=== PATIENT | male | born 1980 | race Caucasian/White ===

== ENCOUNTER 2017-12-13 17:00 | Emergency (ER) | payer OTHER ==
[~2017-12-13] VITALS: Ht 200.7 cm; Wt 164.0 kg
[~2017-12-13 17:00] MED LIST: GABA-585 PO; HYDR-971 PO; IBUP800T19 PO; PANT40TA3 PO; SUCR1ORA5 PO; TEST30SO TD; VENL75CA PO; ZOLP12.52 PO
--- NOTE | 2017-12-13 18:01 | PHYS DOC ---
Past History Past Medical History: GERD, Other Past Surgical History: Other Smoking: Non-smoker Alcohol Use: Rarely Drug Use: None Adult General Chief Complaint Chief Complaint: SUICDAL IDEATION HPI HPI 37-year-old male with history of suicide attempt about 20 years ago. He presents today with increasing suicidal thoughts. His plans range from purchasing weapon and shooting himself to cutting himself with a razor blade. He has not been drinking today. He has a history of suicidal thoughts but reports that in the past they would just go away on the road and he would move all and but he finds the thoughts lingering more these past few days. He is here with his significant other. Review of systems is negative for chest pain shortness of breath fevers chills. All other review of systems is negative unless otherwise noted in history of present illness. ED course: 37-year-old male presenting with suicidal ideation. On arrival is afebrile with a normal heart rate. On examination he has an unremarkable examination other than suicidal thoughts. I believe the patient to be medically clear. We will have our telemetry psychiatrist evaluate the patient for consultation for suicidal ideation. The patient was signed out at [address] Gallagher to follow-up on the patient's blood tests and psychiatry consultation along with reevaluation. My initial plan is that the patient would likely warrant admission suicidal ideation. Review of Systems Review of Systems SEE ABOVE. Allergies Allergies Allergies Coded Allergies Type Severity Reaction Last Updated Verified No Known Drug Allergies 01/02/15 No Physical Exam Physical Exam SEE ABOVE Constitutional: Well developed, well nourished, no acute distress, non-toxic appearance. [] HENT: Normocephalic, atraumatic, bilateral external ears normal, oropharynx moist, no oral exudates, nose normal. [] Eyes: PERRLA, EOMI, conjunctiva normal, no discharge. [] Neck: Normal range of motion, no tenderness, supple, no stridor. [] Cardiovascular:Heart rate regular rhythm, no murmur [] Lungs & Thorax: Bilateral breath sounds clear to auscultation [] Abdomen: Bowel sounds normal, soft, no tenderness, no masses, no pulsatile masses. [] Skin: Warm, dry, no erythema, no rash. [] Back: No tenderness, no CVA tenderness. [] Extremities: No tenderness, no cyanosis, no clubbing, ROM intact, no edema. [] Neurologic: Alert and oriented X 3, normal motor function, normal sensory function, no focal deficits noted. [] Psychologic: Psych Examination: General appearance and behavior: well groomed, maintains good eye contact Speech: normal rate and flow, not pressured Affect: congruent with mood Mood: depressed Perception: no illusions or hallucinations Safety: pos for SI. neg for HI. Cognition - Level of consciousness: awake - Orientation: oriented to person, place and time - Attention and concentration: good - Memory (registration, recent and remote): able to recall short and shelter events - Judgment: demonstrates understanding of personal issues with appropriate ways of solving them - Insight: able to self reflect EKG EKG [] Radiology/Procedures Radiology/Procedures [] Course & Med Decision Making Course & Med Decision Making Pertinent Labs and Imaging studies reviewed. (See chart for details) [] Dragon Disclaimer Dragon Disclaimer This electronic medical record was generated, in whole or in part, using a voice recognition dictation system. ADRIANNE JONES MD Dec 13, 2017 18:01
--- NOTE | 2017-12-13 18:08 | EKG ---
[address] [address] Test Date: 2017-12-13 Test Time: 18:04:28 Pat Name: CORIN ISBELL Department: Room: Gender: M Underwriting Support Specialist: MARIELA : 1980 Requested By: ADRIANNE JONES Order Number: [id number] Reading MD: Measurements Intervals Sawyer Rate: 76 P: -22 VT: 138 QRS: 4 QRSD: 78 T: 27 QT: 348 QTc: 395 Interpretive Statements SINUS RHYTHM INCOMPLETE RIGHT BUNDLE BRANCH BLOCK QRS(T) CONTOUR ABNORMALITY CONSIDER ANTEROSEPTAL MYOCARDIAL DAMAGE POSSIBLY ABNORMAL ECG RI6.01 Compared to ECG 01/02/2015 12:23:19 Incomplete right bundle-branch block now present
[2017-12-13 18:22] LABS: BASO # 0.1 x10^3/uL (0.0-0.2); BASO % 1 % (0-3); EOS # 0.2 x10^3/uL (0.0-0.7); EOS % 3 % (0-3); HEMATOCRIT 45.2 % (39.0-53.0); LYMPH # 2.7 x10^3/uL (1.0-4.8); LYMPH % 34 % (24-48); MEAN CORPUSCULAR HEMOGLOBIN 30 pg (25-35); MEAN CORPUSCULAR HGB CONC 33 g/dL (31-37); MEAN CORPUSCULAR VOLUME 89 fL (79-100); MONO # 0.6 x10^3/uL (0.0-1.1); MONO % 8 % (0-9); NEUT # 4.5 x10^3uL (1.8-7.7); NEUT % 55 % (31-73); PLATELET COUNT 331 x10^3/uL (140-400); RED BLOOD COUNT 5.05 x10^6/uL (4.30-5.70); RED CELL DISTRIBUTION WIDTH 15.6 % (11.5-14.5); WHITE BLOOD COUNT 8.1 x10^3/uL (4.0-11.0)
[2017-12-13 18:36] LABS: ALBUMIN 3.9 g/dL (3.4-5.0); ALBUMIN/GLOBULIN RATIO 0.8 (1.0-1.7); CALCIUM 9.6 mg/dL (8.5-10.1); CREATININE 1.4 mg/dL (0.7-1.3); GFR 56.4; POTASSIUM 4.3 mmol/L (3.5-5.1); TOTAL BILIRUBIN 0.7 mg/dL (0.2-1.0); TOTAL PROTEIN 8.5 g/dL (6.4-8.2)
[2017-12-13] MEDS ORDERED: BUTALB/APAP/CAFEIN 50/325/40MG TABLET. PO PRN (20:15)
[2017-12-13] MEDS ORDERED: ONDANSETRON ODT 4 MG TAB.RAPDIS PO ONE (20:15)
[2017-12-13] MEDS ORDERED: ORPHENADRINE CITRATE 60 MG/2 ML VIAL. IM ONE (21:15)
[2017-12-13 22:54] LABS: CLARITY,URINE CLEAR; COLOR,URINE YELLOW
[2017-12-13 22:55] LABS: BACTERIA,URINE 0 /HPF (0-FEW); BILIRUBIN,URINE NEG (NEG); GLUCOSE,URINE NEG (NEG); NITRITE,URINE NEG (NEG); SQUAMOUS EPITHELIAL CELL,UR MOD /LPF; UROBILINOGEN,URINE 0.2 mg/dL (0.2 mg/dL)
[2017-12-14] MEDS ORDERED: LORazepam 1 MG TABLET PO ONE (02:30)
[2017-12-14 07:37] VITALS: BP 120/55
== END 2017-12-14 07:50 ==
LOC: ER 17:00
DX: R45.851 Suicidal ideations (principal); K21.9 Gastro-esophageal reflux disease without esophagitis
CPT/HCPCS: 36415; 80053; 81001; 84484; 85025; 93005; 96372; 99285; G0480; J2360; Q0162

== ENCOUNTER 2018-08-18 15:03 | Emergency (ER) | payer BC ==
[~2018-08-18] VITALS: Ht 200.7 cm; Wt 175.4 kg
[~2018-08-18 15:03] MED LIST changes: +HYDR-3165 PO; -HYDR-971 PO
[2018-08-18] MEDS ORDERED: IV NORMAL SALINE 1,000ML 1,000 ML IV ONE ×3 (15:30→18:00)
--- NOTE | 2018-08-18 15:33 | PHYS DOC ---
Past History Past Medical History: Diabetes, GERD, Kidney Stones, Migraines, Pancreatitis, Other Past Surgical History: Other Smoking: Non-smoker Alcohol Use: Rarely Drug Use: None Adult General Chief Complaint Chief Complaint: BLOOD IN URINE HPI HPI 38-year-old male presents with blood in his urine. Patient states that he had a sensation in his penis for the last 2 days. Today, he noticed there was blood mixed in with his urine. He also has lower abdominal pain that he did not have yesterday. The patient is diabetic on metformin. He has never had hematuria before. He is not sexually active for the last 1 year. Patient also complains of right lateral foot wound. He has had this for a while and wanted to have it checked out. He denies fever or chills. Review of Systems Review of Systems Constitutional: Denies fever or chills [] Eyes: Denies change in visual acuity, redness, or eye pain [] HENT: Denies nasal congestion or sore throat [] Respiratory: Denies cough or shortness of breath [] Cardiovascular: No additional information not addressed in HPI [] GI: Nausea. Denies abdominal pain, vomiting, bloody stools or diarrhea [] : Dysuria and hematuria[] Musculoskeletal: Denies back pain or joint pain [] Integument: Denies rash or skin lesions [] Neurologic: Denies headache, focal weakness or sensory changes [] Endocrine: Denies polyuria or polydipsia [] All other systems were reviewed and found to be within normal limits, except as documented in this note. Allergies Allergies Allergies Coded Allergies Type Severity Reaction Last Updated Verified No Known Drug Allergies 12/13/17 No Physical Exam Physical Exam Constitutional: Well developed, morbidly obese. Well nourished, no acute distress, non-toxic appearance. [] HENT: Normocephalic, atraumatic, bilateral external ears normal, oropharynx moist, no oral exudates, nose normal. [] Eyes: PERRLA, EOMI, conjunctiva normal, no discharge. [] Neck: Normal range of motion, no tenderness, supple, no stridor. [] Cardiovascular:Heart rate regular rhythm, no murmur [] Lungs & Thorax: Bilateral breath sounds clear to auscultation [] Abdomen: Bowel sounds normal, soft, no tenderness, no masses, no pulsatile masses. [] Skin: Warm, dry, no erythema, no rash. [] Back: No tenderness, no CVA tenderness. [] Extremities: No tenderness, no cyanosis, no clubbing, ROM intact, no edema. [] Neurologic: Alert and oriented X 3, normal motor function, normal sensory function, no focal deficits noted. [] Psychologic: Affect normal, judgement normal, mood normal. : Normal external exam of the penis and scrotum. No tenderness of the testicles. No discharge.[] EKG EKG [] Radiology/Procedures Radiology/Procedures [] Course & Med Decision Making Course & Med Decision Making Pertinent Labs and Imaging studies reviewed. (See chart for details) Patient's labs are unremarkable. His urinalysis is still pending. We have given the patient 2 L of fluid and he has not been able to urinate. I'm concern for prostatitis. We will put in a Ornelas to drain the bladder and I will treat him with levofloxacin for 2 weeks. The patient's urinalysis is negative for infection, but I still plan to treat him for prostatitis. He is stable for discharge at this time. He gave us first dose of levofloxacin in the ED. [] Dragon Disclaimer Dragon Disclaimer This electronic medical record was generated, in whole or in part, using a voice recognition dictation system. Departure Departure: Impression: Primary Impression: Prostatitis, acute Additional Impression: Hematuria Disposition: 01 HOME, SELF-CARE Condition: STABLE Referrals: TOY CABAN (PCP) Patient Instructions: Prostatitis, [id number] Scripts Levofloxacin (LEVOFLOXACIN) 500 Mg Tablet 1 TAB PO DAILY for prostatitis for 14 Days, #14 TAB Prov: SAHRA ZALDIVAR DO 08/18/18 Problem Qualifiers SAHRA ZALDIVAR DO Aug 18, 2018 15:33
[2018-08-18] MEDS ORDERED: ONDANSETRON PF 4 MG/2 ML VIAL. IV ONE (15:45)
[2018-08-18 16:19] LABS: BASO # 0.1 x10^3/uL (0.0-0.2); BASO % 1 % (0-3); EOS # 0.4 x10^3/uL (0.0-0.7); EOS % 6 % (0-3); HEMATOCRIT 40.6 % (39.0-53.0); HEMOGLOBIN 13.6 g/dL (13.0-17.5); LYMPH # 2.4 x10^3/uL (1.0-4.8); LYMPH % 35 % (24-48); MEAN CORPUSCULAR HEMOGLOBIN 30 pg (25-35); MEAN CORPUSCULAR HGB CONC 34 g/dL (31-37); MEAN CORPUSCULAR VOLUME 88 fL (79-100); MONO # 0.4 x10^3/uL (0.0-1.1); MONO % 6 % (0-9); NEUT # 3.6 x10^3uL (1.8-7.7); NEUT % 52 % (31-73); PLATELET COUNT 248 x10^3/uL (140-400); RED BLOOD COUNT 4.61 x10^6/uL (4.30-5.70); RED CELL DISTRIBUTION WIDTH 14.1 % (11.5-14.5); WHITE BLOOD COUNT 6.9 x10^3/uL (4.0-11.0)
[2018-08-18] MEDS ORDERED: KETOROLAC 30 MG/ML VIAL. IV ONE (16:30)
[2018-08-18 16:33] LABS: ALBUMIN 3.3 g/dL (3.4-5.0); ALBUMIN/GLOBULIN RATIO 0.8 (1.0-1.7); CALCIUM 8.8 mg/dL (8.5-10.1); CREATININE 1.2 mg/dL (0.7-1.3); GFR 67.1; POTASSIUM 4.3 mmol/L (3.5-5.1); TOTAL BILIRUBIN 0.3 mg/dL (0.2-1.0); TOTAL PROTEIN 7.2 g/dL (6.4-8.2)
[2018-08-18 17:42] VITALS: BP 115/62
[2018-08-18] MEDS ORDERED: LEVO500T8 PO (17:53)
[2018-08-18] MEDS ORDERED: levoFLOXacin 500 MG TABLET PO ONE (18:00)
[2018-08-18] MEDS ORDERED: MORPHINE SULFATE 4 MG/ML DISP.SYRIN. IV ONE (18:00)
[2018-08-18 18:06] LABS: BACTERIA,URINE 0 /HPF (0-FEW); BILIRUBIN,URINE NEG (NEG); CLARITY,URINE CLEAR; COLOR,URINE YELLOW; GLUCOSE,URINE NEG (NEG); NITRITE,URINE NEG (NEG); SQUAMOUS EPITHELIAL CELL,UR OCC /LPF; UROBILINOGEN,URINE 0.2 mg/dL (0.2 mg/dL); WBC,URINE OCC /HPF (0-4)
[2018-08-18] MEDS ORDERED: PHENAZOPYRIDINE 200 MG TABLET. PO ONE ×2 (18:45)
[2018-10-18] MEDS ORDERED: PANT40TA3 PO (17:12)
[2018-10-18] MEDS ORDERED: ATOR20TA PO (17:12)
== END 2018-08-18 19:45 | disposition home or self-care (01) ==
LOC: ER 15:03
DX: N41.0 Acute prostatitis (principal); R31.9 Hematuria, unspecified; E11.9 Type 2 diabetes mellitus without complications; K21.9 Gastro-esophageal reflux disease without esophagitis; G43.909 Migraine, unspecified, not intractable, without status migrainosus; Z87.442 Personal history of urinary calculi; Z79.84 Long term (current) use of oral hypoglycemic drugs
CPT/HCPCS: 36415; 51702; 80053; 81001; 85025; 96374; 96375; 99284; J1885; J2270; J2405; J7030

== ENCOUNTER 2018-08-22 03:50 | Emergency (ER) | payer BC ==
[~2018-08-22] VITALS: Ht 200.7 cm; Wt 175.4 kg
[~2018-08-22 03:50] MED LIST changes: +LEVO500T8 PO
--- NOTE | 2018-08-22 04:29 | PHYS DOC ---
Past History Past Medical History: Diabetes, GERD, Kidney Stones, Migraines, Pancreatitis, Other (ROSEY YOUSSEF DO) Past Surgical History: Other (ROSEY YOUSSEF DO) Smoking: Non-smoker Alcohol Use: Rarely Drug Use: None (ROSEY YOUSSEF DO) Adult General Chief Complaint Chief Complaint: BLOOD IN URINE HPI HPI Patient is a 38-year-old male who presents with blood in his urine. Patient was evaluated in the emergency department several days ago and diagnosed with prostatitis. He had an indwelling urinary catheter placed due to inability to void at that visit. Since that time he has had intermittent feelings of fullness and then "something would give way" and he would be able to urinate through the catheter. Before early this morning, there was no gross blood visible in the urine. Patient was seen by his primary care physician in follow- up yesterday and instructed to leave the catheter in place until the antibiotics were completed. Patient has not followed up with a urologist. Patient has noted blood and clots in his urine since late last night/early this morning. He reports that he is taking his antibiotics. He notes some mild right flank pain, not as bad as his previous kidney stones. Denies any fevers. Nothing seems to make this any better or worse.[] (ROSEY YOUSSEF DO) Review of Systems Review of Systems Constitutional: Denies fever or chills [] Eyes: Denies change in visual acuity, redness, or eye pain [] HENT: Denies nasal congestion or sore throat [] Respiratory: Denies cough or shortness of breath [] Cardiovascular: No chest pain or palpitations[] GI: Denies abdominal pain, nausea, vomiting, bloody stools or diarrhea [] : See history of present illness[] Musculoskeletal: Denies back pain or joint pain [] Integument: Denies rash or skin lesions [] Neurologic: Denies headache, focal weakness or sensory changes [] Endocrine: Denies polyuria or polydipsia [] All other systems were reviewed and found to be within normal limits, except as documented in this note. (ROSEY YOUSSEF DO) Current Medications Current Medications Current Medications Medications (Trade) Dose Ordered Sig/Dalton Start Time Stop Time Status Last Admin Dose Admin Sodium Chloride 1,000 ml @ 1,000 mls/hr 1X ONCE 08/22/18 04:30 08/22/18 05:29 UNV ([facility]) Allergies Allergies Allergies Coded Allergies Type Severity Reaction Last Updated Verified No Known Drug Allergies 12/13/17 No ([facility]) Physical Exam Physical Exam Constitutional: Well developed, well nourished, no acute distress, non-toxic appearance. [] HENT: Normocephalic, atraumatic, bilateral external ears normal, oropharynx moist, no oral exudates, nose normal. [] Eyes: PERRLA, EOMI, conjunctiva normal, no discharge. [] Neck: Normal range of motion, no tenderness, supple, no stridor. [] Cardiovascular:Heart rate regular rhythm, no murmur [] Lungs & Thorax: Bilateral breath sounds clear to auscultation [] Abdomen: Bowel sounds normal, soft, no tenderness, no masses, no pulsatile masses. : Normal male, bilateral descended testes, urinary catheter in place, blood and clots within the lumen of the urinary catheter and within the collection bag itself.[] Skin: Warm, dry, no erythema, no rash. No petechiae [] Back: No tenderness, no CVA tenderness. [] Extremities: No tenderness, no cyanosis, no clubbing, ROM intact, no edema. [] Neurologic: Alert and oriented X 3, normal motor function, normal sensory function, no focal deficits noted. [] Psychologic: Affect normal, judgement normal, mood normal. [] ([facility]) Current Patient Data Vital Signs Vital Signs Date Time Temp Pulse Resp B/P (MAP) Pulse Ox O2 Delivery O2 Flow Rate FiO2 08/22/18 04:00 98.5 78 18 94 Room Air ([facility]) EKG EKG [] ([facility]) Radiology/Procedures Radiology/Procedures Abdominal and Pelvis CT, Without Contrast: History: Right flank pain and gross hematuria. Comparison: None. Procedure: Axial images are obtained of the abdomen and pelvis, without IV or oral contrast. CT Abdomen without Contrast: Findings: Evaluation of solid organs is limited without contrast. Evaluation of stomach and bowel is limited without oral contrast. Liver: Normal. Spleen: Normal. Pancreas: Normal. Adrenal Glands: Normal. Kidneys: Normal. There is no free air or free fluid. There is no lymphadenopathy. Impression: Please see CT Pelvis without Contrast. End Impression. CT Pelvis without Contrast: Findings: The urinary bladder is collapsed from a Ornelas. The appendix is normal. There is no free fluid. There is no lymphadenopathy. There is no pericolonic inflammation identified. Impression: No evidence of urolithiasis or obstructive uropathy.[] (ROSEY YOUSSEF DO) Course & Med Decision Making Course & Med Decision Making Pertinent Labs and Imaging studies reviewed. (See chart for details) Medical decision making: There does not appear to be a significant urinary tract infection, no significant electrolyte abnormalities, and no kidney stone, no intra-abdominal surgical pathology. ED course: Patient arrived, was placed in bed, and tolerated exam well. He was transported to and from radiology with any complications. As the catheter was being irrigated he reported increasing pain. Ultimately the catheter was removed and replaced. As the balloon was being inflated he reported again increased pain so the catheter was removed. Additional IV fluids were administered to ensure that he can urinate. At 0600 patient care is being endorsed to the oncoming physician with the current plan being to ensure that the patient can urinate without the need for a urinary catheter.[] (ROSEY YOUSSEF DO) Course & Med Decision Making The patient was unable to void. We had to replace his Ornelas catheter. I have strongly advised the patient to call the urology office and make an appointment today. He is stable for discharge at this time. (SAHRA ZALDIVAR DO) Dragon Disclaimer Dragon Disclaimer This electronic medical record was generated, in whole or in part, using a voice recognition dictation system. (ROSEY YOUSSEF DO) Departure Departure: Impression: Primary Impression: Hematuria Additional Impression: Urinary catheter complication Referrals: TOY CABAN (PCP) COSME JUAREZ MD Call today to set up follow-up appointment Patient Instructions: Prostatitis Additional Instructions: Drink plenty of fluids. To call today to set up appointment with the urologist. Return to the ER if worsening pain, more blood in the urine, or any other concerns. Scripts Phenazopyridine Hcl (PYRIDIUM) 200 Mg Tablet 200 MG PO TID for dysuria for 2 Days, #6 TAB Prov: ROSEY YOUSSEF DO 08/22/18 Tamsulosin Hcl (FLOMAX) 0.4 Mg Cap.er.24h 1 CAP PO DAILY for dysuria and enlarged prostate, #30 CAP 0 Refills Prov: ROSEY YOUSSEF DO 08/22/18 Problem Qualifiers Primary Impression: Hematuria Hematuria type: unspecified type Qualified Codes: R31.9 - Hematuria, unspecified Additional Impression: Urinary catheter complication Encounter type: initial encounter Qualified Codes: T83.9XXA - Unspecified complication of genitourinary prosthetic device, implant and graft, initial encounter ROSEY YOUSSEF DO Aug 22, 2018 04:29 SAHRA ZALDIVAR DO Aug 22, 2018 15:18
[2018-08-22] MEDS ORDERED: ONDANSETRON PF 4 MG/2 ML VIAL. IV ONE (05:00)
[2018-08-22] MEDS ORDERED: IV NORMAL SALINE 1,000ML 1,000 ML IV ONE ×3 (05:00→07:30)
[2018-08-22 05:03] LABS: BASO # 0.1 x10^3/uL (0.0-0.2); BASO % 1 % (0-3); EOS # 0.3 x10^3/uL (0.0-0.7); EOS % 4 % (0-3); HEMOGLOBIN 13.8 g/dL (13.0-17.5); LYMPH % 37 % (24-48); MEAN CORPUSCULAR HEMOGLOBIN 30 pg (25-35); MEAN CORPUSCULAR HGB CONC 34 g/dL (31-37); MEAN CORPUSCULAR VOLUME 89 fL (79-100); MONO # 0.7 x10^3/uL (0.0-1.1); MONO % 8 % (0-9); NEUT % 50 % (31-73); PLATELET COUNT 270 x10^3/uL (140-400); RED BLOOD COUNT 4.63 x10^6/uL (4.30-5.70)
--- NOTE | 2018-08-22 05:04 | RAD ---
Abdominal and Pelvis CT, Without Contrast: History: Right flank pain and gross hematuria. Comparison: None. Procedure: Axial images are obtained of the abdomen and pelvis, without IV or oral contrast. CT Abdomen without Contrast: Findings: Evaluation of solid organs is limited without contrast. Evaluation of stomach and bowel is limited without oral contrast. Liver: Normal. Spleen: Normal. Pancreas: Normal. Adrenal Glands: Normal. Kidneys: Normal. There is no free air or free fluid. There is no lymphadenopathy. Impression: Please see CT Pelvis without Contrast. End Impression. CT Pelvis without Contrast: Findings: The urinary bladder is collapsed from a Ornelas. The appendix is normal. There is no free fluid. There is no lymphadenopathy. There is no pericolonic inflammation identified. Impression: No evidence of urolithiasis or obstructive uropathy. End impression PQRS Compliance Statement: One or more of the following individualized dose reduction techniques were utilized for this examination: 1. Automated exposure control 2. Adjustment of the mA and/or kV according to patient size 3. Use of iterative reconstruction technique Electronically signed by: Yon Angela III, MD (08/22/2018 5:01 AM) [id number]
[2018-08-22 05:12] LABS: ALBUMIN 3.3 g/dL (3.4-5.0); ALBUMIN/GLOBULIN RATIO 0.8 (1.0-1.7); CALCIUM 8.9 mg/dL (8.5-10.1); CREATININE 1.4 mg/dL (0.7-1.3); GFR 56.1; TOTAL BILIRUBIN 0.3 mg/dL (0.2-1.0); TOTAL PROTEIN 7.2 g/dL (6.4-8.2)
[2018-08-22 05:33] LABS: BILIRUBIN,URINE NEG (NEG); CLARITY,URINE CLOUDY; COLOR,URINE AMBER
[2018-08-22 05:34] LABS: BACTERIA,URINE 0 /HPF (0-FEW); RBC,URINE >40 /HPF (0-2); SQUAMOUS EPITHELIAL CELL,UR OCC /LPF; WBC,URINE OCC /HPF (0-4)
[2018-08-22] MEDS ORDERED: PHEN-318 PO (05:57)
[2018-08-22] MEDS ORDERED: TAMS0.4C97 PO (05:57)
[2018-08-22] MEDS ORDERED: PHENAZOPYRIDINE 100 MG TABLET. PO ONE (06:30)
[2018-08-22] MEDS ORDERED: TAMSULOSIN 0.4 MG CAP.ER.24H. PO ONE (06:30)
[2018-08-22] MEDS ORDERED: LIDOCAINE 2% JELLY 10ML IN APPLICATOR. ONE (08:13)
[2018-08-22 08:26] VITALS: BP 101/77
[2018-10-18] MEDS ORDERED: ATOR20TA PO (17:12)
[2018-10-18] MEDS ORDERED: PANT40TA3 PO (17:12)
== END 2018-08-22 08:28 | disposition home or self-care (01) ==
LOC: ER 03:50
DX: R31.0 Gross hematuria (principal); T83.9XXA Unspecified complication of genitourinary prosthetic device, implant and graft, initial encounter; E11.9 Type 2 diabetes mellitus without complications; K21.9 Gastro-esophageal reflux disease without esophagitis; G43.909 Migraine, unspecified, not intractable, without status migrainosus; Z87.442 Personal history of urinary calculi
CPT/HCPCS: 36415; 51701; 74176; 80053; 81001; 85025; 85610; 96374; 99284; J2405; 96361; J7030

== ENCOUNTER → 2018-08-28 | Outpatient (CLI) | payer BC ==
[2018-08-22 08:26] VITALS: BP 101/77
[~2018-08-28] MED LIST changes: +AMOX1TAB61 PO; +ATOR20TA PO; +CARI350T14 PO; +DIPH25CA58 PO; +GABA800T5 PO; +LAMO100T; +METF10007 PO; +NAPR500T8 PO; +ONDA4TAB7 PO; +PHEN-318 PO; +PROM25TA10 PO; +PROP10TA PO; +TAMS0.4C97 PO; +VENL150C6; +ZOLP10TA4 PO
--- NOTE | 2018-08-28 15:51 | RAD ---
Right foot radiograph 08/28/2018 2:25 PM INDICATION: Right foot ulcer on the bottom lateral side COMPARISON: None available. TECHNIQUE: 2 views the right foot are provided. FINDINGS: There is no acute fracture or dislocation. There is a bipartite medial hallux sesamoid. Bone mineralization is within normal limits. Joint spaces are maintained. Regional mild lateral soft tissue swelling. There is no soft tissue gas or osseous erosion. IMPRESSION: No acute fracture or dislocation. Mild lateral soft tissue swelling without suspicious osseous abnormality. Electronically signed by: Diana Martell MD (08/28/2018 3:48 PM) [id number]
== END | disposition home or self-care (01) ==
LOC: PMG 14:14
PROVIDERS: ATTEND Physician Assistant
DX: L97.519 Non-pressure chronic ulcer of other part of right foot with unspecified severity (principal)
CPT/HCPCS: 73620

== ENCOUNTER 2018-09-28 12:38 | Emergency (ER) | payer BC ==
[~2018-09-28] VITALS: Ht 200.7 cm; Wt 181.4 kg
[~2018-09-28 12:38] MED LIST changes: -AMOX1TAB61 PO; -ATOR20TA PO; -CARI350T14 PO; -DIPH25CA58 PO; -GABA800T5 PO; -LAMO100T; -METF10007 PO; -NAPR500T8 PO; -ONDA4TAB7 PO; -PROM25TA10 PO; -PROP10TA PO; -VENL150C6; -ZOLP10TA4 PO
[2018-09-28] MEDS ORDERED: NAPR500T8 PO (13:01)
--- NOTE | 2018-09-28 13:01 | PHYS DOC ---
Past History Past Medical History: Diabetes, GERD, Kidney Stones, Migraines, Pancreatitis, Other Past Surgical History: Other Smoking: Non-smoker Alcohol Use: Rarely Drug Use: None Adult General Chief Complaint Chief Complaint: KNEE INJURY HPI HPI 38-year-old morbidly obese male with a history of diabetes who is currently wearing a cast on his right lower extremity secondary to diabetic wounds presents with right knee injury. He states he was walking around the cast in his boot over the cast when his right knee buckled. He doesn't have a lot of pain in that knee currently. He has not noticed any swelling. He states this happened a couple of hours ago. He denies any other injury.[] Review of Systems Review of Systems Constitutional: Denies fever or chills [] Eyes: Denies change in visual acuity, redness, or eye pain [] HENT: Denies nasal congestion or sore throat [] Respiratory: Denies cough or shortness of breath [] Cardiovascular: No additional information not addressed in HPI [] GI: Denies abdominal pain, nausea, vomiting, bloody stools or diarrhea [] : Denies dysuria or hematuria [] Musculoskeletal: Per history of present illness[] Integument: Chronic wound right lower extremity[] Neurologic: Denies headache, focal weakness or sensory changes [] Endocrine: Denies polyuria or polydipsia [] All other systems were reviewed and found to be within normal limits, except as documented in this note. Allergies Allergies Allergies Coded Allergies Type Severity Reaction Last Updated Verified No Known Drug Allergies 09/28/18 No Physical Exam Physical Exam Constitutional: Well developed, well nourished, no acute distress, non-toxic appearance. [] HENT: Normocephalic, atraumatic, bilateral external ears normal, oropharynx moist, no oral exudates, nose normal. [] Eyes: PERRLA, EOMI, conjunctiva normal, no discharge. [] Neck: Normal range of motion, no tenderness, supple, no stridor. [] Cardiovascular:Heart rate regular rhythm, no murmur [] Lungs & Thorax: Bilateral breath sounds clear to auscultation [] Abdomen: Bowel sounds normal, soft, no tenderness, no masses, no pulsatile masses. [] Skin: Warm, dry, no erythema, no rash. [] Back: No tenderness, no CVA tenderness. [] Extremities: Right knee is full range of motion no swelling no patellar apprehension ligaments are stable, there is a cast on his right lower leg[] Neurologic: Alert and oriented X 3, normal motor function, normal sensory function, no focal deficits noted. [] Psychologic: Affect normal, judgement normal, mood normal. [] Current Patient Data Vital Signs Vital Signs Date Time Temp Pulse Resp B/P (MAP) Pulse Ox O2 Delivery O2 Flow Rate FiO2 09/28/18 12:51 98.2 94 18 97 Room Air EKG EKG [] Radiology/Procedures Radiology/Procedures [] Course & Med Decision Making Course & Med Decision Making Pertinent Labs and Imaging studies reviewed. (See chart for details) [] Dragon Disclaimer Dragon Disclaimer This electronic medical record was generated, in whole or in part, using a voice recognition dictation system. Departure Departure: Impression: Primary Impression: Right knee sprain Disposition: HOME, SELF-CARE Condition: STABLE Referrals: TOY CABAN (PCP) Patient Instructions: Knee - Wear and Tear Disorders Additional Instructions: Return to the emergency department with any new or concerning symptoms Scripts Naproxen (NAPROXEN) 500 Mg Tablet.dr 1 TAB PO Q12HR PRN for PAIN, #60 TAB 1 Refill Prov: QUIANA RAE DO 09/28/18 Problem Qualifiers Primary Impression: Right knee sprain Encounter type: initial encounter Involved ligament of knee: unspecified ligament Qualified Codes: S83.91XA - Sprain of unspecified site of right knee, initial encounter QUIANA RAE DO September 28, 2018 13:01
[2018-10-18] MEDS ORDERED: PANT40TA3 PO (17:12)
[2018-10-18] MEDS ORDERED: ATOR20TA PO (17:12)
== END 2018-09-28 13:23 | disposition home or self-care (01) ==
LOC: ER 12:38
DX: S83.91XA Sprain of unspecified site of right knee, initial encounter (principal); E11.9 Type 2 diabetes mellitus without complications; K21.9 Gastro-esophageal reflux disease without esophagitis; G43.909 Migraine, unspecified, not intractable, without status migrainosus; Z87.442 Personal history of urinary calculi; X50.9XXA Other and unspecified overexertion or strenuous movements or postures, initial encounter; Y93.01 Activity, walking, marching and hiking; Y92.89 Other specified places as the place of occurrence of the external cause; Y99.8 Other external cause status
CPT/HCPCS: 99284

== ENCOUNTER → 2018-10-05 | Outpatient (CLI) | payer BC ==
[2018-09-28 12:51] VITALS: BP 138/70
[~2018-10-05] MED LIST changes: +AMOX1TAB61 PO; +ATOR20TA PO; +CARI350T14 PO; +DIPH25CA58 PO; +GABA800T5 PO; +LAMO100T; +METF10007 PO; +NAPR500T8 PO; +ONDA4TAB7 PO; +PROM25TA10 PO; +PROP10TA PO; +VENL150C6; +ZOLP10TA4 PO
--- NOTE | 2018-10-05 11:02 | RAD ---
Five-view lumbar spine dated 10/05/2018. No comparison available. Clinical data indication: Low back pain. FINDINGS: AP, lateral, bilateral black and cone-down views of lumbosacral junction. 5 nonrib-bearing vertebral levels. Vertebral body and disc heights are maintained. Mild endplate hypertrophic changes throughout. Mild arthrosis lower lumbar apophyseal joints. No pars defects on the oblique views. IMPRESSION: 1. No acute radiographic abnormality. 2. Mild multilevel spondylosis. Electronically signed by: Enrrique Mckeon MD (10/05/2018 10:58 AM) [facility]
--- NOTE | 2018-10-05 11:02 | RAD ---
Three-view right knee dated 10/05/2018. No comparison available. Clinical data indication: Pain after injury. FINDINGS: 3 views the right knee show normal bony alignment. No displaced fracture. No acute osseous or articular abnormality. No apparent joint effusion or loose body. IMPRESSION: 1. No acute radiographic abnormality. 2. Mild tricompartmental DJD. Electronically signed by: Enrrique Mckeon MD (10/05/2018 10:59 AM) [facility]
== END | disposition home or self-care (01) ==
LOC: DXRAD 10:21
PROVIDERS: ATTEND Physician Assistant Medical
DX: M47.817 Spondylosis without myelopathy or radiculopathy, lumbosacral region (principal); M17.11 Unilateral primary osteoarthritis, right knee
CPT/HCPCS: 72110; 73562

== ENCOUNTER 2018-10-17 16:52 | Inpatient (IN) | payer BC ==
[~2018-10-17] VITALS: Ht 200.7 cm; Wt 180.7 kg
[~2018-10-17 16:52] MED LIST changes: -AMOX1TAB61 PO; -ATOR20TA PO; -CARI350T14 PO; -DIPH25CA58 PO; -GABA800T5 PO; -LAMO100T; -METF10007 PO; -ONDA4TAB7 PO; -PROM25TA10 PO; -PROP10TA PO; -VENL150C6; -ZOLP10TA4 PO
--- NOTE | 2018-10-17 17:00 | PHYS DOC ---
Past History Past Medical History: Diabetes, Kidney Stones, Pancreatitis, Prostatitis, Other Past Surgical History: Other Smoking: Non-smoker Alcohol Use: None Drug Use: None Adult General Chief Complaint Chief Complaint: CHEST PAIN [facility] HPI 38-year-old male presents with sudden onset chest pain. The patient was sitting in his car about running and when he began to get some mild shortness of breath, followed by a central stabbing chest pain. Increase in intensity over a few minutes. He also became diaphoretic. At this time he rates the pain a 7 out of 10. He continues to have diaphoresis. He does not feel quite as short of breath. The patient is a large individual at 6 foot 7 and 175 kg. He is also diabetic. He does not have a personal cardiac history. Coronary artery disease does run in his family. The patient had a stress test about 5 years ago that was reported to be negative. He denies fever or chills. The patient has not had symptoms like this before. Review of Systems Review of Systems Constitutional: Denies fever or chills [] Eyes: Denies change in visual acuity, redness, or eye pain [] HENT: Denies nasal congestion or sore throat [] Respiratory: shortness of breath [] Cardiovascular: No additional information not addressed in HPI [] GI: Denies abdominal pain, nausea, vomiting, bloody stools or diarrhea [] : Denies dysuria or hematuria [] Musculoskeletal: Denies back pain or joint pain [] Integument: Denies rash or skin lesions [] Neurologic: Denies headache, focal weakness or sensory changes [] Endocrine: Denies polyuria or polydipsia [] All other systems were reviewed and found to be within normal limits, except as documented in this note. Allergies Allergies Allergies Coded Allergies Type Severity Reaction Last Updated Verified No Known Drug Allergies 09/28/18 No Physical Exam Physical Exam Constitutional: Well developed, morbid obesity, well nourished, mild acute distress, diaphoretic. [] HENT: Normocephalic, atraumatic, bilateral external ears normal, oropharynx moist, no oral exudates, nose normal. [] Eyes: PERRLA, EOMI, conjunctiva normal, no discharge. [] Neck: Normal range of motion, no tenderness, supple, no stridor. [] Cardiovascular:Heart rate regular rhythm, no murmur [] Lungs & Thorax: Bilateral breath sounds clear to auscultation [] Abdomen: Bowel sounds normal, soft, no tenderness, no masses, no pulsatile masses. [] Skin: Warm, dry, no erythema, no rash. [] Back: No tenderness, no CVA tenderness. [] Extremities: No tenderness, no cyanosis, no clubbing, ROM intact, no edema. [] Neurologic: Alert and oriented X 3, normal motor function, normal sensory function, no focal deficits noted. [] Psychologic: Affect normal, judgement normal, mood concerned. [] EKG EKG Sinus rhythm, rate 81, normal axis, no ST elevations or depressions[] Radiology/Procedures Radiology/Procedures [] Course & Med Decision Making Course & Med Decision Making Pertinent Labs and Imaging studies reviewed. (See chart for details) Patient's labs are unremarkable. His EKG is unremarkable. His troponin is negative. The troponin is only one hour after the symptoms started. The patient's HEART score is 4. The patient's chest x-ray is also suspicious for pneumonia on the right side. I will treat him with azithromycin. I spoke with Dr. Cordero and he has accepted patient for admission chest pain rule out as well as further treatment of his pneumonia. The patient is in agreement with this plan. 33 minutes of critical care time was spent on this patient exclusive of other billable procedures. [] Dragon Disclaimer Dragon Disclaimer This electronic medical record was generated, in whole or in part, using a voice recognition dictation system. Departure Departure: Impression: Primary Impression: Chest pain Additional Impression: Pneumonia Disposition: ADMITTED INPATIENT Admitting Physician: Renata Cordero Condition: STABLE Referrals: TOY CABAN (PCP) Problem Qualifiers Primary Impression: Chest pain Chest pain type: precordial pain Qualified Codes: R07.2 - Precordial pain Additional Impression: Pneumonia Pneumonia type: due to unspecified organism Laterality: right Lung location: upper lobe of lung Qualified Codes: J18.1 - Lobar pneumonia, unspecified organism SAHRA ZALDIVAR DO October 17, 2018 17:00
--- NOTE | 2018-10-17 17:01 | EKG ---
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
[2018-10-17 17:22] LABS: BASO # 0.1 x10^3/uL (0.0-0.2); BASO % 1 % (0-3); EOS # 0.4 x10^3/uL (0.0-0.7); EOS % 5 % (0-3); HEMATOCRIT 45.2 % (39.0-53.0); HEMOGLOBIN 14.9 g/dL (13.0-17.5); LYMPH % 29 % (24-48); MEAN CORPUSCULAR HEMOGLOBIN 30 pg (25-35); MEAN CORPUSCULAR HGB CONC 33 g/dL (31-37); MEAN CORPUSCULAR VOLUME 91 fL (79-100); MONO # 0.6 x10^3/uL (0.0-1.1); MONO % 9 % (0-9); NEUT # 3.9 x10^3uL (1.8-7.7); NEUT % 56 % (31-73); PLATELET COUNT 350 x10^3/uL (140-400); RED BLOOD COUNT 4.98 x10^6/uL (4.30-5.70); RED CELL DISTRIBUTION WIDTH 16.1 % (11.5-14.5); WHITE BLOOD COUNT 6.9 x10^3/uL (4.0-11.0)
[2018-10-17] MEDS ORDERED: ASPIRIN 81 MG TAB.CHEW PO ONE (17:30)
[2018-10-17] MEDS ORDERED: NITROGLYCERIN SUBLINGUAL 0.4 MG BOTTLE OF 25. SL ONE (17:30)
[2018-10-17] MEDS ORDERED: IV NORMAL SALINE 1,000ML 1,000 ML IV ONE (17:30)
[2018-10-17] MEDS ORDERED: ASPIRIN 81 MG TAB.CHEW ONE (17:36)
[2018-10-17 17:38] LABS: ALBUMIN 3.9 g/dL (3.4-5.0); ALBUMIN/GLOBULIN RATIO 1.1 (1.0-1.7); CREATININE 1.3 mg/dL (0.7-1.3); GFR 61.1; POTASSIUM 4.9 mmol/L (3.5-5.1); TOTAL BILIRUBIN 0.3 mg/dL (0.2-1.0); TOTAL PROTEIN 7.6 g/dL (6.4-8.2)
[2018-10-17] MEDS ORDERED: AZITHROMYCIN 250 MG TABLET. PO ONE (18:00)
[2018-10-17] MEDS ORDERED: AZITHROMYCIN 250 MG TABLET. ONE (18:05)
[2018-10-17] MEDS ORDERED: MORPHINE SULFATE 4 MG/ML DISP.SYRIN. IV PRN (18:15)
[2018-10-17] MEDS ORDERED: NITROGLYCERIN SUBLINGUAL 0.4 MG BOTTLE OF 25. SL PRN (18:15)
[2018-10-17 19:03] VITALS: BP 122/81
[2018-10-17] MEDS: ACETAMINOPHEN 325 MG TABLET PO PRN (22:23)
[2018-10-17 23:04] VITALS: BP 127/83
[2018-10-18] MEDS ORDERED: METF10007 PO (00:03)
[2018-10-18] MEDS ORDERED: GABA800T5 PO (00:03)
[2018-10-18] MEDS ORDERED: DIPH25CA58 PO (00:03)
[2018-10-18] MEDS ORDERED: ZOLP10TA4 PO (00:03)
[2018-10-18] MEDS ORDERED: LAMO100T (00:03)
[2018-10-18] MEDS ORDERED: PROM25TA10 PO (00:03)
[2018-10-18] MEDS ORDERED: VENL150C6 (00:03)
[2018-10-18] MEDS ORDERED: ONDA4TAB7 PO (00:03)
--- NOTE | 2018-10-18 00:30 | NUR ---
PT presented to the ER with chest pain, admitted for pneumonia. PT with 2 negative troponin lab values to date. PT transported via EMS, able to walk to bed safely. PT ordered bariatric bed, bed arrived, PT transferred safely to new bed. PT belongings noted. PMH, PSH, SH, FH, medications reviewed with PT and who was present at admit. PT oriented to unit.
--- NOTE | 2018-10-18 01:00 | RAD ---
PA and lateral chest radiographs 10/17/2018 CLINICAL HISTORY: Chest pain. Shortness of breath. PA and two lateral digital radiographs of the chest were obtained. Comparison study is dated 01/02/2015. The cardiac and mediastinal silhouettes are within normal limits in size and configuration. No acute pulmonary infiltrate is seen. No pleural effusion or pneumothorax is noted. The osseous structures are grossly intact. IMPRESSION: No acute abnormality is seen. Electronically signed by: Malachi Gross MD (10/18/2018 12:57 AM) [facility]
[2018-10-18 05:53] VITALS: BP 134/82
--- NOTE | 2018-10-18 07:31 | PDOC2 ---
CARDIAC CONSULT DATE OF CONSULT Date Of Consult DATE: 10/18/18 TIME: 07:28 REASON FOR CONSULT Reason for Consult Chest pain REFERRING PHYSICIAN Referring Physician Dr. Cordero SOURCE Source: Chart review, Patient HPI History of Present Illness This is a 38 yo male who presented secondary to chest pain. Patient reports he was out running errands yesterday afternoon and began having pain in his central chest. Reports as stabbing pain on each side of his sternum. Non-radiating. [place] slightly short of breath. Began to feel a little dizzy so he drove himself to the ED for further evaluation and treatment. No specific worsening or relieving factors. Pain continues to have mild stabbing pain on each side of his sternum. Was diaphoretic in ED, but reports this to be chronic since he was a teenager. Reports intermittent feeling of squeezing in his chest that radiates up through his neck and causes his "eye balls to vibrate". This has been occurring intermittently for the last 3 weeks. No associated shortness of breath, dizziness, palpitations, diaphoresis, or nausea/vomiting with this. Not brought on by activity. Also reports cold/congestion with intermittent cough for the last week. Has a history of GERD and was previously on PPI, but has not taken for some time. PAST MEDICAL HISTORY Cardiovascular: No pertinent hx Pulmonary: Other (ELIZABETH with CPAP) CENTRAL NERVOUS SYSTEM: Periperal neuropathy GI: GERD Heme/Onc: No pertinent hx Hepatobiliary: Other (fatty liver) Psych: Anxiety, Depression Musculoskeletal: Osteoarthritis Rheumatologic: No pertinent hx Infectious disease: No pertinent hx ENT: No pertinent hx Renal/: No pertinent hx Endocrine: Diabetes, Other (morbid obesity ) Dermatology: No pertinent hx PAST SURGICAL HISTORY Past Surgical History: Other (bilateral shoulder surgery ) FAMILY HISTORY Family History: Heart Disease (father ), Stroke SOCIAL HISTORY Smoke: No ALCOHOL: none Drugs: None Lives: with Family CURRENT MEDICATIONS Current Medications Current Medications Aspirin (Children'S Aspirin) 324 mg 1X ONCE PO Last administered on 10/17/18at 17:42; Start 10/17/18 at 17:30; Stop 10/17/18 at 17:35; Status DC Nitroglycerin (Nitrostat) 0.4 mg 1X ONCE SL Last administered on 10/17/18at 17:42; Start 10/17/18 at 17:30; Stop 10/17/18 at 17:35; Status DC Sodium Chloride 1,000 ml @ 1,000 mls/hr 1X ONCE IV Last administered on 10/17/18at 17:42; Start 10/17/18 at 17:30; Stop 10/17/18 at 18:29; Status DC Aspirin (Children'S Aspirin) 81 mg STK-MED ONCE .ROUTE ; Start 10/17/18 at 17:36; Stop 10/17/18 at 17:37; Status DC Azithromycin (Zithromax) 500 mg 1X ONCE PO Last administered on 10/17/18at 18:06; Start 10/17/18 at 18:00; Stop 10/17/18 at 18:05; Status DC Morphine Sulfate (Morphine 4mg Syringe) 2 mg PRN Q2HR PRN IV PAIN Last administered on 10/18/18at 02:28; Start 10/17/18 at 18:15 Nitroglycerin (Nitrostat) 0.4 mg PRN Q5MIN PRN SL CHEST PAIN; Start 10/17/18 at 18:15; Stop 10/18/18 at 18:14 Azithromycin (Zithromax) 250 mg STK-MED ONCE .ROUTE ; Start 10/17/18 at 18:05; Stop 10/17/18 at 18:06; Status DC Acetaminophen (Tylenol) 650 mg PRN Q6HRS PRN PO PAIN / TEMP Last administered on 10/17/18at 22:23; Start 10/17/18 at 22:15 Diphenhydramine HCl (Benadryl) 25 mg Q8HRS PO ; Start 10/18/18 at 14:00; Status UNV Non-Formulary Medication (Gabapentin ) 800 mg TID PO ; Start 10/18/18 at 09:00; Status UNV Non-Formulary Medication (Lamotrigine ) 150 mg HS .ROUTE ; Start 10/18/18 at 21:00; Status UNV Non-Formulary Medication (Metformin Hcl ) 1 tab TID PO ; Start 10/18/18 at 09:00; Status UNV Non-Formulary Medication (Ondansetron Hcl (Zofran)) 1 tab Q6HRS PO ; Start 10/18/18 at 12:00; Status UNV Non-Formulary Medication (Promethazine Hcl ) 25 mg HS PO ; Start 10/18/18 at 21:00; Status UNV Non-Formulary Medication (Venlafaxine Hcl (Venlafaxine Hcl Er)) 150 mg HS .ROUTE ; Start 10/18/18 at 21:00; Status UNV Non-Formulary Medication (Zolpidem Tartrate ) 10 mg PRN QHS PRN PO INSOMNIA; Start 10/18/18 at 07:30; Status UNV Active Scripts Active Reported Promethazine Hcl 25 Mg Tablet 25 Mg PO HS Zofran (Ondansetron Hcl) 4 Mg Tablet 1 Tab PO Q6HRS Benadryl (Diphenhydramine Hcl) 25 Mg Capsule 25 Mg PO Q8HRS Lamotrigine 100 Mg Tablet 150 Mg HS Metformin Hcl 1,000 Mg Tablet 1 Tab PO TID Venlafaxine Hcl Er (Venlafaxine Hcl) 150 Mg Cap.er.24h 150 Mg HS Gabapentin 800 Mg Tablet 800 Mg PO TID Zolpidem Tartrate 10 Mg Tablet 10 Mg PO PRN QHS PRN Axiron (Testosterone) 30 Mg/1.5 Ml Wandy.md.funeral director and embalmer 30 Mg TD ALLERGIES Allergies: Coded Allergies: No Known Drug Allergies (Unverified , 09/28/18) ROS Review of Systems 14 point ROS conducted with pertinent positives noted above in HPI PHYSICAL EXAM General: Alert, Oriented X3, Cooperative, No acute distress HEENT: Atraumatic Lungs: Clear to auscultation, Other (no chest tenderness) Heart: Regular rate, Normal S1, Normal S2 Abdomen: Soft, Other (obese ) Extremities: No edema, Normal pulses Skin: No rashes, No significant lesion (right foot wound ) Neuro: Normal speech, Sensation intact Psych/Mental Status: Mental status NL, Mood NL MUSCULOSKELETAL: No deformity VITALS Vital Signs Vital Signs Date Time Temp Pulse Resp B/P (MAP) Pulse Ox O2 Delivery O2 Flow Rate FiO2 10/18/18 05:53 97.9 84 20 134/82 (99) Room Air 96.0 10/17/18 23:04 97 LABS LABS Laboratory Tests Test 10/17/18 17:10 10/17/18 19:56 10/17/18 22:55 10/18/18 02:05 White Blood Count 6.9 x10^3/uL (4.0-11.0) Red Blood Count 4.98 x10^6/uL (4.30-5.70) Hemoglobin 14.9 g/dL (13.0-17.5) Hematocrit 45.2 % (39.0-53.0) Mean Corpuscular Volume 91 fL (79-100) Mean Corpuscular Hemoglobin 30 pg (25-35) Mean Corpuscular Hemoglobin Concent 33 g/dL (31-37) Red Cell Distribution Width 16.1 % (11.5-14.5) Platelet Count 350 x10^3/uL (140-400) Neutrophils (%) (Auto) 56 % (31-73) Lymphocytes (%) (Auto) 29 % (24-48) Monocytes (%) (Auto) 9 % (0-9) Eosinophils (%) (Auto) 5 % (0-3) Basophils (%) (Auto) 1 % (0-3) Neutrophils # (Auto) 3.9 x10^3uL (1.8-7.7) Lymphocytes # (Auto) 2.0 x10^3/uL (1.0-4.8) Monocytes # (Auto) 0.6 x10^3/uL (0.0-1.1) Eosinophils # (Auto) 0.4 x10^3/uL (0.0-0.7) Basophils # (Auto) 0.1 x10^3/uL (0.0-0.2) Sodium Level 141 mmol/L (136-145) Potassium Level 4.9 mmol/L (3.5-5.1) Chloride Level 103 mmol/L (98-107) Carbon Dioxide Level 30 mmol/L (21-32) Anion Gap 8 (6-14) Blood Urea Nitrogen 18 mg/dL (8-26) Creatinine 1.3 mg/dL (0.7-1.3) Estimated GFR (Cockcroft-Gault) 61.1 BUN/Creatinine Ratio 14 (6-20) Glucose Level 138 mg/dL (70-99) Calcium Level 10.0 mg/dL (8.5-10.1) Total Bilirubin 0.3 mg/dL (0.2-1.0) Aspartate Amino Transf (AST/SGOT) 38 U/L (15-37) Alanine Aminotransferase (ALT/SGPT) 40 U/L (16-63) Alkaline Phosphatase 108 U/L (46-116) Troponin I Quantitative < 0.017 ng/mL (0-0.055) < 0.017 ng/mL (0-0.055) < 0.017 ng/mL (0-0.055) Total Protein 7.6 g/dL (6.4-8.2) Albumin 3.9 g/dL (3.4-5.0) Albumin/Globulin Ratio 1.1 (1.0-1.7) Glucose (Fingerstick) 115 mg/dL (70-99) ASSESSMENT/PLAN Assessment/Plan 1. Chest pain, atypical. AMI ruled out. EKG without acute changes. Possibly GI in nature 2. GERD; not taking PPI 3. Diabetes, II 4. Peripheral neuropathy 5. ELIZABETH with CPAP 6. Morbid obesity 7. Depression/anxiety Recommendations Lipid panel Echo to assess LV systolic function GI cocktail Consider outpatient stress test given risk factors BISMARK JORGE APRN October 18, 2018 07:31
[2018-10-18] MEDS ORDERED: ZOLPIDEM 5 MG TABLET. PO PRN (07:45)
[2018-10-18] MEDS ORDERED: LIDO:MAALOX 1:1 20 ML SINGLE DOSE. PO ONE (08:15)
[2018-10-18] MEDS: metFORMIN 500 MG TABLET PO SCH ×2 (08:28→17:30)
[2018-10-18] MEDS: GABAPENTIN 400 MG CAPSULE. PO SCH ×2 (08:28→14:20)
[2018-10-18] MEDS: VENLAFAXINE 50 MG TABLET. PO SCH ×2 (08:31→14:23)
[2018-10-18] MEDS ORDERED: ONDANSETRON ODT 4 MG TAB.RAPDIS PO PRN (08:40)
[2018-10-18] MEDS ORDERED: diphenhydrAMINE HCL 25 MG CAPSULE PO PRN (08:40)
[2018-10-18] MEDS ORDERED: CARI350T14 PO (08:42)
[2018-10-18] MEDS ORDERED: PROP10TA PO (08:42)
[2018-10-18] MEDS: ACETAMINOPHEN 325 MG TABLET PO PRN (09:34)
[2018-10-18 11:09] VITALS: BP 128/79
[2018-10-18] MEDS ORDERED: SUMAtriptan SUCC 6 MG/0.5 ML VIAL SQ ONE (11:45)
[2018-10-18] MEDS ORDERED: ONDANSETRON ODT 4 MG TAB.RAPDIS PO SCH (12:00)
[2018-10-18] MEDS ORDERED: diphenhydrAMINE HCL 25 MG CAPSULE PO SCH (14:00)
--- NOTE | 2018-10-18 15:15 | NUR ---
wound care patient seen per wound care consult. see wound assessment. patient has a DFU to the right plantar foot, the wound was cleaned, and redressed with Xeroform gauze and a foam dressings. patient educated to continue to wear his off-loading shoe. notified JESSICA White about the POC and wound care will continue to f/u.
--- NOTE | 2018-10-18 16:05 | CARD ---
MR#: [id number] Date of Study: 10/18/2018 Ordering Physician: BISMARK JORGE, Referring Physician: MUNIR TORRES Tech: Indiana Mishra [place] APPROVED REPORT EXAM: Two-dimensional and M-mode echocardiogram with Doppler and color Doppler. Other Information Quality : Technically LimitedHR: 95bpm Rhythm : NSRTechnically limited study due to body habitus. INDICATION Chest Pain 2D DIMENSIONS RVDd3.4 (2.9-3.5cm)Left Atrium(2D)3.2 (1.6-4.0cm) IVSd1.2 (0.7-1.1cm)Aortic Root(2D)2.9 (2.0-3.7cm) LVDd4.9 (3.9-5.9cm)LVOT Diameter2.3 (1.8-2.4cm) PWd1.0 (0.7-1.1cm)LVDs3.8 (2.5-4.0cm) FS (%) 23.2 %SV52.9 ml LVEF(%)46.4 (>50%) M-Mode DIMENSIONS Left Atrium(MM)3.33 (2.5-4.0cm)Aortic Root2.82 (2.2-3.7cm) Aortic Valve AoV Peak Shayan.132.7cm/sAoV VTI24.1cm AO Peak GR.7.0mmHgLVOT Peak Shayan.116.9cm/s LVOT VTI 25.36cmAO Mean GR.3mmHg FLETCHER (VMAX)3.70xu0UIA (VTI)4.48cm2 Mitral Valve MV E Jvervdkf96.2cm/sMV DECEL [id number] MV A Yqrkwvrf00.8cm/sE/A Ratio1.4 Pulmonary Valve PV Peak Llwfkbpt880.5cm/sPV Peak Grad.6mmHg LEFT VENTRICLE The left ventricle is normal size. There is borderline to mild concentric left ventricular hypertroph y. Left ventricle systolic function is normal. EF 55% There is normal LV segmental wall motion. The l eft ventricular diastolic function and filling is normal for age. RIGHT VENTRICLE The right ventricle is borderline dilated. There is normal right ventricular wall thickness. The righ t ventricular systolic function is normal. ATRIA The left atrium size is normal. The right atrium size is normal. The interatrial septum is intact wit h no evidence for an atrial septal defect or patent foramen ovale as noted on 2-D or Doppler imaging. AORTIC VALVE The aortic valve is normal in structure and function. The aortic valve is trileaflet. Doppler and Col or Flow revealed no significant aortic regurgitation. There is no significant aortic valvular stenosi s. There is no aortic valvular vegetation. MITRAL VALVE The mitral valve is normal in structure and function. There is no evidence of mitral valve prolapse. There is no mitral valve stenosis. Doppler and Color Flow revealed no mitral valve regurgitation note d. TRICUSPID VALVE The tricuspid valve is normal in structure and function. Doppler and Color Flow revealed no tricuspid valve regurgitation noted. There is no tricuspid valve prolapse or vegetation. There is no tricuspid valve stenosis. PULMONIC VALVE The pulmonic valve is not well visualized. GREAT VESSELS The aortic root is normal in size. The ascending aorta is normal in size. The IVC is normal in size a nd collapses >50% with inspiration. PERICARDIAL EFFUSION There is no evidence of significant pericardial effusion. Critical Notification Critical Value: No <Conclusion> Left ventricle systolic function is normal. EF 55% There is normal LV segmental wall motion. Signed by : Bereket Jimenez, Electronically Approved : 10/18/2018 16:04:47
[2018-10-18 16:29] VITALS: BP 132/76
[2018-10-18] MEDS ORDERED: ATOR20TA PO (17:12)
[2018-10-18] MEDS ORDERED: PANT40TA3 PO (17:12)
--- NOTE | 2018-10-18 17:33 | HP ---
ADMIT DATE: 10/17/2018 HISTORY OF PRESENT ILLNESS: The patient is a 38-year-old male patient who came to the Emergency Room complaining of sudden onset of chest pain. The patient was sitting in his car when he began to get some mild shortness of breath followed by central stabbing chest pain increased in intensity over a few minutes. He also became diaphoretic at this time, he rates his pain about 7/10. He continues to have diaphoresis. He does not feel quite as short of breath. He is large individual, 6 feet 7 inches, 175 kilograms. He is also diabetic. He does not have personal cardiac history. Coronary artery disease does not run in his family. The patient had a stress test about 5 years ago that was reported to be negative. He denies any fever or chills. He was evaluated in the Emergency Room and has had an EKG, which showed he was in sinus rhythm with a heart rate of 81 with normal axis, no ST segment elevation or depression. His first set of cardiac enzyme was less than 0.017 and therefore, the patient was admitted to the hospital. We will consult the cardiology team and check his fasting lipid profile. PAST MEDICAL HISTORY: Significant for type 2 diabetes, morbid obesity, gastroesophageal reflux disease, depression, generalized osteoarthritis, peripheral neuropathy and obstructive sleep apnea, on CPAP. PAST SURGICAL HISTORY: Significant for bilateral shoulder surgery. FAMILY HISTORY: Heart disease in his father as well as stroke. SOCIAL HISTORY: He lives with his family. He does not smoke, drink alcohol or use any recreational drugs. ALLERGIES: He has no known drug allergies. MEDICATIONS: He is currently on following medications: Diphenhydramine 25 mg every 8 hours, promethazine 25 mg p.o. at bedtime and Soma 350 mg every 8 hours, propranolol 10 mg at bedtime, gabapentin 800 mg 3 times a day, lamotrigine 150 mg at bedtime, venlafaxine 150 mg at bedtime, Ambien 10 mg at bedtime, ondansetron 4 mg every 6 hours, testosterone 30 mg per 1.5 mL injected, Axiron 30 mg transdermal patch daily, metformin 1000 mg twice a day with meals. REVIEW OF SYSTEMS: As per history of present illness. PHYSICAL EXAMINATION: GENERAL: On arrival to the Emergency Room, he looked well and was clearly in no apparent respiratory distress. No pallor, jaundice, cyanosis or thyromegaly. No jugular venous distension. No limb edema. VITAL SIGNS: His heart rate was 88, blood pressure 149/87, temperature was 97.8, respiratory rate was 17 and oxygen saturation was 96% on room air. HEAD, EYES, EARS, NOSE AND THROAT: Showed normocephalic, atraumatic. NECK: Supple. HEART: Showed normal first and second sounds. No gallop, rub or murmur. CHEST: Clear to auscultation. No crepitation or rhonchi. ABDOMEN: Distended, soft, nontender. NEUROLOGIC: He was awake, alert, responding appropriately. All cranial nerves intact. EXTREMITIES: He moves extremities without difficulty, ambulates without assistance or assistive devices. LABORATORY DATA: Showed a white cell count of 6900, hemoglobin 14.9, hematocrit 45, MCV 91, and platelet count 250,000. His chemistry showed a serum sodium 141, potassium 4.9, chloride 103, bicarbonate 30, anion gap of 8, BUN 18, creatinine 1.3, estimated GFR was 61 mL per minute, glucose 138, calcium was 10. Total bilirubin, AST, ALT, alkaline phosphatase were normal. Total protein 7.6, albumin 3.9. His first set of cardiac enzymes showed troponin to be less than 0.017, has had a chest x-ray, which basically showed that the cardiac and mediastinal silhouettes are within normal limits in size and configuration. No acute pulmonary infiltrate is seen. No pleural effusion or pneumothorax is noted. The osseous structures are grossly intact. PLAN: Given that he has diabetes, patient was admitted to do 2 more sets of cardiac enzyme and we will check his fasting lipid profile, we will consult the cardiology team to evaluate and treat. MUNIR TORRES MD DR: SEGUN/elsa JOB#: [id number] / [id number]
--- NOTE | 2018-10-18 18:34 | NUR ---
NSG NOTE; DISCHARGE VERBAL AND WRITTEN DISCHARGE INSTRUCTIONS GIVEN TO PT WITH VERBAL UNDERSTANDING PT HAS APPT TOMORROW AT DR LEW'S OFFICE FOR FOLLOW UP RX X2 GIVEN TO PT DISCHARGE TO HOME AT 1834 VIA AMB ACCOMP BY
[2018-10-18] MEDS ORDERED: PROMETHAZINE 25 MG TABLET. PO SCH (21:00)
[2018-10-18] MEDS ORDERED: lamoTRIgine 100 MG TABLET. PO SCH (21:00)
--- NOTE | 2018-10-19 01:43 | DS ---
DATE OF DISCHARGE: 10/18/2018 HOSPITAL COURSE: The patient was admitted with chest pain and has had 3 sets of cardiac enzyme, all of them are less than 0.017. His EKG showed no evidence of ST segment elevation or depression. He was evaluated by the Cardiology team and has had an echocardiogram, which basically showed that his left ventricular systolic function is normal and ejection fraction was 55%. He has normal left ventricular segmental wall motion. The automatic presser recommended discharging him to be seen tomorrow at the office for a nuclear stress test. He did complain awareness of his pulsation, did feel that the blood is rushing into both side of his neck episodically and this has been apparently going on for months, but it increased recently over the last 2 weeks by his description and he is aware of his premature ventricular contraction. PHYSICAL EXAMINATION: GENERAL: When I examined him, he looked well and was clearly in no apparent respiratory distress. No pallor, jaundice, cyanosis, or thyromegaly. No jugular venous distension. No lower limb edema. VITAL SIGNS: His heart rate was 91, blood pressure was 132/76, temperature was 97.9, respiratory rate 20 and oxygen saturation was 93%. HEAD, EYES, EARS, NOSE AND THROAT: Showed normocephalic, atraumatic. NECK: Supple. HEART: Showed normal first and second heart sounds. No gallop, rub or murmur. CHEST: Showed central trachea, equal bilateral chest expansion, air entry, vesicular sounds. No crepitation or rhonchi. ABDOMEN: Distended, soft, nontender. NEUROLOGIC: He was awake, alert, responding appropriately. All cranial nerves are intact. He moves extremities without difficulty, ambulates without assistance or assistive devices. LABORATORY DATA: His fasting lipid profile showed serum triglycerides was 239, total cholesterol 151, LDL was 72, VLDL was 47 and HDL was 32 and the ratio was 4. DISCHARGE MEDICATIONS: The patient was discharged home to continue on following medications: Atorvastatin, calcium 20 mg at bedtime, Protonix 40 mg once a day, Soma 350 mg every 8 hours, diphenhydramine 25 mg every 8 hours, gabapentin 800 mg 3 times a day, lamotrigine 150 mg for migraine headache, metformin 1000 mg twice a day, ondansetron for Zofran 4 mg every 6 hours, promethazine 25 mg at bedtime, propranolol 10 mg at bedtime, testosterone 30 mg per 1.5 mL transdermal patch once a day, venlafaxine 150 mg once a day and Ambien 10 mg at bedtime. FINAL DISCHARGE DIAGNOSES: 1. Atypical chest pain, myocardial infarction was ruled out. 2. Gastroesophageal reflux disease for which he was started on Protonix. 3. Type 2 diabetes mellitus, on metformin. 4. Peripheral neuropathy. 5. Obstructive sleep apnea, on CPAP. 6. Morbid obesity. 7. Depression and anxiety. 8. Migraine headache for which he had received treatment with Imitrex. He is already on lamotrigine and propranolol. MUNIR TORRES MD DR: SEGUN/elsa JOB#: [id number] / [id number]
[2018-10-19] MEDS ORDERED: AMOX1TAB61 PO (14:15)
== END 2018-10-18 16:34 | disposition home or self-care (01) | DRG 313 ==
LOC: ER 16:52 → 1 SOUTH 18:00
PROVIDERS: ADMIT Internal Medicine; ATTEND Internal Medicine
DX: R07.89 Other chest pain (principal); Z68.41 Body mass index [BMI] 40.0-44.9, adult; E11.9 Type 2 diabetes mellitus without complications; E66.01 Morbid (severe) obesity due to excess calories; F32.9 Major depressive disorder, single episode, unspecified; F41.9 Anxiety disorder, unspecified; G43.909 Migraine, unspecified, not intractable, without status migrainosus; G47.33 Obstructive sleep apnea (adult) (pediatric); G62.9 Polyneuropathy, unspecified; K21.9 Gastro-esophageal reflux disease without esophagitis; K76.0 Fatty (change of) liver, not elsewhere classified; M15.9 Polyosteoarthritis, unspecified; Z82.3 Family history of stroke; Z82.49 Family history of ischemic heart disease and other diseases of the circulatory system; Z87.442 Personal history of urinary calculi; Z79.899 Other long term (current) drug therapy
CPT/HCPCS: 36415; 71046; 80053; 80061; 82947; 84484; 85025; 93005; 93306; J0456; J2270; J3030; Q0163; 99291-25; J7030

== ENCOUNTER 2018-10-19 11:57 | Emergency (ER) | payer BC ==
[~2018-10-19] VITALS: Ht 200.7 cm; Wt 175.4 kg
[~2018-10-19 11:57] MED LIST changes: +ATOR20TA PO; +CARI350T14 PO; +DIPH25CA58 PO; +GABA800T5 PO; +LAMO100T; +METF10007 PO; +ONDA4TAB7 PO; +PROM25TA10 PO; +PROP10TA PO; +VENL150C6; +ZOLP10TA4 PO
[2018-10-19] MEDS ORDERED: PANTOPRAZOLE IV 40 MG VIAL. IVP ONE (12:30)
[2018-10-19] MEDS ORDERED: IOHEXOL 300 MG/ML 75 ML VIAL. IV ONE (12:30)
[2018-10-19 12:34] LABS: BASO # 0.1 x10^3/uL (0.0-0.2); BASO % 1 % (0-3); EOS # 0.3 x10^3/uL (0.0-0.7); EOS % 4 % (0-3); HEMATOCRIT 46.9 % (39.0-53.0); HEMOGLOBIN 15.4 g/dL (13.0-17.5); LYMPH # 2.2 x10^3/uL (1.0-4.8); LYMPH % 26 % (24-48); MEAN CORPUSCULAR HEMOGLOBIN 30 pg (25-35); MEAN CORPUSCULAR HGB CONC 33 g/dL (31-37); MEAN CORPUSCULAR VOLUME 90 fL (79-100); MONO # 0.7 x10^3/uL (0.0-1.1); MONO % 8 % (0-9); NEUT # 5.1 x10^3uL (1.8-7.7); NEUT % 62 % (31-73); PLATELET COUNT 362 x10^3/uL (140-400); RED BLOOD COUNT 5.19 x10^6/uL (4.30-5.70); RED CELL DISTRIBUTION WIDTH 16.5 % (11.5-14.5); WHITE BLOOD COUNT 8.3 x10^3/uL (4.0-11.0)
[2018-10-19 12:52] LABS: CREATININE 1.3 mg/dL (0.7-1.3); GFR 61.1; TOTAL BILIRUBIN 0.4 mg/dL (0.2-1.0); TOTAL PROTEIN 8.2 g/dL (6.4-8.2)
--- NOTE | 2018-10-19 12:54 | PHYS DOC ---
Past History Past Medical History: Diabetes, GERD, High Cholesterol Past Surgical History: No Surgical History Smoking: Non-smoker Alcohol Use: None Drug Use: None Adult General Chief Complaint Chief Complaint: ABDOMINAL PAIN HPI HPI 38-year-old male returns to the emergency room with abdominal pain. He was re cently admitted for chest pain rule out it was negative. He was discharged on a GERD medication which she has not filled the prescription yet. Today, he presents with upper abdominal pain worse with eating. The patient also found a small stone looking object in his bowel movement. He googled it and found that it could be a gallstone. He is worried about his gallbladder being the cause of his pain. He has had some nausea, but denies vomiting. He has not had a fever. Review of Systems Review of Systems Constitutional: Denies fever or chills [] Eyes: Denies change in visual acuity, redness, or eye pain [] HENT: Denies nasal congestion or sore throat [] Respiratory: Denies cough or shortness of breath [] Cardiovascular: No additional information not addressed in HPI [] GI: Epigastric abdominal pain, nausea. Denies vomiting, bloody stools or diarrhea [] : Denies dysuria or hematuria [] Musculoskeletal: Denies back pain or joint pain [] Integument: Denies rash or skin lesions [] Neurologic: Denies headache, focal weakness or sensory changes [] Endocrine: Denies polyuria or polydipsia [] All other systems were reviewed and found to be within normal limits, except as documented in this note. Current Medications Current Medications Current Medications Medications (Trade) Dose Ordered Sig/[facility] Start Time Stop Time Status Last Admin Dose Admin Iohexol (Omnipaque 300 Mg/ml) 75 ml 1X ONCE 10/19/18 12:30 10/19/18 12:31 DC 10/19/18 12:32 75 ML Pantoprazole Sodium (Protonix Vial) 40 mg 1X ONCE 10/19/18 12:30 10/19/18 12:31 DC 10/19/18 12:38 40 MG Allergies Allergies Allergies Coded Allergies Type Severity Reaction Last Updated Verified No Known Drug Allergies 09/28/18 No Physical Exam Physical Exam Constitutional: Well developed, morbidly obese, well nourished, no acute distress, non-toxic appearance. [] HENT: Normocephalic, atraumatic, bilateral external ears normal, oropharynx moist, no oral exudates, nose normal. [] Eyes: PERRLA, EOMI, conjunctiva normal, no discharge. [] Neck: Normal range of motion, no tenderness, supple, no stridor. [] Cardiovascular:Heart rate regular rhythm, no murmur [] Lungs & Thorax: Bilateral breath sounds clear to auscultation [] Abdomen: Bowel sounds normal, soft, mild upper abdominal tenderness, no masses, no pulsatile masses. [] Skin: Warm, dry, no erythema, no rash. [] Back: No tenderness, no CVA tenderness. [] Extremities: No tenderness, no cyanosis, no clubbing, ROM intact, no edema. [] Neurologic: Alert and oriented X 3, normal motor function, normal sensory function, no focal deficits noted. [] Psychologic: Affect normal, judgement normal, mood normal. [] Current Patient Data Vital Signs Vital Signs Date Time Temp Pulse Resp B/P (MAP) Pulse Ox O2 Delivery O2 Flow Rate FiO2 10/19/18 12:06 97.9 80 17 98 Room Air Lab Results Laboratory Tests Test 10/19/18 12:22 White Blood Count 8.3 x10^3/uL (4.0-11.0) Red Blood Count 5.19 x10^6/uL (4.30-5.70) Hemoglobin 15.4 g/dL (13.0-17.5) Hematocrit 46.9 % (39.0-53.0) Mean Corpuscular Volume 90 fL (79-100) Mean Corpuscular Hemoglobin 30 pg (25-35) Mean Corpuscular Hemoglobin Concent 33 g/dL (31-37) Red Cell Distribution Width 16.5 % (11.5-14.5) H Platelet Count 362 x10^3/uL (140-400) Neutrophils (%) (Auto) 62 % (31-73) Lymphocytes (%) (Auto) 26 % (24-48) Monocytes (%) (Auto) 8 % (0-9) Eosinophils (%) (Auto) 4 % (0-3) H Basophils (%) (Auto) 1 % (0-3) Neutrophils # (Auto) 5.1 x10^3uL (1.8-7.7) Lymphocytes # (Auto) 2.2 x10^3/uL (1.0-4.8) Monocytes # (Auto) 0.7 x10^3/uL (0.0-1.1) Eosinophils # (Auto) 0.3 x10^3/uL (0.0-0.7) Basophils # (Auto) 0.1 x10^3/uL (0.0-0.2) EKG EKG [] Radiology/Procedures Radiology/Procedures [] Impressions: CT ABD PELV W/ IV CONTRST ONLY Indication: Abdominal pain Technique: Postcontrast CT imaging was performed of the abdomen pelvis, multiplanar reconstruction images submitted. No oral contrast was given. One or more of the following individualized dose reduction techniques were utilized for this examination: 1. Automated exposure control 2. Adjustment of the mA and/or kV according to patient size 3. Use of iterative reconstruction technique. Comparison: August 22, 2018; October 25, 2013 Findings: There is no abnormality of the limited visualized lung bases. There is again diffuse hepatic steatosis. There is no adrenal nodularity. Gallbladder is present without obvious intraluminal abnormality by CT. There are again some nonspecific nodes near the celiac axis and portacaval region, largest node about 1.2 cm short axis dimension although similar. Both kidneys enhance, no hydronephrosis. There is very mild hazy density of retroperitoneal fat near the pancreatic head and proximal body, no defined peripancreatic or pancreatic fluid collection. Accurate evaluation of bowel is limited without oral contrast. Bowel is not significantly dilated. There is no free fluid or free air. There could be a degree of mild wall thickening of the transverse duodenum and proximal jejunum. Normal caliber appendix is visualized without adjacent inflammatory-type change. There is mild degenerative disc disease and spondylosis L5-S1. There is facet degenerative change greater inferiorly of the lumbar spine. There is moderate to severe narrowing of the left L5-S1 neural foramen primarily from facet, likely mild narrowing on the right at L4-5 and L5-S1. IMPRESSION: 1. Hazy density of the peripancreatic fat near the head and proximal body continued be seen with early acute pancreatitis in the appropriate clinical setting. There is possible mild wall thickening of the transverse duodenum and proximal jejunum which could be seen with mild enteritis. There are nonspecific nodes of the superior abdomen although stable comparing with 2013 exam. 2. There is no evidence of acute appendicitis. 3. There is diffuse hepatic steatosis. Electronically signed by: Guy Ramirez MD (10/19/2018 12:51 PM) [id number] DICTATED AND SIGNED BY: GUY RAMIREZ MD DATE: 10/19/18 [id number] CC: SAHRA ZALDIVAR DO; TOY CABAN ~ Course & Med Decision Making Course & Med Decision Making Pertinent Labs and Imaging studies reviewed. (See chart for details) The patient's labs are unremarkable. His lipase is negative. His CT scan is suggestive of possible pancreatitis. No abscess is seen. There is also some swelling of the duodenum suggesting enteritis. I will treat the patient with Augmentin for 7 days. I will also advised that he eat a conservative diet. He is stable for discharge at this time. [] Dragon Disclaimer Dragon Disclaimer This electronic medical record was generated, in whole or in part, using a voice recognition dictation system. Departure Departure: Impression: Primary Impression: Epigastric abdominal pain Additional Impression: Enteritis Disposition: 01 HOME, SELF-CARE Condition: STABLE Referrals: TOY CABAN (PCP) Patient Instructions: Abdominal Pain, [id number] Problem Qualifiers SAHRA ZALDIVAR DO October 19, 2018 12:54
[2018-10-19] MEDS ORDERED: PROCHLORPERAZINE 10 MG/2 ML VIAL. IV ONE (13:15)
[2018-10-19 13:55] VITALS: BP 135/65
[2018-10-19] MEDS ORDERED: AMOX1TAB61 PO (14:15)
== END 2018-10-19 14:21 | disposition home or self-care (01) ==
LOC: ER 11:57
DX: K52.9 Noninfective gastroenteritis and colitis, unspecified (principal); E11.9 Type 2 diabetes mellitus without complications; K21.9 Gastro-esophageal reflux disease without esophagitis; E78.00 Pure hypercholesterolemia, unspecified; K76.0 Fatty (change of) liver, not elsewhere classified; K85.90 Acute pancreatitis without necrosis or infection, unspecified
CPT/HCPCS: 36415; 74177; 80053; 83690; 85025; 96374; 96375; 99285; C9113; J0780; Q9967

== ENCOUNTER 2019-01-05 10:04 | Inpatient (IN) | payer BC ==
[~2019-01-05] VITALS: Ht 200.7 cm; Wt 179.8 kg
[~2019-01-05 10:04] MED LIST changes: +AMOX1TAB61 PO
--- NOTE | 2019-01-05 10:37 | PHYS DOC ---
Past History Past Medical History: Diabetes, GERD, High Cholesterol Past Surgical History: No Surgical History Smoking: Non-smoker Alcohol Use: None Drug Use: None Adult General Chief Complaint Chief Complaint: WOUND CHECK HPI HPI Patient is a 38-year-old male presents with right foot wound and pain. Patient has diabetes and neuropathy and normally does not feel his feet. He had been undergoing care for right foot ulcer but stopped that therapy due to insurance issues. Yesterday was not having any pain. Today the wound has become significantly bigger and he is feeling pain in the area of this ulcer. Denies any fevers. He has not taken his blood sugar in a long time. He is on metformin for his diabetes, no insulin therapy. Pain is sharp in nature. No bleeding. No radiation of the discomfort. Nothing seems to make the discomfort better or worse.[] Review of Systems Review of Systems Constitutional: Denies fever or chills [] Eyes: Denies change in visual acuity, redness, or eye pain [] HENT: Denies nasal congestion or sore throat [] Respiratory: Denies cough or shortness of breath [] Cardiovascular: No chest pain or palpitations[] GI: Denies abdominal pain, nausea, vomiting, bloody stools or diarrhea [] : Denies dysuria or hematuria [] Musculoskeletal: Denies back pain or joint pain [] Integument: Denies rash, see history of present illness[] Neurologic: Denies headache, focal weakness or sensory changes [] Endocrine: Denies polyuria or polydipsia [] All other systems were reviewed and found to be within normal limits, except as documented in this note. Allergies Allergies Allergies Coded Allergies Type Severity Reaction Last Updated Verified No Known Drug Allergies 09/28/18 No Physical Exam Physical Exam Constitutional: Well developed, well nourished, no acute distress, non-toxic appearance. [] HENT: Normocephalic, atraumatic, bilateral external ears normal, oropharynx moist, no oral exudates, nose normal. [] Eyes: PERRLA, EOMI, conjunctiva normal, no discharge. [] Neck: Normal range of motion, no tenderness, supple, no stridor. [] Cardiovascular:Heart rate regular rhythm, no murmur [] Lungs & Thorax: Bilateral breath sounds clear to auscultation [] Abdomen: Bowel sounds normal, soft, no tenderness, no masses, no pulsatile masses. [] Skin: Warm, dry, lateral right foot, region of the distal fifth metatarsal, there is an ulcer on the plantar surface approximately 1 cm in diameter, moving towards the top of his foot there is an additional ulcer 7 mm x 1.5 cm with local erythema. There is no bleeding. Mild tenderness to palpation. There is no inguinal lymphadenopathy.. [] Back: No tenderness, no CVA tenderness. [] Extremities: See skin exam above for the right foot. The other 3 extremities show: No tenderness, no cyanosis, no clubbing, ROM intact, no edema. [] Neurologic: Alert and oriented X 3, normal motor function, normal sensory function, no focal deficits noted. [] Psychologic: Affect normal, judgement normal, mood normal. [] EKG EKG [] Radiology/Procedures Radiology/Procedures PROCEDURE: FOOT RIGHT 3V EXAM: AP, oblique and lateral views of the right foot DATE: 01/05/2019 10:29 AM INDICATION: Lateral foot wound, right foot pain COMPARISON: 08/28/2018 FINDINGS/ IMPRESSION: 1. Laceration/soft tissue irregularity is seen overlying the lateral aspect of the fifth metatarsal head and MTP joint consistent with clinically provided history of laceration. 2. A 2 mm radiopaque density projects over the lateral aspect of the proximal phalanx small toe, possibly retained foreign body or on the skin surface, new compared to prior radiograph 08/28/2018. 3. No evidence of acute fracture or dislocation. 4. Bipartite medial and lateral hallux MTP sesamoids.[] Course & Med Decision Making Course & Med Decision Making Pertinent Labs and Imaging studies reviewed. (See chart for details) ED course: Patient arrived, was placed in bed, in tolerated exam well. He was tr ansported to and from radiology with any complications. Initially oral fluids were administered in order to encourage the patient to urinate. With the elevated lactate as well as the elevated glucose, IV fluids were started. IV antibiotics were administered due to concern with this diabetic foot ulcer. Consultation was made with the hospitalist service for admission and they gracio usly accepted. Findings were discussed with patient and family who voiced understanding. All questions were answered. Medical decision making: Patient with what appears to be a diabetic foot ulcer and probable infection given the elevated CRP. Patient also with hyperglycemia however no evidence of diabetic ketoacidosis given that his bicarbonate is normal. Patient's lactate is slightly elevated. He is being given IV fluids as well as antibiotics to address these issues. He is being admitted for further evaluation and treatment. There is no evidence of sepsis given that he is afebrile and has a normal white count, normal heart rate.[] Dragon Disclaimer Dragon Disclaimer This electronic medical record was generated, in whole or in part, using a voice recognition dictation system. Departure Departure: Impression: Primary Impression: Diabetic foot ulcer Additional Impressions: Hyperglycemia Elevated lactic acid level Disposition: ADMITTED INPATIENT Admitting Physician: Renata Cordero Condition: IMPROVED Referrals: TOY CABAN (PCP) Problem Qualifiers Primary Impression: Diabetic foot ulcer Diabetic foot ulcer location: midfoot Diabetes mellitus type: type 2 Laterality: right Non-pressure ulcer stage: unspecified non-pressure ulcer stage Qualified Codes: E11.621 - Type 2 diabetes mellitus with foot ulcer; L97.419 - Non-pressure chronic ulcer of right heel and midfoot with unspeci fied severity ROSEY YOUSSEF DO Jan 05, 2019 10:37
[2019-01-05 10:55] LABS: BASO # 0.1 x10^3/uL (0.0-0.2); BASO % 1 % (0-3); EOS # 0.3 x10^3/uL (0.0-0.7); EOS % 4 % (0-3); HEMATOCRIT 48.5 % (39.0-53.0); HEMOGLOBIN 15.9 g/dL (13.0-17.5); LYMPH # 2.7 x10^3/uL (1.0-4.8); LYMPH % 33 % (24-48); MEAN CORPUSCULAR HEMOGLOBIN 29 pg (25-35); MEAN CORPUSCULAR HGB CONC 33 g/dL (31-37); MEAN CORPUSCULAR VOLUME 88 fL (79-100); MONO # 0.6 x10^3/uL (0.0-1.1); MONO % 7 % (0-9); NEUT # 4.5 x10^3uL (1.8-7.7); NEUT % 55 % (31-73); PLATELET COUNT 333 x10^3/uL (140-400); RED BLOOD COUNT 5.53 x10^6/uL (4.30-5.70); RED CELL DISTRIBUTION WIDTH 15.8 % (11.5-14.5); WHITE BLOOD COUNT 8.2 x10^3/uL (4.0-11.0)
[2019-01-05] MEDS ORDERED: ONDANSETRON ODT 4 MG TAB.RAPDIS PO ONE (11:00)
--- NOTE | 2019-01-05 11:02 | RAD ---
EXAM: AP, oblique and lateral views of the right foot DATE: 01/05/2019 10:29 AM INDICATION: Lateral foot wound, right foot pain COMPARISON: 08/28/2018 FINDINGS/ IMPRESSION: 1. Laceration/soft tissue irregularity is seen overlying the lateral aspect of the fifth metatarsal head and MTP joint consistent with clinically provided history of laceration. 2. A 2 mm radiopaque density projects over the lateral aspect of the proximal phalanx small toe, possibly retained foreign body or on the skin surface, new compared to prior radiograph 08/28/2018. 3. No evidence of acute fracture or dislocation. 4. Bipartite medial and lateral hallux MTP sesamoids. Electronically signed by: Reymundo Price MD (01/05/2019 10:59 AM) [facility]
[2019-01-05 11:06] LABS: ALBUMIN 3.5 g/dL (3.4-5.0); C REACTIVE PROTEIN 11.4 mg/L (0-3.3); CREATININE 1.4 mg/dL (0.7-1.3); GFR 56.1; TOTAL BILIRUBIN 0.4 mg/dL (0.2-1.0)
[2019-01-05 11:07] LABS: POTASSIUM 4.8 mmol/L (3.5-5.1)
[2019-01-05] MEDS ORDERED: IV NORMAL SALINE 1,000ML 1,000 ML IV ONE (11:30)
[2019-01-05] MEDS ORDERED: ONDANSETRON PF 4 MG/2 ML VIAL. IV ONE (11:45)
[2019-01-05] MEDS ORDERED: PIPERACILLIN/TAZOBACTAM 3.375 GM VIAL IV ONE ×2 (11:58→12:01)
[2019-01-05] MEDS ORDERED: IV NORMAL SALINE 50ML 50 ML ONE ×2 (11:58→12:00)
[2019-01-05] MEDS ORDERED: ONDANSETRON PF 4 MG/2 ML VIAL. IV PRN (12:00)
[2019-01-05] MEDS ORDERED: PIPERACILLIN/TAZOBACTAM 3.375 GM in IV NORMAL SALINE 50ML 50 ML IV ONE (12:00)
[2019-01-05] MEDS ORDERED: VANCOMYCIN PER PHARMACY MC ONE (12:00)
[2019-01-05] MEDS ORDERED: ACETAMINOPHEN 325 MG TABLET PO PRN (12:00)
[2019-01-05] MEDS ORDERED: PIP/TAZO PER PHARMACY MC ONE (12:00)
[2019-01-05 12:01] LABS: SEDIMENTATION RATE 2 (0-15)
[2019-01-05] MEDS ORDERED: VANCOMYCIN 2 GM in IV NORMAL SALINE 500ML 500 ML IV ONE (12:30)
[2019-01-05] MEDS: IV NORMAL SALINE 1,000ML 1,000 ML IV SCH ×2 (12:46→22:38)
[2019-01-05] MEDS ORDERED: DEXTROSE 50% 25 GM / 50ML DISP.SYRIN. IV PRN (13:30)
[2019-01-05 13:40] VITALS: BP 140/94
[2019-01-05] MEDS ORDERED: INSULIN LISPRO 300 UNITS/3 ML VIAL. SQ ONE (14:00)
[2019-01-05] MEDS ORDERED: ATOR20TA58 PO (14:10)
[2019-01-05] MEDS ORDERED: LAMO200T2 PO (14:15)
[2019-01-05] MEDS ORDERED: VENL37.57 PO (14:17)
[2019-01-05] MEDS ORDERED: ZOLP12.54 PO (14:21)
[2019-01-05] MEDS ORDERED: CHOL10003 PO (14:23)
[2019-01-05] MEDS ORDERED: CYAN-25 PO (14:24)
[2019-01-05] MEDS ORDERED: TIZA4TAB2 PO (14:26)
[2019-01-05] MEDS ORDERED: CLON0.1T PO (14:27)
[2019-01-05 14:34] LABS: BACTERIA,URINE 0 /HPF (0-FEW); BILIRUBIN,URINE NEG (NEG); CLARITY,URINE CLEAR; COLOR,URINE YELLOW; GLUCOSE,URINE >=1000 mg/dL (NEG); NITRITE,URINE NEG (NEG); RBC,URINE OCC /HPF (0-2); SQUAMOUS EPITHELIAL CELL,UR OCC /LPF; UROBILINOGEN,URINE 0.2 mg/dL (0.2 mg/dL); WBC,URINE OCC /HPF (0-4)
[2019-01-05] MEDS ORDERED: FLUT30CR TP (14:35)
[2019-01-05 14:47] VITALS: BP 110/72
[2019-01-05] MEDS ORDERED: FLUTICASONE 0.05% TP PRN (15:15)
[2019-01-05] MEDS ORDERED: CARISOPRODOL 350 MG TABLET PO PRN (15:15)
[2019-01-05] MEDS ORDERED: tiZANidine 4 MG TABLET. PO PRN (15:15)
[2019-01-05] MEDS ORDERED: diphenhydrAMINE HCL 25 MG CAPSULE PO PRN (15:15)
[2019-01-05] MEDS ORDERED: PIP/TAZO PER PHARMACY MC PRN (15:30)
[2019-01-05] MEDS ORDERED: ZOLPIDEM 5 MG TABLET. PO PRN (16:00)
[2019-01-05] MEDS: metFORMIN 500 MG TABLET PO SCH (17:04)
[2019-01-05] MEDS: HYDROcodone/APAP 5/325MG 1 TAB TABLET PO PRN ×2 (17:05→22:35)
[2019-01-05] MEDS: INSULIN LISPRO 300 UNITS/3 ML VIAL. SQ SCH (17:09)
[2019-01-05] MEDS: VANCOMYCIN PER PHARMACY MC PRN (17:31)
[2019-01-05] MEDS: PIPERACILLIN/TAZOBACTAM 3.375 GM in IV NORMAL SALINE 50ML 50 ML IV SCH ×2 (17:59→23:31)
[2019-01-05 18:37] VITALS: BP 134/75
[2019-01-05] MEDS: VANCOMYCIN 1.5 GM in IV NORMAL SALINE 500ML 500 ML IV SCH (20:56)
[2019-01-05] MEDS ORDERED: PROMETHAZINE 25 MG TABLET. PO SCH (21:00)
[2019-01-05 22:34] VITALS: BP 131/73
[2019-01-05] MEDS: LACTOBACILLUS RHAMNOSUS GG 1 CAPSULE. PO SCH (22:36)
[2019-01-05] MEDS: cloNIDine HCL 0.1 MG TABLET PO SCH (22:36)
[2019-01-05] MEDS: lamoTRIgine 100 MG TABLET. PO SCH (22:36)
[2019-01-05] MEDS: VENLAFAXINE 50 MG TABLET. PO SCH (22:37)
[2019-01-05] MEDS: ZOLPIDEM 5 MG TABLET. PO SCH (22:37)
[2019-01-05] MEDS: ATORVASTATIN CALCIUM 20 MG TABLET PO SCH (22:37)
[2019-01-05] MEDS: GABAPENTIN 400 MG CAPSULE. PO SCH (22:37)
[2019-01-05] MEDS: ENOXAPARIN 40 MG/0.4 ML SYRINGE. SQ SCH (22:38)
[2019-01-06] MEDS: VANCOMYCIN 1.5 GM in IV NORMAL SALINE 500ML 500 ML IV SCH ×3 (04:09→20:46)
[2019-01-06] MEDS: HYDROcodone/APAP 5/325MG 1 TAB TABLET PO PRN ×3 (04:11→17:49)
[2019-01-06] MEDS: PIPERACILLIN/TAZOBACTAM 3.375 GM in IV NORMAL SALINE 50ML 50 ML IV SCH ×3 (06:25→17:46)
[2019-01-06] MEDS: IV NORMAL SALINE 1,000ML 1,000 ML IV SCH (06:25)
[2019-01-06 06:31] VITALS: BP 125/81
[2019-01-06 06:43] LABS: BASO # 0.1 x10^3/uL (0.0-0.2); BASO % 1 % (0-3); EOS # 0.3 x10^3/uL (0.0-0.7); EOS % 4 % (0-3); HEMATOCRIT 47.4 % (39.0-53.0); HEMOGLOBIN 15.3 g/dL (13.0-17.5); LYMPH # 2.4 x10^3/uL (1.0-4.8); LYMPH % 32 % (24-48); MEAN CORPUSCULAR HEMOGLOBIN 28 pg (25-35); MEAN CORPUSCULAR HGB CONC 32 g/dL (31-37); MEAN CORPUSCULAR VOLUME 88 fL (79-100); MONO # 0.5 x10^3/uL (0.0-1.1); MONO % 7 % (0-9); NEUT # 4.2 x10^3uL (1.8-7.7); NEUT % 56 % (31-73); PLATELET COUNT 297 x10^3/uL (140-400); RED BLOOD COUNT 5.38 x10^6/uL (4.30-5.70); RED CELL DISTRIBUTION WIDTH 15.6 % (11.5-14.5); WHITE BLOOD COUNT 7.5 x10^3/uL (4.0-11.0)
[2019-01-06 06:56] LABS: CALCIUM 8.4 mg/dL (8.5-10.1); CREATININE 1.4 mg/dL (0.7-1.3); GFR 56.1; POTASSIUM 3.9 mmol/L (3.5-5.1)
[2019-01-06] MEDS: metFORMIN 500 MG TABLET PO SCH ×2 (07:51→16:54)
[2019-01-06] MEDS: INSULIN LISPRO 300 UNITS/3 ML VIAL. SQ SCH ×3 (07:57→16:56)
[2019-01-06] MEDS: CHOLECALCIFEROL (VITAMIN D3) 1,000 UNIT TABLET PO SCH (08:40)
[2019-01-06] MEDS: CYANOCOBALAMIN (VITAMIN B-12) 1,000 MCG TABLET. PO SCH (08:40)
[2019-01-06] MEDS: VENLAFAXINE XR 37.5 MG CAP.ER.24H. PO SCH (08:40)
[2019-01-06] MEDS: PANTOPRAZOLE 40 MG TABLET. PO SCH (08:40)
[2019-01-06] MEDS: LACTOBACILLUS RHAMNOSUS GG 1 CAPSULE. PO SCH ×2 (08:40→20:48)
[2019-01-06] MEDS: GABAPENTIN 400 MG CAPSULE. PO SCH ×4 (08:40→20:48)
[2019-01-06] MEDS: VENLAFAXINE 50 MG TABLET. PO SCH ×3 (08:41→21:11)
[2019-01-06] MEDS: ENOXAPARIN 40 MG/0.4 ML SYRINGE. SQ SCH ×2 (08:42→20:47)
[2019-01-06] MEDS ORDERED: PROMETHAZINE 25 MG TABLET. PO PRN (08:45)
[2019-01-06] MEDS: TESTOSTERONE 30 MG TD SCH (09:00)
[2019-01-06 10:29] VITALS: BP 123/74
--- NOTE | 2019-01-06 11:37 | HP ---
ADMIT DATE: 01/05/2019 HISTORY OF PRESENT ILLNESS: The patient is a 38-year-old male patient, who apparently came to the Emergency Room complaining of painful right foot wound. He has diabetes and neuropathy and normally he does not feel this is feet. He had been undergoing care for right foot ulcer at [facility], but stopped the therapy there due to insurance issues. Apparently, his pain was according to him has almost healed and when he changed the dressing, the wound seemed to become significantly bigger. There was large amount of drainage from the wound that is painful; however, he denied any fever. His blood sugar was also high. He has not taken his blood sugar for a long time. He is on metformin for his diabetes, he is not on any insulin. When he arrived to the Emergency Room, his right foot was swollen with marked erythema. The wound wraps around the outer aspect of his right foot, diffuse erythema, swelling of the dorsum of the right foot. He was started on IV antibiotic in the form of vancomycin and Zosyn. PAST MEDICAL HISTORY: Significant for type 2 diabetes, morbid obesity, obstructive sleep apnea, gastroesophageal reflux disease. He has peripheral neuropathy, Klinefelter syndrome. He also has psoriasis. PAST SURGICAL HISTORY: Significant for bilateral shoulder surgery, left shoulder tendon repair and right elbow tendon repair. FAMILY HISTORY: Positive for heart disease in his father as well as stroke. SOCIAL HISTORY: He is , does not smoke, drink alcohol or use any recreational drugs. He is currently unemployed and applying for disability. ALLERGIES: He has no known drug allergies. MEDICATIONS: He is currently on following medications: He is on diphenhydramine 25 mg every 8 hours as needed, promethazine 25 mg daily, Soma 350 mg every 8 hours, tizanidine from 8 mg every 8 hours as needed, atorvastatin calcium 20 mg at bedtime, clonidine 0.4 mg at bedtime, gabapentin 800 mg 4 times a day, lamotrigine 200 mg at bedtime, venlafaxine 150 mg at bedtime, Ambien 12.5 mg at bedtime, Protonix 40 mg once a day, testosterone 30 mg transdermal daily, metformin 1000 mg twice a day. He is on Flonase 2 sprays to each nostril twice a day, cyanocobalamin 1000 mcg tablet once a day, cholecalciferol, vitamin D3 1000 International Unit once a day. REVIEW OF SYSTEMS: As in history of present illness. PHYSICAL EXAMINATION: GENERAL: On arrival to the Emergency Room, he looked well and was clearly in no apparent respiratory distress. No pallor, jaundice, cyanosis or thyromegaly. No jugular venous distension. No lower limb edema. VITAL SIGNS: His heart rate was 81, blood pressure was 106/68, temperature was 98.3, respiratory rate was 18 and oxygen saturation was 96% on room air. HEENT: Showed normocephalic, atraumatic. NECK: Supple. HEART: Showed normal first and second heart sounds with no gallop, rub or murmur. CHEST: Clear to auscultation. No crepitation or rhonchi. ABDOMEN: Distended, soft, nontender. No guarding or rigidity. No organomegaly. All hernial orifice intact. Bowel sounds normal. NEUROLOGIC: He was awake, alert, responding appropriately. All cranial nerves intact. EXTREMITIES: He moves extremities without difficulty. He does have peripheral neuropathy in a stocking distribution in both sides. He has wound on the outer aspect of the right foot with erythema and swelling wrapping around the outer aspect of the left foot. LABORATORY DATA: On admission showed a white cell count of 8200, hemoglobin was 15.9, hematocrit 48, MCV 88 and platelet count of 333,000. His chemistry showed a serum sodium 138, potassium 4.8, chloride 102, bicarbonate 26, anion gap of 10, BUN 9, creatinine 1.4, estimated GFR was 56 mL per minute. His glucose was 309, lactic acid was 2.4, calcium was 9. Total bilirubin, AST, ALT were normal. Alkaline phosphatase slightly elevated. C-reactive protein was 11.4. Total protein was 7, albumin was 3.6. His urinalysis showed the urine was yellow, clear with a pH of 5.5, specific gravity of 1.015, the urine was negative for protein. There was large amount of glucose, negative for ketones, blood, nitrite, leukocyte esterase. There are no rbc's, no wbc's, and no bacteria. ASSESSMENT AND PLAN: In summary, this is a 38-year-old male patient who was admitted with diabetic foot ulcer with surrounding cellulitis. He has also poorly controlled type 2 diabetes and lactic acidosis. He is known to have diabetic peripheral neuropathy. Other issues include morbid obesity, obstructive sleep apnea, hyperlipidemia, gastroesophageal reflux disease, and Klinefelter syndrome. Plan is to continue with IV antibiotic in the form of vancomycin and Zosyn. Continue with all his other medications. We will start him on insulin sliding scale and consult the wound care team. X-ray of his right foot showed that patient has laceration, soft tissue irregularity seen overlying the lateral aspect of the fifth metatarsal head and metatarsophalangeal joint consistent with clinically provided history of laceration. He has a 2 mm radiopaque density, projects over the lateral aspect of the proximal phalanx small toe retained foreign body on the skin surface, new compared to prior radiographs. No evidence of acute fracture or dislocation tight medial and lateral hallux sesamoid. MUNIR TORRES MD DR: SEGUN/elsa JOB#: [id number] / [id number]
[2019-01-06] MEDS: NEOMY/BACITR/POLYMYXIN OINT PACKET. TP SCH ×2 (11:43→20:48)
[2019-01-06 12:43] LABS: VANC TR 17.8 mcg/mL (10.0-20.0)
--- NOTE | 2019-01-06 15:56 | PN ---
DATE: 01/06/2019 SUBJECTIVE: The patient is resting slightly propped up in bed, in no apparent distress. He continued to complain of pain in his right foot which is red and swollen. His x-ray showed no evidence of fracture or dislocation. OBJECTIVE: GENERAL: On examining him, he looked well and was clearly in no apparent respiratory distress. No pallor, jaundice, cyanosis, or thyromegaly. No jugular venous distension. No limb edema. VITAL SIGNS: His heart rate was 72, blood pressure 134/75, temperature was 97.5, respiratory rate was 20, and oxygen saturation was 96% on room air. HEAD, EYES, EARS, NOSE AND THROAT: Showed normocephalic, atraumatic. NECK: Supple. HEART: Showed normal first and second heart sounds. No gallop, rub or murmur. CHEST: Clear to auscultation. No crepitation or rhonchi. ABDOMEN: Distended, soft, nontender. No guarding or rigidity. No organomegaly. All hernial orifice intact. Bowel sounds normal. NEUROLOGIC: He is awake, alert, responding appropriately. All cranial nerves are intact. EXTREMITIES: He moves extremities without difficulty. He has diabetic foot ulcer with surrounding cellulitis and no obvious osteomyelitis on this x-ray. PLAN: To arrange for him to have a bone scan tomorrow. We will check his hemoglobin A1c and lipid panel tomorrow also, and if there is any evidence of osteomyelitis he probably needs to be transferred to [facility]. We will consult the wound care team to evaluate and debride his wounds tomorrow. MUNIR TORRES MD DR: SEGUN/elsa JOB#: [id number] / [id number]
[2019-01-06 16:05] VITALS: BP 118/68
[2019-01-06 19:20] VITALS: BP 138/59
[2019-01-06] MEDS: lamoTRIgine 100 MG TABLET. PO SCH (20:48)
[2019-01-06] MEDS: ZOLPIDEM 5 MG TABLET. PO SCH (20:48)
[2019-01-06] MEDS: cloNIDine HCL 0.1 MG TABLET PO SCH (21:09)
[2019-01-06 23:30] VITALS: BP 137/84
[2019-01-07] MEDS: PIPERACILLIN/TAZOBACTAM 3.375 GM in IV NORMAL SALINE 50ML 50 ML IV SCH ×4 (00:01→17:34)
[2019-01-07] MEDS: ATORVASTATIN CALCIUM 20 MG TABLET PO SCH ×2 (00:01→20:31)
[2019-01-07] MEDS: HYDROcodone/APAP 5/325MG 1 TAB TABLET PO PRN ×4 (00:06→22:05)
[2019-01-07] MEDS: VANCOMYCIN 1.5 GM in IV NORMAL SALINE 500ML 500 ML IV SCH ×3 (05:34→20:30)
[2019-01-07 06:40] VITALS: BP 119/75
[2019-01-07 07:28] LABS: CALCIUM 8.6 mg/dL (8.5-10.1); CREATININE 1.5 mg/dL (0.7-1.3); GFR 51.8; POTASSIUM 4.1 mmol/L (3.5-5.1)
[2019-01-07] MEDS: INSULIN LISPRO 300 UNITS/3 ML VIAL. SQ SCH ×3 (08:00→17:36)
[2019-01-07] MEDS: VENLAFAXINE XR 37.5 MG CAP.ER.24H. PO SCH (08:01)
[2019-01-07] MEDS: metFORMIN 500 MG TABLET PO SCH ×2 (08:01→17:37)
[2019-01-07] MEDS: PANTOPRAZOLE 40 MG TABLET. PO SCH (08:01)
[2019-01-07] MEDS: GABAPENTIN 400 MG CAPSULE. PO SCH ×4 (08:02→20:31)
[2019-01-07] MEDS: LACTOBACILLUS RHAMNOSUS GG 1 CAPSULE. PO SCH ×2 (08:02→20:31)
[2019-01-07] MEDS: VENLAFAXINE 50 MG TABLET. PO SCH ×3 (08:02→20:30)
[2019-01-07] MEDS: CYANOCOBALAMIN (VITAMIN B-12) 1,000 MCG TABLET. PO SCH (08:02)
[2019-01-07] MEDS: CHOLECALCIFEROL (VITAMIN D3) 1,000 UNIT TABLET PO SCH (08:02)
[2019-01-07] MEDS: TESTOSTERONE 30 MG TD SCH (08:04)
[2019-01-07] MEDS: ENOXAPARIN 40 MG/0.4 ML SYRINGE. SQ SCH ×2 (08:04→20:34)
[2019-01-07] MEDS: NEOMY/BACITR/POLYMYXIN OINT PACKET. TP SCH ×2 (08:04→20:32)
[2019-01-07 10:50] VITALS: BP 135/77
[2019-01-07 14:20] VITALS: BP 133/85
[2019-01-07 19:10] VITALS: BP 152/73
[2019-01-07] MEDS: ZOLPIDEM 5 MG TABLET. PO SCH (20:31)
[2019-01-07] MEDS: cloNIDine HCL 0.1 MG TABLET PO SCH (20:31)
[2019-01-07] MEDS: lamoTRIgine 100 MG TABLET. PO SCH (20:31)
[2019-01-07 23:25] VITALS: BP 160/98
[2019-01-08] MEDS: PIPERACILLIN/TAZOBACTAM 3.375 GM in IV NORMAL SALINE 50ML 50 ML IV SCH ×4 (00:13→19:25)
--- NOTE | 2019-01-08 03:25 | PN ---
DATE: 01/07/2019 SUBJECTIVE: The patient is resting, slightly propped up in bed and is in no apparent respiratory distress. He has more pain in his left arm, where the IV line ____ and the right leg. He did have his bone scan done, the result of which is still pending at the time of this dictation. PHYSICAL EXAMINATION: GENERAL: When I examined him, he looked well and was clearly in no apparent respiratory distress. No pallor, jaundice, cyanosis or thyromegaly. No jugular venous distention. No limb edema. VITAL SIGNS: His heart rate was 75, blood pressure was 133/85, temperature was 98.2, respiratory rate 20, and oxygen saturation was 93%. The rest of clinical exam is stable. The wound on his right foot was cleaned and covered with dressing by the Wound Care team. His intake was 2350, output was 500. LABORATORY DATA: His lab work showed his blood sugar is slightly better controlled. His white cell count was 7500, hemoglobin 15, hematocrit 47, MCV 88 and platelet count 297,000. His chemistry showed a BUN of 7, creatinine 1.5. ASSESSMENT: 1. Diabetic foot ulcer, surrounding cellulitis, with no obvious osteomyelitis on his x-ray, although the bone scan was done, the results were still pending. 2. Other medical problems include type 2 diabetes mellitus, diabetic peripheral neuropathy, morbid obesity, obstructive sleep apnea, gastroesophageal reflux disease, and Klinefelter syndrome. He also has psoriasis. MUNIR TORRES MD DR: SEGUN/elsa JOB#: [id number] / [id number]
[2019-01-08] MEDS: VANCOMYCIN 1.5 GM in IV NORMAL SALINE 500ML 500 ML IV SCH ×3 (04:18→13:21)
[2019-01-08 05:39] VITALS: BP 138/73
[2019-01-08 06:50] LABS: CALCIUM 8.8 mg/dL (8.5-10.1); CREATININE 1.4 mg/dL (0.7-1.3); GFR 56.1; POTASSIUM 4.1 mmol/L (3.5-5.1)
[2019-01-08] MEDS: INSULIN LISPRO 300 UNITS/3 ML VIAL. SQ SCH ×3 (07:54→17:23)
--- NOTE | 2019-01-08 08:18 | RAD ---
BONE SCAN 3 PHASE Clinical Indication: Diabetic right foot ulcer. Plantar and lateral surface. Black drainage. Comparison: Right foot radiographs January 05, 2019 and August 28, 2018. TECHNIQUE: Patient is injected with 25.4 mCi of technetium 99m MDP. Plantar angiographic phase images of the feet acquired. Plantar blood pool image. After routine delay, multiplanar static images of the feet and ankles. Findings: Angiographic phase images demonstrate relative hyperemia of the right foot compared to the left with increased blood flow localizing to the lateral distal metatarsal region. This increased uptake remains on the immediate static (blood pool) image. On delay images there is focal increased tracer uptake localizing to the head of the right fifth metatarsal. There is relatively symmetric periarticular tracer uptake of the right and left foot. There is also increased periarticular tracer uptake of the bilateral ankles. IMPRESSION: 1. There is increased tracer uptake on the angiographic and immediate static images localizing to the lateral distal metatarsal region of the right foot. On delay image there is focal increased tracer uptake localizing to the head of the right fifth metatarsal. There is a soft tissue defect near this location on recent radiographs. Early osteomyelitis cannot be excluded. 2. On delay images the right and left foot demonstrate increased periarticular tracer uptake raising possibility of complex regional pain syndrome. Electronically signed by: Martin Rodriguez MD (01/08/2019 8:15 AM) [id number]
[2019-01-08] MEDS: TESTOSTERONE 30 MG TD SCH (09:00)
[2019-01-08] MEDS: VENLAFAXINE 50 MG TABLET. PO SCH ×3 (09:08→21:00)
[2019-01-08] MEDS: HYDROcodone/APAP 5/325MG 1 TAB TABLET PO PRN ×2 (09:09→17:21)
[2019-01-08] MEDS: ENOXAPARIN 40 MG/0.4 ML SYRINGE. SQ SCH ×2 (09:09→20:43)
[2019-01-08] MEDS: NEOMY/BACITR/POLYMYXIN OINT PACKET. TP SCH ×2 (09:10→20:46)
[2019-01-08] MEDS: CYANOCOBALAMIN (VITAMIN B-12) 1,000 MCG TABLET. PO SCH (09:10)
[2019-01-08] MEDS: VENLAFAXINE XR 37.5 MG CAP.ER.24H. PO SCH (09:10)
[2019-01-08] MEDS: GABAPENTIN 400 MG CAPSULE. PO SCH ×4 (09:11→20:43)
[2019-01-08] MEDS: PANTOPRAZOLE 40 MG TABLET. PO SCH (09:11)
[2019-01-08] MEDS: CHOLECALCIFEROL (VITAMIN D3) 1,000 UNIT TABLET PO SCH (09:11)
[2019-01-08] MEDS: LACTOBACILLUS RHAMNOSUS GG 1 CAPSULE. PO SCH ×2 (09:11→20:43)
[2019-01-08] MEDS: metFORMIN 500 MG TABLET PO SCH ×2 (09:11→17:21)
[2019-01-08 11:00] VITALS: BP 123/74
[2019-01-08 13:04] LABS: VANC TR 25.5 mcg/mL (10.0-20.0)
[2019-01-08 15:09] VITALS: BP 119/69
[2019-01-08] MEDS: VANCOMYCIN PER PHARMACY MC PRN (15:14)
--- NOTE | 2019-01-08 15:56 | DS ---
DATE OF DISCHARGE: HOSPITAL COURSE: The patient is a 38-year-old male patient who presented to the Emergency Room with a wound on his outer aspect of his right foot. He has been doing wound care for his right foot ulcer at [facility], but stopped therapy due to insurance issues. Apparently his wound according to him has almost healed. He changed the dressing. Wound seems to become significantly bigger. There was large amount of drainage from the wound that is painful; however, he denied any fever. His blood sugar was extremely high. He has not taken his blood sugar for a long time. He is on metformin for his diabetes, but he is not on any insulin. He was found to have markedly swollen, erythematous right foot with a wound wrapping around the outer aspect of his right foot, diffuse erythema and swelling including the dorsum of his right foot. We did start him on IV antibiotic in the form of vancomycin and Zosyn, has had an x-ray of his right foot which basically showed that he has laceration and soft tissue irregularity seen overlying the lateral aspect of the fifth metatarsal head and metatarsophalangeal joint consistent with clinically proven history of laceration. He has no evidence of acute fracture or dislocation. We did actually a bone scan, which basically showed increased tracer uptake in the angiographic and immediate static images localizing to the lateral distal metatarsal region of the right foot. On delayed imaging, there is focal increased tracer uptake localizing to the head of the right fifth metatarsal. There is a soft tissue defect near dislocation on recent radiographs. Ileus or osteomyelitis cannot be excluded. Delayed images, the right and left foot demonstrates increased periarticular tracer uptake raising the possibility of complex regional pain syndrome. Given that he has possible osteomyelitis, he probably needs an MRI and Infectious Disease consult and he would require debridement and therefore a decision was made to transfer him to [facility]. I did contact the hospitalist who kindly accepted the patient and he will be transferred there to continue with IV antibiotic. PHYSICAL EXAMINATION: GENERAL: When I saw him this afternoon, he was resting slightly propped up in bed on his BiPAP machine sleeping comfortably. On questioning him, he denied any complaint. When I examined him, he looked well and was clearly in no apparent respiratory distress. No pallor, jaundice or cyanosis. No lymphadenopathy, no thyromegaly. No jugular venous distention. No limb edema. VITAL SIGNS: His heart rate was 64, blood pressure 119/69, temperature was 97.5, respiratory rate 20, and oxygen saturation was 92%. HEAD, EYES, EARS, NOSE AND THROAT: Showed normocephalic, atraumatic. NECK: Supple. HEART: Showed normal first and second heart sounds. No gallop, rub or murmur. CHEST: Clear to auscultation. No crepitation or rhonchi. ABDOMEN: Distended, soft, nontender. No guarding or rigidity. No organomegaly. All hernial orifice intact. Bowel sounds normal. NEUROLOGIC: He was sleepy, but arousable. All cranial nerves are intact. He moves extremities without difficulty. EXTREMITIES: The wound in his right foot is covered with dressing. His intake over the last 24 hours was 1700, no output was recorded. LABORATORY DATA: His most recent lab work showed a white cell count 7500, hemoglobin 15, hematocrit 47, MCV 88 and platelet count 297,000. His chemistry this morning showed a serum sodium 141, potassium 4.1, chloride 106, bicarbonate 26, anion gap of 9, BUN 7, creatinine 1.4, estimated GFR was 56 mL per minute, his glucose 129, calcium was 8.8. DISCHARGE MEDICATIONS: He was discharged to [facility] to continue on vancomycin 1.5 g IV q.12 hourly. He is on triple antibiotic applied topically twice a day, hydrocodone/APAP 5/325 three tablets every 4 hours. He is on testosterone 30 mg transdermal daily, venlafaxine 37.5 mg daily, Protonix 40 mg once a day, cyanocobalamin 5000 mcg daily, vitamin D 1000 international unit once a day, promethazine 25 mg p.o. daily p.r.n. for nausea and vomiting, lactobacillus rhamnosus 1 capsule twice a day, Lovenox 40 mg subcutaneous q.12 hourly, Ambien 5 mg at bedtime, venlafaxine 50 mg 3 times a day, lamotrigine 200 mg at bedtime, gabapentin 800 mg 4 times a day and clonidine 0.2 mg at bedtime. He is on atorvastatin 20 mg at bedtime, piperacillin, tazobactam 3.375 grams IV q.6 hourly, metformin 1000 mg twice a day, Humalog insulin has been using sliding scale 3 times a day with meals, Ambien 5 mg at bedtime as needed, Soma 350 mg every 8 hours. FINAL DISCHARGE DIAGNOSES: 1. Diabetic foot ulcer with right foot osteomyelitis. 2. Type 2 diabetes mellitus. 3. Morbid obesity, obstructive sleep apnea. 4. Gastroesophageal reflux disease. 5. Peripheral neuropathy. 6. Klinefelter syndrome. 7. Psoriasis. MUNIR TORRES MD DR: SEGUN/elsa JOB#: [id number] / [id number]
[2019-01-08 19:20] VITALS: BP 143/83
[2019-01-08 20:43] VITALS: BP 119/69
[2019-01-08] MEDS: lamoTRIgine 100 MG TABLET. PO SCH (20:43)
[2019-01-08] MEDS: cloNIDine HCL 0.1 MG TABLET PO SCH (20:43)
[2019-01-08] MEDS: ATORVASTATIN CALCIUM 20 MG TABLET PO SCH (20:43)
[2019-01-08] MEDS ORDERED: VANCOMYCIN 1.5 GM in IV NORMAL SALINE 500ML 500 ML IV SCH (21:00)
[2019-01-08] MEDS: ZOLPIDEM 5 MG TABLET. PO SCH (21:00)
== END 2019-01-08 21:30 | disposition short-term general hospital (02) | DRG 638 ==
LOC: ER 10:04 → ICU 11:54 → 1 SOUTH 01-06 20:56
PROVIDERS: ADMIT Internal Medicine; ATTEND Internal Medicine
DX: E11.69 Type 2 diabetes mellitus with other specified complication (principal); L03.90 Cellulitis, unspecified; E87.2 Acidosis; M86.8X7 Other osteomyelitis, ankle and foot; E11.621 Type 2 diabetes mellitus with foot ulcer; E66.01 Morbid (severe) obesity due to excess calories; K21.9 Gastro-esophageal reflux disease without esophagitis; E11.42 Type 2 diabetes mellitus with diabetic polyneuropathy; E11.65 Type 2 diabetes mellitus with hyperglycemia; E78.00 Pure hypercholesterolemia, unspecified; E78.5 Hyperlipidemia, unspecified; G47.33 Obstructive sleep apnea (adult) (pediatric); L40.9 Psoriasis, unspecified; L97.519 Non-pressure chronic ulcer of other part of right foot with unspecified severity; Q98.4 Klinefelter syndrome, unspecified; Z82.3 Family history of stroke; Z82.49 Family history of ischemic heart disease and other diseases of the circulatory system; Z79.4 Long term (current) use of insulin
CPT/HCPCS: 36415; 73630; 78315; 80048; 80053; 80061; 80202; 81001; 82947; 83036; 83605; 85025; 85651; 86140; 87040; 87070; 87641; 96365; 96375; A9503; J1650; J1815; J2405; J2543; J3370; J7040; Q0162; Q0163; 99285-25; J7030

== ENCOUNTER 2019-07-24 03:34 | Emergency (ER) | payer BC, OTHER ==
[~2019-07-24] VITALS: Ht 200.7 cm; Wt 169.4 kg
[~2019-07-24 03:34] MED LIST changes: +ATOR20TA58 PO; +CHOL10003 PO; +CLON0.1T PO; +CYAN-25 PO; +FLUT30CR2 TP; -LAMO100T; +LAMO100T8; +LAMO200T6 PO; +TIZA4TAB2 PO; +VENL37.57 PO; +ZOLP12.54 PO
[2019-07-24 04:05] LABS: BASO % 0 % (0-3); EOS # 0.2 x10^3/uL (0.0-0.7); EOS % 2 % (0-3); HEMATOCRIT 50.2 % (39.0-53.0); HEMOGLOBIN 16.2 g/dL (13.0-17.5); LYMPH # 3.2 x10^3/uL (1.0-4.8); LYMPH % 31 % (24-48); MEAN CORPUSCULAR HEMOGLOBIN 28 pg (25-35); MEAN CORPUSCULAR HGB CONC 32 g/dL (31-37); MEAN CORPUSCULAR VOLUME 86 fL (79-100); MONO # 0.5 x10^3/uL (0.0-1.1); MONO % 5 % (0-9); NEUT # 6.3 x10^3uL (1.8-7.7); NEUT % 61 % (31-73); PLATELET COUNT 290 x10^3/uL (140-400); RED BLOOD COUNT 5.83 x10^6/uL (4.30-5.70); RED CELL DISTRIBUTION WIDTH 15.6 % (11.5-14.5); WHITE BLOOD COUNT 10.3 x10^3/uL (4.0-11.0)
[2019-07-24 04:06] LABS: CALCIUM 8.6 mg/dL (8.5-10.1); CREATININE 1.4 mg/dL (0.7-1.3); GFR 56.1
[2019-07-24 04:11] LABS: ALBUMIN 3.3 g/dL (3.4-5.0); ALBUMIN/GLOBULIN RATIO 0.8 (1.0-1.7); TOTAL BILIRUBIN 0.1 mg/dL (0.2-1.0); TOTAL PROTEIN 7.3 g/dL (6.4-8.2)
[2019-07-24 04:27] LABS: INFLUENZA A PATIENT NEGATIVE (NEGATIVE); INFLUENZA B PATIENT NEGATIVE (NEGATIVE)
[2019-07-24] MEDS ORDERED: IV NORMAL SALINE 1,000ML 1,000 ML IV ONE (04:30)
--- NOTE | 2019-07-24 04:30 | PHYS DOC ---
Past History Past Medical History: Anxiety, Depression, Diabetes, GERD, High Cholesterol, Pancreatitis, Other Additional Past Medical Histor: testosterone deficiency, neuropathy Past Surgical History: Other Additional Past Surgical Histo: repair tendon left shoulder, tendon right elbow Smoking: Non-smoker Alcohol Use: Rarely Drug Use: None Adult General Chief Complaint Chief Complaint: SHORTNESS OF BREATH [facility] 38-year-old male presents with shortness of breath and dizziness that started about 90 minutes prior to arrival. The patient was sleeping and he woke up and had to cough. He coughed up some sputum and began to feel lightheaded. He waited a little while to see if his symptoms would improve. He also took some Tums feeling like he had some acid reflux. This has not helped. He coughed up some more sputum and continued to feel like he was not getting enough air when he took a breath. He decided to come in for evaluation. Patient has no history of lung disease. He is not a smoker but his spouse is. He denies chest pain or diaphoresis. No known sick contacts. He denies fever or chills. Review of Systems Review of Systems Constitutional: Denies fever or chills [] Eyes: Denies change in visual acuity, redness, or eye pain [] HENT: Denies nasal congestion or sore throat [] Respiratory: Cough with shortness of breath [] Cardiovascular: No additional information not addressed in HPI [] GI: Denies abdominal pain, nausea, vomiting, bloody stools or diarrhea [] : Denies dysuria or hematuria [] Musculoskeletal: Denies back pain or joint pain [] Integument: Denies rash or skin lesions [] Neurologic: Dizziness. Denies headache, focal weakness or sensory changes [] Endocrine: Denies polyuria or polydipsia [] All other systems were reviewed and found to be within normal limits, except as documented in this note. Allergies Allergies Allergies Coded Allergies Type Severity Reaction Last Updated Verified No Known Drug Allergies 09/28/18 No Physical Exam Physical Exam Constitutional: Well developed, morbidly obese, well nourished, no acute distress, non-toxic appearance. [] HENT: Normocephalic, atraumatic, bilateral external ears normal, oropharynx moist, no oral exudates, nose normal. [] Eyes: PERRLA, EOMI, conjunctiva normal, no discharge. [] Neck: Normal range of motion, no tenderness, supple, no stridor. [] Cardiovascular: Heart rate 102, regular rhythm, no murmur [] Lungs & Thorax: Bilateral breath sounds clear to auscultation [] Abdomen: Bowel sounds normal, soft, no tenderness, no masses, no pulsatile masses. [] Skin: Warm, dry, no erythema, no rash. [] Back: No tenderness, no CVA tenderness. [] Extremities: No tenderness, no cyanosis, no clubbing, ROM intact, no edema. [] Neurologic: Alert and oriented X 3, normal motor function, normal sensory function, no focal deficits noted. [] Psychologic: Affect normal, judgement normal, mood normal. [] Current Patient Data Vital Signs Vital Signs Date Time Temp Pulse Resp B/P (MAP) Pulse Ox O2 Delivery O2 Flow Rate FiO2 07/24/19 03:34 97.8 100 20 149/94 (112) 93 Room Air Lab Results Laboratory Tests Test 07/24/19 03:40 White Blood Count 10.3 x10^3/uL (4.0-11.0) Red Blood Count 5.83 x10^6/uL (4.30-5.70) H Hemoglobin 16.2 g/dL (13.0-17.5) Hematocrit 50.2 % (39.0-53.0) Mean Corpuscular Volume 86 fL (79-100) Mean Corpuscular Hemoglobin 28 pg (25-35) Mean Corpuscular Hemoglobin Concent 32 g/dL (31-37) Red Cell Distribution Width 15.6 % (11.5-14.5) H Platelet Count 290 x10^3/uL (140-400) Neutrophils (%) (Auto) 61 % (31-73) Lymphocytes (%) (Auto) 31 % (24-48) Monocytes (%) (Auto) 5 % (0-9) Eosinophils (%) (Auto) 2 % (0-3) Basophils (%) (Auto) 0 % (0-3) Neutrophils # (Auto) 6.3 x10^3uL (1.8-7.7) Lymphocytes # (Auto) 3.2 x10^3/uL (1.0-4.8) Monocytes # (Auto) 0.5 x10^3/uL (0.0-1.1) Eosinophils # (Auto) 0.2 x10^3/uL (0.0-0.7) Basophils # (Auto) 0.0 x10^3/uL (0.0-0.2) Sodium Level 141 mmol/L (136-145) Potassium Level 4.0 mmol/L (3.5-5.1) Chloride Level 104 mmol/L (98-107) Carbon Dioxide Level 26 mmol/L (21-32) Anion Gap 11 (6-14) Blood Urea Nitrogen 13 mg/dL (8-26) Creatinine 1.4 mg/dL (0.7-1.3) H Estimated GFR (Cockcroft-Gault) 56.1 BUN/Creatinine Ratio 9 (6-20) Glucose Level 282 mg/dL (70-99) H Calcium Level 8.6 mg/dL (8.5-10.1) Total Bilirubin 0.1 mg/dL (0.2-1.0) L Aspartate Amino Transferase (AST) 26 U/L (15-37) Alanine Aminotransferase (ALT) 78 U/L (16-63) H Alkaline Phosphatase 174 U/L (46-116) H Total Protein 7.3 g/dL (6.4-8.2) Albumin 3.3 g/dL (3.4-5.0) L Albumin/Globulin Ratio 0.8 (1.0-1.7) L EKG EKG Sinus tachycardia, rate 102, normal axis, no ST elevations or depressions.[] Radiology/Procedures Radiology/Procedures [] Impressions: CHEST AP ONLY History: Chest pain Comparison: October 17, 2018 Findings: No consolidation or pleural effusion. Normal heart size. No pneumothorax. Impression: 1. No acute cardiopulmonary process. Electronically signed by: Corin Day DO (07/24/2019 4:28 AM) [id number] DICTATED AND SIGNED BY: CORIN DAY DO DATE: 07/24/19 0428 CC: SAHRA ZALDIVAR DO; PCP,UNKNOWN ~ Course & Med Decision Making Course & Med Decision Making Pertinent Labs and Imaging studies reviewed. (See chart for details) The patient's chest x-ray is negative for acute process. His labs significant for creatinine 1.4. Review of his chart shows this is his baseline. He does not have an elevated white count. Has some slight elevation of his liver enzymes. His blood sugar is 282 with a normal anion gap. We will give him a liter of normal saline. His EKG is unremarkable except for slight tachycardia at rate 102. After fluids, his heart rate has improved. He is feeling a bit better at this time. His symptoms could be related to his elevated blood sugar but he also may have a viral illness. He will talk with his primary care physician about adding medication for his elevated blood sugar. He is stable for discharge at this time. [] Dragon Disclaimer Dragon Disclaimer This electronic medical record was generated, in whole or in part, using a voice recognition dictation system. Departure Departure: Impression: Primary Impression: Poorly controlled type 2 diabetes mellitus Additional Impressions: Shortness of breath Dizziness Disposition: HOME, SELF-CARE Condition: IMPROVED Referrals: PCP,UNKNOWN (PCP) Patient Instructions: Dizziness, [id number], Hyperglycemia, [id number] Problem Qualifiers SAHRA ZALDIVAR DO Jul 24, 2019 04:30
[2019-07-24] MEDS ORDERED: MECLIZINE 12.5 MG TABLET. PO ONE (05:00)
[2019-07-24] MEDS ORDERED: LIDO:MAALOX 1:1 20 ML SINGLE DOSE. PO ONE (05:00)
[2019-07-24 05:59] VITALS: BP 115/75
--- NOTE | 2019-07-24 06:19 | EKG ---
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
== END 2019-07-24 06:04 | disposition home or self-care (01) ==
LOC: ER 03:34
DX: E11.65 Type 2 diabetes mellitus with hyperglycemia (principal); R06.02 Shortness of breath; R42 Dizziness and giddiness; K21.9 Gastro-esophageal reflux disease without esophagitis; E78.00 Pure hypercholesterolemia, unspecified
CPT/HCPCS: 36415; 71045; 80053; 82947; 84484; 85025; 87804; 93005; 96360; 99285; J8597; J7030

== ENCOUNTER 2019-12-06 13:02 | Emergency (ER) | payer OTHER ==
[~2019-12-06] VITALS: Ht 200.7 cm; Wt 172.1 kg
[~2019-12-06 13:02] MED LIST changes: -ZOLP12.54 PO; +ZOLP12.56 PO
[2019-12-06 13:16] VITALS: BP 193/88
[2019-12-06] MEDS ORDERED: CLIN300C8 PO (13:49)
--- NOTE | 2019-12-06 13:50 | PHYS DOC ---
Past History Past Medical History: Anxiety, Depression, Diabetes, GERD, High Cholesterol, Pancreatitis, Other Additional Past Medical Histor: testosterone deficiency, neuropathy Past Surgical History: Other Additional Past Surgical Histo: repair tendon left shoulder, tendon right elb ow. nerve both shoulders. Smoking: Non-smoker Alcohol Use: Rarely Drug Use: None General Adult EDM: Chief Complaint: FOOT INJURY PAIN HPI: HPI: Patient is a 39-year-old morbidly obese diabetic who presents with a wound on his left great toe. He states is been ongoing for several days. He denies any pain to the area however he does have neuropathy. He denies any redness around the wound. He has not seen a wound clinic in the past. [] Review of Systems: Review of Systems: Constitutional: Denies fever or chills Eyes: Denies change in visual acuity HENT: Denies nasal congestion or sore throat Respiratory: Denies cough or shortness of breath Cardiovascular: Denies chest pain or edema GI: Denies abdominal pain, nausea, vomiting, bloody stools or diarrhea : Denies dysuria Musculoskeletal: Wound left great toe Integument: Denies rash Neurologic: Denies headache, focal weakness or sensory changes Endocrine: Denies polyuria or polydipsia Lymphatic: Denies swollen glands Psychiatric: Denies depression or anxiety Heart Score: Risk Factors: Risk Factors: DM, Current or recent (<one month) smoker, HTN, HLP, family history of CAD, obesity. Risk Scores: Score 0 - 3: 2.5% MACE over next 6 weeks - Discharge Home Score 4 - 6: 20.3% MACE over next 6 weeks - Admit for Clinical Observation Score 7 - 10: 72.7% MACE over next 6 weeks - Early Invasive Strategies Allergies: Allergies: Allergies Coded Allergies Type Severity Reaction Last Updated Verified No Known Drug Allergies 09/28/18 No Physical Exam: PE: Constitutional: Well developed, well nourished, no acute distress, non-toxic appearance. [] HENT: Normocephalic, atraumatic, bilateral external ears normal, oropharynx moist, no oral exudates, nose normal. [] Eyes: PERRLA, EOMI, conjunctiva normal, no discharge. [] Neck: Normal range of motion, no tenderness, supple, no stridor. [] Cardiovascular:Heart rate regular rhythm, no murmur [] Lungs & Thorax: Bilateral breath sounds clear to auscultation [] Abdomen: Bowel sounds normal, soft, no tenderness, no masses, no pulsatile masses. [] Skin: Dime size area necrotic tissue left great toe no surrounding erythema no obvious abscess [] Back: No tenderness, no CVA tenderness. [] Extremities: No tenderness, no cyanosis, no clubbing, ROM intact, no edema. [] Neurologic: Alert and oriented X 3, normal motor function, normal sensory function, no focal deficits noted. [] Psychologic: Affect normal, judgement normal, mood normal. [] Current Patient Data: Vital Signs: Vital Signs Date Time Temp Pulse Resp B/P (MAP) Pulse Ox O2 Delivery O2 Flow Rate FiO2 12/06/19 13:16 98.1 93 16 193/88 (123) 96 Room Air EKG: EKG: [] Radiology/Procedures: Radiology/Procedures: [] Course & Med Decision Making: Course & Med Decision Making Pertinent Labs and Imaging studies reviewed. (See chart for details) [] Dragon Disclaimer: Dragon Disclaimer: This electronic medical record was generated, in whole or in part, using a voice recognition dictation system. Departure Departure: Impression: Primary Impression: Diabetic infection of left foot Disposition: HOME/RESIDENCE PRIOR TO ADM Condition: STABLE Referrals: [facility] (PCP) Patient Instructions: Wound Infection Additional Instructions: It is imperative that you follow with a wound clinic within the next few days. We have provided you with a handout that has the phone number to call to make an appointment. Scripts Clindamycin Hcl (CLINDAMYCIN HCL) 300 Mg Capsule 1 CAP PO TID for infection, #30 CAP Prov: QUIANA RAE DO 12/06/19 Justification of Admission: Justification of Admission: Justification of Admission Dx: No QUIANA RAE DO Dec 06, 2019 13:50
[2019-12-06] MEDS ORDERED: CLINDAMYCIN HCL 150 MG CAPSULE PO ONE (14:00)
== END 2019-12-06 13:58 | disposition home or self-care (01) ==
LOC: ER 13:02
DX: S90.932A Unspecified superficial injury of left great toe, initial encounter (principal); L08.89 Other specified local infections of the skin and subcutaneous tissue; K21.9 Gastro-esophageal reflux disease without esophagitis; E78.00 Pure hypercholesterolemia, unspecified; E11.40 Type 2 diabetes mellitus with diabetic neuropathy, unspecified; X58.XXXA Exposure to other specified factors, initial encounter; Y93.9 Activity, unspecified; Y92.89 Other specified places as the place of occurrence of the external cause; Y99.8 Other external cause status
CPT/HCPCS: 99283

== ENCOUNTER 2019-12-20 18:33 | Emergency (ER) | payer OTHER ==
[~2019-12-20] VITALS: Ht 200.7 cm; Wt 175.0 kg
[2019-12-20 18:33] VITALS: BP 131/71
[~2019-12-20 18:33] MED LIST changes: +CLIN300C8 PO
--- NOTE | 2019-12-20 18:47 | PHYS DOC ---
Past History Past Medical History: Anxiety, Depression, Diabetes, GERD, High Cholesterol, Pancreatitis, Other Additional Past Medical Histor: testosterone deficiency, neuropathy Past Surgical History: Other Additional Past Surgical Histo: repair tendon left shoulder, tendon right elb ow. nerve both shoulders Smoking: Non-smoker Alcohol Use: Rarely Drug Use: None General Adult EDM: Chief Complaint: Multiple complaints HPI: HPI: 39-year-old male presents with multiple complaints including chills, shortness of breath, fatigue, headache, nausea, diarrhea, and body aches. Reports is been ongoing for the past 3 days. Patient reports concern for possible COVID-19. Denies known exposure. Review of Systems: Review of Systems: Constitutional: Reports subjective fever and chills Eyes: Denies redness or eye pain HENT: Denies nasal congestion or sore throat Respiratory: Reports cough and shortness of breath Cardiovascular: Denies chest pain or palpitations GI: Denies abdominal pain; reports nausea and diarrhea : Denies dysuria or hematuria Musculoskeletal: Denies back pain or joint pain Integument: Denies rash or skin lesions Neurologic: Reports headache; denies focal weakness or sensory changes Complete systems were reviewed and found to be within normal limits, except as documented in this note. Allergies: Allergies: Allergies Coded Allergies Type Severity Reaction Last Updated Verified No Known Drug Allergies 09/28/18 No Physical Exam: PE: Constitutional: Well developed, obese, no acute distress, non-toxic appearance HENT: Normocephalic, atraumatic Eyes: Conjunctiva normal, no discharge Neck: Normal range of motion, no tenderness, supple, no meningeal signs Lungs & Thorax: No respiratory distress, equal chest rise and fall Abdomen: Soft, no tenderness, no guarding/rebound tenderness/distention Skin: Warm, dry, no erythema, no rash Extremities: No tenderness, ROM intact, no edema Neurologic: Alert and oriented X 3, no focal deficits noted Psychologic: Affect normal, judgment normal EKG: EKG: [] Radiology/Procedures: Radiology/Procedures: [] Course & Med Decision Making: Course & Med Decision Making Patient appears in no distress. Reports 3 to 4-day history of multiple compl aints which are concerning for possible COVID-19. Patient reports he wants to be tested. Vital signs stable. Patient is currently afebrile and O2 sats 98% on room air. COVID precautions utilized. COVID testing pending. Patient stable for discharge with outpatient follow-up with PCP. Discussed findings and plan with patient, who acknowledges understanding and agreement. COVID-19 CRITERIA: The patient was evaluated during the global COVID-19 pandemic, and that diagnosis was suspected/considered upon their initial presentation. Their evaluation, treatment and testing was consistent with current guidelines for patients who present with complaints or symptoms that may be related to COVID-19. Dragon Disclaimer: Drageneida Disclaimer: This electronic medical record was generated, in whole or in part, using a voice recognition dictation system. Departure Departure: Impression: Primary Impression: Suspected 2019 novel coronavirus infection Disposition: HOME/RESIDENCE PRIOR TO ADM Condition: STABLE Referrals: TOY CABAN (PCP) Patient Instructions: Viral Syndrome Additional Instructions: You have been tested for or diagnosed with COVID-19. It is an infection caused by a new type of coronavirus. COVID-19 will cause cold-like or mild flu symptoms in most. It can cause more severe symptoms like problems breathing in some. There is no treatment for COVID-19. The body will clear the infection over time. Self-care will help to ease discomfort. Steps to Take: Self-Care Rest as needed. Healthy habits may help you feel better. Steps include: Choose healthy foods including fruits and vegetables. Drink water throughout the day. Get plenty of sleep each night. If you smoke, try to quit. It may ease breathing. Avoid alcohol. Keep Others Healthy The virus can spread to others. Droplets are released every time you sneeze or cough. The droplets can get into the mouth, nose, or eyes of people near you and lead to in fection. To lower the chances of spreading COVID-19 to others: Stay at home until your doctor has said it is safe to leave. If you tested positive this will mean staying isolated until both of the following are true: At least 7 days have passed since the start of illness. You are free of fever for at least 72 hours without the use of medicine. During this time: - Avoid public areas, events, or transportation. Do not return to work or school until your doctor has said it is safe to do so. - Call ahead if you need to go to a medical center. Let them know you may have COVID-19. It will help them guide you where to go. They may also ask you to wear a facemask when you come to the office. - If you call for emergency medical services, let them know you may have COVID- 19. While at home: - Try to avoid close contact with others. Stay about 6 feet away. - If possible, spend most of your time in a separate room from others. - Use a face mask if you will be in close contact with others such as sharing a room or vehicle. - Have someone wipe down common surfaces in the home. Use household pharmaceutical laboratory technician every day on areas like doorknobs, counters, or sinks. - Cough or sneeze into a tissue. Throw the tissue away right after use. If a tissue is not available, cough or sneeze into your elbow. - Wash your hands often. Wash them after sneezing or coughing. Use soap and water and wash for at least 20 seconds. Alcohol based hand machinery cleaner can be used if soap and water is not available. - Do not prepare food for others. Avoid sharing personal items like forks, spoons, or toothbrushes. - Avoid close contact with pets while you are sick. There is no evidence of the virus passing to pets. This is a safety step until more is known about this virus. Isolation can be frustrating. Social interaction can help. Keep in touch with friends and family through phone and tech options. You can still interact with others in your home, just keep a safe distance of about 6 feet. Follow-up: Your doctors office will check in with you to see if there are any changes in your health. You may be asked to keep track of symptoms to share with them. They will also let you know when you are clear to be in public again. Problems to Look Out For: Contact your doctor if your recovery is not going as you expect. Get emergency care if you have problems such as: - Trouble breathing - Nonstop chest pain or pressure - Changes in awareness, confusion, or problems waking - Lips or face have bluish color - Worsening of symptoms If you think you have an emergency, call for emergency medical services right away. As taken from [facility] Justification of Admission: Justification of Admission: Justification of Admission Dx: N/A COVID-19 Assessment COVID-19 Patient Risks: Age 65 or older: No Sign of co-morbidity: Yes Exp to person + for COVID: No Exp to PUI: No Travel from affected area: No Lower respiratory symptoms: Yes Fever: Yes Other: Yes PPE Use: Full PPE with N95 mask or PAPR: Yes DULCE NOYOLA DO Dec 20, 2019 18:47
--- NOTE | 2019-12-25 11:13 | NUR ---
IP: patient notified of COVID result, complained of soreness and drainage from nasal swab, recommeded he call PCP.
== END 2019-12-20 19:00 | disposition home or self-care (01) ==
LOC: ER 18:33
DX: R51 Headache (principal); R06.02 Shortness of breath; R53.83 Other fatigue; R19.7 Diarrhea, unspecified; Z20.828 Contact with and (suspected) exposure to other viral communicable diseases; F41.9 Anxiety disorder, unspecified; F32.9 Major depressive disorder, single episode, unspecified; K21.9 Gastro-esophageal reflux disease without esophagitis; E78.00 Pure hypercholesterolemia, unspecified; E11.40 Type 2 diabetes mellitus with diabetic neuropathy, unspecified
CPT/HCPCS: 36415; 99283; U0003

== ENCOUNTER 2019-12-26 05:10 | Emergency (ER) | payer OTHER ==
[~2019-12-26] VITALS: Ht 200.7 cm; Wt 175.0 kg
[2019-12-26 05:10] VITALS: BP 142/93
--- NOTE | 2019-12-26 05:18 | PHYS DOC ---
Past History Past Medical History: Diabetes, GERD, High Cholesterol Additional Past Medical Histor: testosterone deficiency, neuropathy Past Medical History Peripheral neuropathy, peripheral vascular disease Past Surgical History: Other Additional Past Surgical Histo: repair tendon left shoulder, tendon right elbow. nerve both shoulders Smoking: Non-smoker Alcohol Use: Rarely Drug Use: None General Adult HPI: HPI: ".. I just had the cast put on at 2 pm yesterday.. It's too tight... My leg is hurting....they put in on to treat my diabetic ulcer .. on toes..." Patient is a 39 year old male who presents with above hx and complaints cast causing pain in his Rt. leg. Pt. cast was applied yesterday at the wound care center at . Patient has long history of diabetes, peripheral vascular disease and peripheral neuropathy. Patient has been keeping leg elevated. Has been using walker boot. Patient denies any fever chills. Patient denies any recent travel outside [facility]. Patient denies any history of immunosuppression. Patient has past medical history of type 2 diabetes, morbid obesity, obstructive sleep apnea, GERD, Klinefelter syndrome, psoriasis, and arthritic pain. Patient does not smoke or use alcohol. Denies illicit drug use. The patient normally follows with [facility]. Review of Systems: Review of Systems: Constitutional: Denies fever or chills Eyes: Denies change in visual acuity HENT: Denies nasal congestion or sore throat Respiratory: Denies cough or shortness of breath Cardiovascular: Denies chest pain or edema GI: Denies abdominal pain, nausea, vomiting, bloody stools or diarrhea : Denies dysuria Musculoskeletal: Denies back pain or joint pain. Except for complaints of right leg pain from cast pressure Integument: Denies rash Neurologic: Denies headache, focal weakness or sensory changes Endocrine: Denies polyuria or polydipsia Lymphatic: Denies swollen glands Psychiatric: Denies depression or anxiety Heart Score: Risk Factors: Risk Factors: DM, Current or recent (<one month) smoker, HTN, HLP, family history of CAD, obesity. Risk Scores: Score 0 - 3: 2.5% MACE over next 6 weeks - Discharge Home Score 4 - 6: 20.3% MACE over next 6 weeks - Admit for Clinical Observation Score 7 - 10: 72.7% MACE over next 6 weeks - Early Invasive Strategies Family History: Family History: Noncontributory to presentation-father has had a stroke Current Medications: Current Meds: See nursing for home meds Allergies: Allergies: Allergies Coded Allergies Type Severity Reaction Last Updated Verified No Known Drug Allergies 12/20/19 No Physical Exam: PE: Constitutional: Moderate acute distress, non-toxic appearance. [] HENT: Normocephalic, atraumatic, bilateral external ears normal, oropharynx moist, no oral exudates, nose normal. [] Eyes: PERRLA, EOMI, conjunctiva normal, no discharge. [] Neck: Normal range of motion, no tenderness, supple, no stridor. [] Cardiovascular:Heart rate regular rhythm, no murmur [] Lungs & Thorax: Bilateral breath sounds equal at apex auscultation [] Abdomen: Bowel sounds normal, soft, no tenderness, no masses, no pulsatile masses. Obese Skin: Warm, dry, no erythema, psoriasis noted in the flexor areas. Right first toe ulcer Back: No tenderness, no CVA tenderness. [] Extremities: No tenderness, no cyanosis, no clubbing, ROM intact, no edema. [] Except findings of right leg tenderness-once cast removed did note he had a ulcer on first toe plantar area. Scars on shoulders and scar right elbow Neurologic: Alert and oriented X 3, moves all extremities on request, does have decreased plantar sensation, no focal deficits noted. [] Psychologic: Affect anxious, judgement normal, mood normal. [] EKG: EKG: [] Radiology/Procedures: Radiology/Procedures: [] Course & Med Decision Making: Course & Med Decision Making Pertinent Labs and Imaging studies reviewed. (See chart for details) Wound care cast removed with cast saw. Patient follow-up with wound care clinic. Patient to apply the antibiotic ointment as previous directed in wound care. Return if any concerns. Follow-up primary care. Impression: 1. Right wound care cast causing pain 2. History of diabetes 3. History of peripheral vascular disease 4. History of peripheral neuropathy [] Dragon Disclaimer: Dragon Disclaimer: This electronic medical record was generated, in whole or in part, using a voice recognition dictation system. Departure Departure: Disposition: 01 HOME/RESIDENCE PRIOR TO ADM Condition: STABLE Referrals: TOY CABAN (PCP) Justification of Admission: Justification of Admission: Justification of Admission Dx: N/A Dragon Disclaimer This chart was dictated in whole or in part using Voice Recognition software in a busy, high-work load, and often noisy Emergency Department environment. It may contain unintended and wholly unrecognized errors or omissions. NGOC PETERS MD Dec 26, 2019 05:18
== END 2019-12-26 06:10 | disposition home or self-care (01) ==
LOC: ER 05:10
DX: Z46.89 Encounter for fitting and adjustment of other specified devices (principal); M79.604 Pain in right leg; E11.9 Type 2 diabetes mellitus without complications; I73.9 Peripheral vascular disease, unspecified; E11.42 Type 2 diabetes mellitus with diabetic polyneuropathy; K21.9 Gastro-esophageal reflux disease without esophagitis; E78.00 Pure hypercholesterolemia, unspecified
CPT/HCPCS: 99282

== ENCOUNTER → 2020-06-01 | Outpatient (CLI) | payer OTHER ==
[~2020-06-01] MED LIST changes: -CLIN300C8 PO; +CLIN300C9 PO; +HYDR-2155 PO
--- NOTE | 2020-06-02 11:08 | RAD ---
EXAMINATION: CT ABDOMEN+PELVIS WO (CT ABDOMEN/PELVIS WITHOUT IV CONTRAST) CLINICAL HISTORY: HEMATURIA AND BILATERAL FLANK PAIN FOR 2 WEEKS HX OF STONES TECHNIQUE: Non-IV contrast imaging of the abdomen and pelvis was performed using standard technique, scanning from just above the dome of the diaphragm to the symphysis pubis. Unenhanced imaging is alan ited for the evaluation of some intra-abdominal and pelvic pathology. CT Dose Reduction Employed: One or more of the following individualized dose reduction techniques wer e utilized for this examination: 1. Automated exposure control 2. Adjustment of the mA and/or kV ac cording to patient size 3. Use of iterative reconstruction technique. COMPARISON: 10/19/2018 FINDINGS: Partially visualized heart and lung bases unremarkable. Mild hepatosplenomegaly, mildly progressed from prior study. Hepatic steatosis, asymmetrically promin ent in the right hepatic lobe. Nondistended gallbladder, pancreas, and adrenal glands unremarkable. Tiny nonobstructive calculus in the midpole the left kidney. No additional urinary calculi visualized . Right kidney unremarkable. No evidence of cystic or solid renal mass on limited evaluation of the u nenhanced kidneys. Mildly filled urinary bladder. No dilated bowel. Normal air-filled appendix. No abdominal aortic or iliac artery aneurysm. No significant lymphadenopathy. Partially visualized pr ominent bilateral inguinal lymph nodes, nonspecific but may be reactive. Multilevel thoracolumbar degenerative changes. IMPRESSION: No evidence of acute abdominopelvic abnormality. Tiny nonobstructive left renal calculus. No additional calculi or evidence of obstructive uropathy. Mild hepatosplenomegaly with hepatic steatosis. Electronically signed by: Palomo Preston DO (06/02/2020 11:06 AM) [id number]
== END ==
LOC: CT 12:36
PROVIDERS: ATTEND Physician Assistant
DX: N20.0 Calculus of kidney (principal); K76.0 Fatty (change of) liver, not elsewhere classified; R16.2 Hepatomegaly with splenomegaly, not elsewhere classified; M47.815 Spondylosis without myelopathy or radiculopathy, thoracolumbar region; R31.9 Hematuria, unspecified
CPT/HCPCS: 74176

== ENCOUNTER 2020-06-05 06:48 | Emergency (ER) | payer OTHER ==
[~2020-06-05] VITALS: Ht 200.7 cm; Wt 172.0 kg
[~2020-06-05 06:48] MED LIST changes: -HYDR-2155 PO
[2020-06-05 07:50] VITALS: BP 128/102
[2020-06-05] MEDS ORDERED: DIPH,PERTUSS(ACELL),TET VAC/PF 0.5 ML SYRINGE. VAX IM ONE (08:15)
--- NOTE | 2020-06-05 08:17 | PHYS DOC ---
Past History Past Medical History: Diabetes Additional Past Medical Histor: testosterone deficiency, neuropathy Past Surgical History: Other Additional Past Surgical Histo: ortho Smoking: Non-smoker Alcohol Use: None Drug Use: None General Adult EDM: Chief Complaint: HAND PROBLEM HPI: HPI: This is a pleasant 39-year-old male presenting to the emergency department today after punching a wall with his right hand. He adamantly denies punching a person. This is not a fight bite. He has pain in his hand is throbbing aching moderate. It is in the hand and wrist. 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 He denies any other injuries. He denies pain in the shoulder or elbow. Review of systems is negative for chest pain shortness of breath headache head injury. All other review of system negative. ED course: 39-year-old male presented emergency department today after punching a wall. X-rays obtained. X-rays unremarkable. We will discharge patient to follow-up with PCP. He can use a wrist splint as needed for pain along with ibuprofen. Allergies: Allergies: Allergies Coded Allergies Type Severity Reaction Last Updated Verified No Known Drug Allergies 12/20/19 No Physical Exam: PE: Constitutional: Well developed, well nourished, no acute distress, non-toxic appearance. HENT: Normocephalic, atraumatic, bilateral external ears normal, oropharynx moist, no oral exudates, nose normal. Eyes: PERRLA, EOMI, conjunctiva normal, no discharge. [] Neck: Normal range of motion, no tenderness, supple, no stridor. Cardiovascular:Heart rate regular rhythm, no murmur [] Lungs & Thorax: Bilateral breath sounds clear to auscultation [] Abdomen: Bowel sounds normal, soft, no tenderness, no masses, no pulsatile masses. Skin: Warm, dry, no erythema, no rash. Back: No tenderness, no CVA tenderness. [] Extremities: The patient's right upper extremity has a chronic tendon cyst overlying his dorsum of his hand. There is an abrasion to the dorsal metacarpal phalangeal joint region of the third phalanx. He is tender in the metacarpal region. He is also tender in the distal portion of his wrist. Nontender in the elbow. Nontender at the head of the radius. Nontender shoulder. No other injuries to the extremities. Normal motor and sensory function of the hand. 2-second cap refill with palpable radial pulse. Neurologic: Alert and oriented X 3, normal motor function, normal sensory function, no focal deficits noted. [] Psychologic: Affect normal, judgement normal, mood normal. [] Current Patient Data: Vital Signs: Vital Signs Date Time Temp Pulse Resp B/P (MAP) Pulse Ox O2 Delivery O2 Flow Rate FiO2 06/05/20 07:50 98.3 95 18 128/102 (111) 99 Room Air EKG: EKG: [] Radiology/Procedures: Radiology/Procedures: [] Heart Score: Risk Factors: Risk Factors: DM, Current or recent (<one month) smoker, HTN, HLP, family history of CAD, obesity. Risk Scores: Score 0 - 3: 2.5% MACE over next 6 weeks - Discharge Home Score 4 - 6: 20.3% MACE over next 6 weeks - Admit for Clinical Observation Score 7 - 10: 72.7% MACE over next 6 weeks - Early Invasive Strategies Course & Med Decision Making: Course & Med Decision Making Pertinent Labs and Imaging studies reviewed. (See chart for details) [] Dragon Disclaimer: Dragon Disclaimer: This electronic medical record was generated, in whole or in part, using a voice recognition dictation system. Departure Departure: Impression: Primary Impression: Hand injury Disposition: 01 DC HOME SELF CARE/HOMELESS Condition: STABLE Referrals: TOMEKA LEWIS (PCP) Patient Instructions: Hand Injuries Scripts Hydrocodone Bit/Acetaminophen (HYDROCODONE-APAP 5-325 ) 1 Each Tablet 1 TAB PO PRN Q6HRS PRN for PAIN for 5 Days, #8 TAB 0 Refills Caution: this medication can make you drowsy. Do not drive or operate heavy machinery when using this medication. Prov: ADRIANNE JONES MD 06/05/20 DARIANNE JONES MD Jun 05, 2020 08:17
--- NOTE | 2020-06-05 08:23 | RAD ---
PROCEDURE: XR HAND_RIGHT 3 VIEWS, XR RT WRIST 3VIEWS STUDY DATE: 06/05/2020 CLINICAL INDICATION / HISTORY: Reason: PUNCHED A WALL, HAND AND WRIST PAIN / Spl. Instructions: / Hi story: . TECHNIQUE: PA, lateral and oblique views of the right hand. COMPARISON: None FINDINGS: No fracture or dislocation is identified. The bone density is normal. The joint spaces are maintained, and there are no erosions to suggest an inflammatory arthropathy. The soft tissues are un remarkable. IMPRESSION: No acute osseous abnormality. PROCEDURE: XR HAND_RIGHT 3 VIEWS, XR RT WRIST 3VIEWS STUDY DATE: 06/05/2020 CLINICAL INDICATION / HISTORY: Reason: PUNCHED A WALL, HAND AND WRIST PAIN / Spl. Instructions: / Hi story: . TECHNIQUE: Right wrist 3 views. AP, lateral, oblique views. COMPARISON: None FINDINGS: The radiocarpal and intracarpal relationships are maintained. There is no fracture or dislo cation. The bone density is normal. No soft tissue abnormality is seen. IMPRESSION: No acute osseous abnormality. Electronically signed by: Kwaku Lowery MD (06/05/2020 8:20 AM) [id number]
[2020-06-05] MEDS ORDERED: HYDR-2155 PO (09:14)
== END 2020-06-05 09:18 | disposition home or self-care (01) ==
LOC: ER 06:48
DX: S60.511A Abrasion of right hand, initial encounter (principal); E11.40 Type 2 diabetes mellitus with diabetic neuropathy, unspecified; W22.01XA Walked into wall, initial encounter; Y93.89 Activity, other specified; Y92.89 Other specified places as the place of occurrence of the external cause; Y99.8 Other external cause status
CPT/HCPCS: 29125; 73110; 73130; 90471; 90715; 99284

== ENCOUNTER → 2020-10-12 | Outpatient (CLI) | payer OTHER ==
[~2020-10-12] MED LIST changes: +EMPA25TA PO; +HYDR-2155 PO; +INSU100I27 SQ; +INSU100I53 SQ; +KETO15CR2 TP; +LAMO300T2 PO; +METF750T39 PO; +NABU500T11 PO; +OMEP40CA45 PO; +ONDA8TAB15 PO; +QUET50TA5 PO; +TRAZ150T49 PO
--- NOTE | 2020-10-12 12:29 | RAD ---
2 views left foot without comparison for foot pain. FINDINGS: There are contractures involving the interphalangeal joints. No definite fracture or acute osseous abnormality is seen in any distribution. Calcaneal bone spur and calcaneal enthesophytes are noted. Minimal midfoot osteoarthritis. IMPRESSION: 1. No acute osseous abnormalities. Electronically signed by: Fede Castrejon MD (10/12/2020 12:26 PM) [id number]
== END ==
LOC: PMG 09:33
PROVIDERS: ATTEND Physician Assistant
DX: M19.072 Primary osteoarthritis, left ankle and foot (principal); M77.32 Calcaneal spur, left foot; M24.575 Contracture, left foot; L97.528 Non-pressure chronic ulcer of other part of left foot with other specified severity
CPT/HCPCS: 73620

== ENCOUNTER 2020-10-13 13:24 | Emergency (ER) | payer OTHER ==
[~2020-10-13] VITALS: Ht 198.1 cm; Wt 172.0 kg
[~2020-10-13 13:24] MED LIST changes: -EMPA25TA PO; -INSU100I27 SQ; -INSU100I53 SQ; -KETO15CR2 TP; -LAMO300T2 PO; -METF750T39 PO; -NABU500T11 PO; -OMEP40CA45 PO; -ONDA8TAB15 PO; -QUET50TA5 PO; -TRAZ150T49 PO
[2020-10-13 13:38] VITALS: BP 163/86
--- NOTE | 2020-10-13 14:03 | PHYS DOC ---
Past History Past Medical History: Diabetes Additional Past Medical Histor: testosterone deficiency, neuropathy Past Medical History chronic foot ulcerations Past Surgical History: Other Additional Past Surgical Histo: ortho Smoking: Non-smoker Alcohol Use: None Drug Use: None General Adult EDM: Chief Complaint: WOUND CHECK HPI: HPI: 40-year-old male with past medical history of diabetes presents for reevaluation of left lower extremity redness and swelling with associated left foot ulceration there is been ongoing for the past few days. Patient was seen by his PCP yesterday and started on Clindamycin 300mg q6h. Patient has also been dressing foot ulceration with Silvadene type ointment. Patient reports he does have a wound care management appointment morning. Patient reports his blood sugars typically run around 180 but have increased to 220s. Patient has been adjusting his diabetic medications accordingly. Patient denies any fever or chills. Patient reports history of prior foot ulcerations with cellulitis for which he was admitted inpatient on IV antibiotics. Patient reports his family became concerned given his prior history and therefore presents to the ER for reevaluation. Review of Systems: Review of Systems: Constitutional: Denies fever or chills Eyes: Denies redness or eye pain HENT: Denies nasal congestion or sore throat Respiratory: Denies cough or shortness of breath Cardiovascular: Denies chest pain or palpitations GI: Denies abdominal pain, nausea, or vomiting : Denies dysuria or hematuria Musculoskeletal: Denies back pain or joint pain Integument: Reports left lower extremity redness and swelling; reports left lateral foot ulceration Neurologic: Denies headache, focal weakness or sensory changes Complete systems were reviewed and found to be within normal limits, except as documented in this note. Allergies: Allergies: Allergies Coded Allergies Type Severity Reaction Last Updated Verified No Known Drug Allergies 12/20/19 No Physical Exam: PE: Constitutional: Well developed, obese, no acute distress, non-toxic appearance HENT: Normocephalic, atraumatic Eyes: Conjunctiva normal, no discharge Neck: Normal range of motion, supple Lungs & Thorax: No respiratory distress, equal chest rise and fall Skin: Warm, dry, mild erythema noted to anterior pretibial area and dorsum of foot which appears inside lines of previously drawn margins, 3 cm left lateral foot ulceration with some surrounding erythema noted, no fluctuance or drainable abscess appreciated Back: No tenderness, no CVA tenderness Extremities: Left lower extremity moderate swelling and redness as above, left PT and DP +2 Neurologic: Alert and oriented X 3, normal motor function, normal sensory function, no focal deficits noted Psychologic: Affect normal, judgment normal Current Patient Data: Vital Signs: Vital Signs Date Time Temp Pulse Resp B/P (MAP) Pulse Ox O2 Delivery O2 Flow Rate FiO2 10/13/20 13:38 99.1 101 22 163/86 (111) 97 Room Air EKG: EKG: [] Radiology/Procedures: Radiology/Procedures: [] Heart Score: C/O Chest Pain: N/A Course & Med Decision Making: Course & Med Decision Making Diabetic patient presents with left lower extremity cellulitis and left foot ulceration. Previously seen by PCP and started on clindamycin. Patient has been dressing wound with Silvadene type ointment. Patient presents for reevaluation as he has previously required inpatient treatment. Patient advised given history of diabetes that patient meets criteria for inpatient admission on IV antibiotics. Patient is afebrile, wound margins appear less than previously marked, and patient has follow-up appointment with wound care management on morning. Given these findings patient advised also okay for continued outpatient management with understanding to return for any worsening of symptoms or for any fever. Patient reports he would elect to continue outpatient therapy and will return for any worsening of symptoms and or fever. Patient stable for discharge with outpatient follow-up with PCP/wound care. Discussed findings and plan with patient, who acknowledges understanding and agreement. Josefina Disclaimer: Josefina Disclaimer: This electronic medical record was generated, in whole or in part, using a voice recognition dictation system. Departure Departure: Impression: Primary Impression: Cellulitis Qualified Codes: L03.116 - Cellulitis of left lower limb Additional Impression: Foot ulceration Qualified Codes: L97.529 - Non-pressure chronic ulcer of other part of left foot with unspecified severity Disposition: 01 HOME / SELF CARE / HOMELESS Condition: STABLE Referrals: TOMEKA LEWIS (PCP) Patient Instructions: Cellulitis, [id number], Skin Ulcer Additional Instructions: You have elected to continue previously prescribed oral antibiotics and plan to follow with wound care as previously scheduled on , 10/15/2020. Return immediately to emergency department for any worsening of symptoms including fever, increased redness, increased swelling, or uncontrolled blood sugars. DULCE NOYOLA DO October 13, 2020 14:03
[2020-10-14] MEDS ORDERED: INSU100I27 SQ (04:39)
[2020-10-14] MEDS ORDERED: INSU100I53 SQ (04:39)
[2020-10-14] MEDS ORDERED: KETO15CR2 TP (04:39)
[2020-10-14] MEDS ORDERED: NABU500T11 PO (04:39)
[2020-10-14] MEDS ORDERED: EMPA25TA PO (04:39)
[2020-10-14] MEDS ORDERED: METF750T39 PO (04:39)
[2020-10-14] MEDS ORDERED: QUET50TA5 PO ×2 (04:39)
[2020-10-14] MEDS ORDERED: ONDA8TAB15 PO (04:39)
[2020-10-14] MEDS ORDERED: TRAZ150T49 PO (04:39)
[2020-10-14] MEDS ORDERED: OMEP40CA45 PO (04:39)
[2020-10-14] MEDS ORDERED: LAMO300T2 PO (04:39)
== END 2020-10-13 14:09 | disposition home or self-care (01) ==
LOC: ER 13:24
DX: E11.621 Type 2 diabetes mellitus with foot ulcer (principal); L97.529 Non-pressure chronic ulcer of other part of left foot with unspecified severity; L03.116 Cellulitis of left lower limb; E11.40 Type 2 diabetes mellitus with diabetic neuropathy, unspecified
CPT/HCPCS: 99282

== ENCOUNTER 2020-10-13 23:17 | Inpatient (IN) | payer OTHER ==
[~2020-10-13] VITALS: Ht 198.1 cm; Wt 178.5 kg
[2020-10-14] MEDS ORDERED: VANCOMYCIN 2 GM in IV NORMAL SALINE 500ML 500 ML IV ONE
--- NOTE | 2020-10-14 00:09 | PHYS DOC ---
Past History Past Medical History: Diabetes Additional Past Medical Histor: testosterone deficiency, neuropathy Past Surgical History: Other Additional Past Surgical Histo: ortho Smoking: Non-smoker Alcohol Use: None Drug Use: None General Adult EDM: Chief Complaint: MULTIPLE COMPLAINTS HPI: HPI: 40-year-old male with past medical history of diabetes presents for 2nd reevaluation of left lower extremity redness and swelling with associated left foot ulceration there is been ongoing for the past few days. Patient was seen by his PCP yesterday and started on Clindamycin 300mg q6h. Patient has also been dressing foot ulceration with Silvadene type ointment. Patient reports he does have a wound care management appointment morning. Patient had been seen earlier today for same and instructed to return for any worsening of symptoms. Patient reports some associated nausea and subjective fever and chills. Patient also reports has had increased burping that "tastes like soda ". Patient became concerned and therefore presents to the ER for further evaluation and admission. Patient does report history of prior admissions for cellulitis in the past. Patient reports his blood sugars have been elevated into 200s during this period of infection. Review of Systems: Review of Systems: Constitutional: Denies fever or chills Eyes: Denies redness or eye pain HENT: Denies nasal congestion or sore throat Respiratory: Denies cough or shortness of breath Cardiovascular: Denies chest pain or palpitations GI: Denies abdominal pain, nausea, or vomiting : Denies dysuria or hematuria Musculoskeletal: Denies back pain; reports left leg pain, redness, and swelling Integument: Reports left lower extremity swelling and redness; reports left lateral foot ulceration Neurologic: Denies headache, focal weakness or sensory changes Complete systems were reviewed and found to be within normal limits, except as documented in this note. Current Medications: Current Meds: Current Medications Medications (Trade) Dose Ordered Sig/[facility] Start Time Stop Time Status Last Admin Dose Admin Famotidine (Pepcid Vial) 20 mg 1X ONCE 10/14/20 00:30 10/14/20 00:31 Fentanyl Citrate (Fentanyl 2ml Vial) 50 mcg 1X ONCE 10/14/20 00:30 10/14/20 00:31 Ondansetron HCl (Zofran) 4 mg 1X ONCE 10/14/20 00:30 10/14/20 00:31 Sodium Chloride 1,000 ml @ 1,000 mls/hr 1X ONCE 10/14/20 00:30 10/14/20 01:29 Vancomycin HCl (Vanco Per Pharmacy) 1 each PRN DAILY PRN 10/13/20 23:45 Vancomycin HCl 2 gm/Sodium Chloride 500 ml @ 250 mls/hr 1X ONCE 10/14/20 00:00 10/14/20 01:59 Allergies: Allergies: Allergies Coded Allergies Type Severity Reaction Last Updated Verified No Known Drug Allergies 12/20/19 No Physical Exam: PE: Constitutional: Well developed, obese, no acute distress, non-toxic appearance HENT: Normocephalic, atraumatic Eyes: Conjunctiva normal, no discharge Neck: Normal range of motion, supple Lungs & Thorax: No respiratory distress, equal chest rise and fall Skin: Warm, dry, mild erythema noted to anterior pretibial area and dorsum of foot which appears inside lines of previously drawn margins, 3 cm left lateral foot ulceration with some surrounding erythema noted, no fluctuance or drainable abscess appreciated Back: No tenderness, no CVA tenderness Extremities: Left lower extremity moderate swelling and redness as above, left PT and DP +2 Neurologic: Alert and oriented X 3, normal motor function, normal sensory function, no focal deficits noted Psychologic: Affect normal, judgment normal Current Patient Data: Vital Signs: Vital Signs Date Time Temp Pulse Resp B/P (MAP) Pulse Ox O2 Delivery O2 Flow Rate FiO2 10/13/20 23:37 100.1 104 18 163/86 (111) 95 Room Air EKG: EKG: [] Radiology/Procedures: Radiology/Procedures: PROCEDURE: FOOT LEFT 3V 3 view left foot HISTORY: Left lateral foot ulceration AP lateral oblique views There is ulceration seen lateral to the base of the fifth metatarsal. The visualized osseous structures appear normal. IMPRESSION: No acute bony abnormality. Electronically signed by: Yon Angela III, MD (10/14/2020 12:06 AM) [facility] Heart Score: C/O Chest Pain: N/A Course & Med Decision Making: Course & Med Decision Making Pertinent Labs and Imaging studies reviewed. (See chart for details) Patient presents for second reevaluation of left lower extremity cellulitis and diabetic foot ulceration for which patient was previously seen today for same. Patient also had been seen by PCP and started on empiric oral antibiotics. Patient is diabetic. Reports blood sugars have been increased. Presents again tonight with worsening of symptoms including subjective fever and chills as well as increased "burping ". Labs obtained and posted to chart. WBC slightly elevated. Lactic acid WNL. CRP elevated. ESR pending. BCX obtained. X-ray without acute process. Empiric vancomycin initiated. Patient requiring admission for further evaluation and treatment. Discussed with Dr. Cordero (hospitalist) who is in agreement with admission. Discussed findings and plan with patient, who acknowledges understanding and agreement. Dragon Disclaimer: Dragon Disclaimer: This electronic medical record was generated, in whole or in part, using a voice recognition dictation system. Departure Departure: Impression: Primary Impression: Cellulitis Qualified Codes: L03.116 - Cellulitis of left lower limb Additional Impressions: Failure of outpatient treatment Diabetic foot ulcer Qualified Codes: E11.621 - Type 2 diabetes mellitus with foot ulcer; L97.422 - Non-pressure chronic ulcer of left heel and midfoot with fat layer exposed Disposition: ADMITTED INPATIENT Admitting Physician: Renata Cordero Condition: STABLE Referrals: TOMEKA LEWIS (PCP) DULCE NOYOLA DO October 14, 2020 00:09
--- NOTE | 2020-10-14 00:09 | RAD ---
3 view left foot HISTORY: Left lateral foot ulceration AP lateral oblique views There is ulceration seen lateral to the base of the fifth metatarsal. The visualized osseous structur es appear normal. IMPRESSION: No acute bony abnormality. Electronically signed by: Yon Angela III, MD (10/14/2020 12:06 AM) [facility]
[2020-10-14] MEDS ORDERED: DEXTROSE 50% 25 GM / 50ML DISP.SYRIN. IV PRN (00:15)
[2020-10-14] MEDS ORDERED: ACETAMINOPHEN 325 MG TABLET PO PRN (00:15)
[2020-10-14] MEDS ORDERED: FAMOTIDINE 20 MG/2 ML VIAL IVP ONE (00:30)
[2020-10-14] MEDS ORDERED: ONDANSETRON PF 4 MG/2 ML VIAL. IVP ONE (00:30)
[2020-10-14] MEDS ORDERED: IV NORMAL SALINE 1,000ML 1,000 ML IV ONE (00:30)
[2020-10-14] MEDS ORDERED: IV NORMAL SALINE 500ML 500 ML ONE (00:54)
[2020-10-14] MEDS ORDERED: VANCOMYCIN 1 GM VIAL. ONE ×2 (00:55→01:00)
[2020-10-14 01:50] LABS: BASO % 0 % (0-3); EOS # 0.1 x10^3/uL (0.0-0.7); EOS % 1 % (0-3); HEMATOCRIT 37.7 % (39.0-53.0); HEMOGLOBIN 12.5 g/dL (13.0-17.5); LYMPH # 1.5 x10^3/uL (1.0-4.8); LYMPH % 13 % (24-48); MEAN CORPUSCULAR HEMOGLOBIN 29 pg (25-35); MEAN CORPUSCULAR HGB CONC 33 g/dL (31-37); MEAN CORPUSCULAR VOLUME 88 fL (79-100); MONO % 8 % (0-9); NEUT # 9.4 x10^3uL (1.8-7.7); NEUT % 78 % (31-73); PLATELET COUNT 320 x10^3/uL (140-400); RED CELL DISTRIBUTION WIDTH 14.1 % (11.5-14.5)
[2020-10-14 02:02] LABS: CALCIUM 8.4 mg/dL (8.5-10.1); CREATININE 1.5 mg/dL (0.7-1.3); GFR 51.3; POTASSIUM 4.2 mmol/L (3.5-5.1)
[2020-10-14 02:08] LABS: ALBUMIN 3.1 g/dL (3.4-5.0); ALBUMIN/GLOBULIN RATIO 0.7 (1.0-1.7); MAGNESIUM 2.2 mg/dL (1.8-2.4); TOTAL BILIRUBIN 0.4 mg/dL (0.2-1.0); TOTAL PROTEIN 7.3 g/dL (6.4-8.2)
[2020-10-14 02:10] VITALS: BP 110/73
--- NOTE | 2020-10-14 02:10 | NUR ---
Admission: The patient, CORIN ISBELL, 40 y/o, M admitted by MUNIR TORRES MD, was given written information regarding hospital policies, unit procedures and contact persons. Pt arrived to room 121 via [facility], accompanied by [facility] and nursing sup. Pt amb independently from gurney to bed, steady gait noted. Pt here for Lt. DFU and LLE cellulitis, failed outpatient therapy. Pt reports he noticed the ulcer on his left lateral foot approx. 1 week ago and cellulitis of LLE followed a few days later. Pt was seen by PCP and started on PO ABT, without improvement. Pt is a long time diabetic and reports he has been hospitalized for ulcers many times in the past. PMH and home meds reviewed with pt. Vanco infusing per order. Pics taken of wounds and placed in chart. Wound care consulted per protocol. Will contact Dr. Torres for VTE prophylaxis. Discussed POC, V/U. Call light in reach. Sitting up in bed, eating box lunch per request. Valuables were checked and logged. Left in room with pt. CPAP brought from home, sitting at bedside for use at .
[2020-10-14] MEDS: VANCOMYCIN PER PHARMACY MC PRN (02:40)
--- NOTE | 2020-10-14 02:41 | NUR ---
Pharmacy Vancomycin Dosing Note S:Consulted to monitor and dose vancomycin started 10/14/20. O:CORIN ISBELL is a 40 year old M with Cellulitis, . Height: 6 feet, 6 inches Weight: 172.0 kg [place] Body Weight: 91.40 Adjusted Body Weight: 123.64 Dosing Weight: Actual Other Antibiotics: LABS: Last BUN: 15 Last Creatinine: 1.5 Creatinine Clearance: 112 Last WBC: 12 Last Procalcitonin: Tmax (past 24 hours): Microbiology: I/O: Drug Levels: Last level: on at Last dose given 10/14/20 at 0100 Vancomycin Dosing: Loading Dose: 2000 mg x1 Dosing Weight: Actual Target Trough: 10-20 A: Based on: WT AND CRCL P: 1. Begin Vancomycin 1500 mg IV q8h 2. Follow up Trough level on 10/15/20 at 0030 3. Pharmacy will continue to monitor, follow and adjust therapy as needed. JAMAL BEYER RPH, 10/14/20240 Signed: 10/14/20 at 024 by JAMAL BEYER RPH PHA
[2020-10-14] MEDS: ONDANSETRON PF 4 MG/2 ML VIAL. IVP PRN ×2 (02:55→07:49)
[2020-10-14 03:14] LABS: SEDIMENTATION RATE 40 (0-15)
[2020-10-14] MEDS ORDERED: QUEtiapine 50 MG TABLET. PO PRN (04:30)
[2020-10-14] MEDS ORDERED: diphenhydrAMINE HCL 25 MG CAPSULE PO PRN (04:30)
[2020-10-14] MEDS ORDERED: KETOCONAZOLE 2% TOPICAL CREAM 30GM TUBE. TP PRN (04:30)
[2020-10-14] MEDS ORDERED: NABU500T11 PO (04:39)
[2020-10-14] MEDS ORDERED: LAMO300T2 PO (04:39)
[2020-10-14] MEDS ORDERED: TRAZ150T49 PO (04:39)
[2020-10-14] MEDS ORDERED: EMPA25TA PO (04:39)
[2020-10-14] MEDS ORDERED: QUET50TA5 PO ×2 (04:39)
[2020-10-14] MEDS ORDERED: OMEP40CA7 PO (04:39)
[2020-10-14] MEDS ORDERED: KETO15CR2 TP (04:39)
[2020-10-14] MEDS ORDERED: METF750T39 PO (04:39)
[2020-10-14] MEDS ORDERED: ONDA8TAB15 PO (04:39)
[2020-10-14] MEDS ORDERED: INSU100I53 SQ (04:39)
[2020-10-14] MEDS ORDERED: INSU100I27 SQ (04:39)
[2020-10-14] MEDS ORDERED: PIP/TAZO PER PHARMACY MC PRN (05:00)
[2020-10-14] MEDS: PIPERACILLIN/TAZOBACTAM 3.375 GM in IV NORMAL SALINE 50ML 50 ML IV SCH ×4 (06:08→23:49)
[2020-10-14 06:14] VITALS: BP 108/71
[2020-10-14 06:37] LABS: BASO % 0 % (0-3); EOS # 0.2 x10^3/uL (0.0-0.7); EOS % 2 % (0-3); HEMATOCRIT 34.4 % (39.0-53.0); HEMOGLOBIN 11.5 g/dL (13.0-17.5); LYMPH # 1.9 x10^3/uL (1.0-4.8); LYMPH % 19 % (24-48); MEAN CORPUSCULAR HEMOGLOBIN 29 pg (25-35); MEAN CORPUSCULAR HGB CONC 33 g/dL (31-37); MEAN CORPUSCULAR VOLUME 88 fL (79-100); MONO # 0.7 x10^3/uL (0.0-1.1); MONO % 7 % (0-9); NEUT # 7.3 x10^3uL (1.8-7.7); NEUT % 72 % (31-73); PLATELET COUNT 262 x10^3/uL (140-400); RED CELL DISTRIBUTION WIDTH 13.8 % (11.5-14.5); WHITE BLOOD COUNT 10.1 x10^3/uL (4.0-11.0)
[2020-10-14 06:47] LABS: ALBUMIN 2.6 g/dL (3.4-5.0); ALBUMIN/GLOBULIN RATIO 0.7 (1.0-1.7); CALCIUM 7.9 mg/dL (8.5-10.1); CREATININE 1.4 mg/dL (0.7-1.3); GFR 55.6; POTASSIUM 4.1 mmol/L (3.5-5.1); TOTAL BILIRUBIN 0.4 mg/dL (0.2-1.0); TOTAL PROTEIN 6.3 g/dL (6.4-8.2)
[2020-10-14] MEDS: HEPARIN for SUB-Q USE 5,000 UNIT/ML VIAL. SQ SCH ×3 (07:51→21:38)
[2020-10-14] MEDS: GABAPENTIN 400 MG CAPSULE. PO SCH ×4 (07:52→21:38)
[2020-10-14] MEDS: INSULIN LISPRO 300 UNITS/3 ML VIAL. SQ SCH ×6 (08:16→16:44)
[2020-10-14] MEDS: VANCOMYCIN 1.5 GM in IV NORMAL SALINE 500ML 500 ML IV SCH ×2 (08:18→16:34)
[2020-10-14] MEDS: VENLAFAXINE 50 MG TABLET. PO SCH ×3 (08:24→21:38)
[2020-10-14] MEDS ORDERED: ENOXAPARIN ** NOTE DOSE ** SYRINGE SQ SCH (09:00)
[2020-10-14] MEDS ORDERED: FUROSEMIDE 40 MG/4 ML VIAL IVP ONE (11:45)
[2020-10-14] MEDS: LACTOBACILLUS RHAMNOSUS GG 1 CAPSULE. PO SCH ×2 (11:49→21:37)
[2020-10-14 11:53] VITALS: BP 104/69
--- NOTE | 2020-10-14 11:59 | HP ---
ADMIT DATE: 10/14/2020 ATTENDING PHYSICIAN: Dr. Shoemaker. CHIEF COMPLAINT: Left leg swelling. HISTORY OF PRESENT ILLNESS: The patient is a 40-year-old gentleman with known diabetes. He has had infection in the left lower extremity wound, there is an eschar over the lateral foot. He was started PCP on clindamycin. The redness, erythema is extending up to his knee. He was admitted for inpatient therapy. Vancomycin and Zosyn has been ordered. PAST MEDICAL HISTORY: Significant for type 2 diabetes, morbid obesity with a weight of 380 pounds, testosterone deficiency, sleep apnea and peripheral neuropathy. CURRENT MEDICATIONS: He was taking Levemir, regular insulin, Jardiance and metformin, whether he was compliant remains to be seen. SOCIAL HISTORY: Nonsmoker, nondrinker. FAMILY HISTORY: Unremarkable. REVIEW OF SYSTEMS: Significant for the localized infection. No fevers, chills, COVID exposure, nausea or vomiting. All other systems reviewed and turned to be negative. PHYSICAL EXAMINATION: GENERAL: When I saw him, this is a pleasant, obese gentleman. INITIAL VITAL SIGNS: Showed a temperature of 100.1 degrees Fahrenheit, pulse 100 and regular, respiration 18, blood pressure 163/86. HEENT: Head is without trauma. Pupils are reactive. Sclerae nonicteric. Oropharynx is clear. NECK: Supple, no bruits. LUNGS: Otherwise clear. CARDIOVASCULAR: Showed regular heart tones. ABDOMEN: Obese, protuberant. No organomegaly. Bowel sounds were hypoactive. EXTREMITIES: Show redness and erythema extending up the anterior surface of the left leg up to his knees. There is a line of demarcation. It is starting to dissipate. There is a small chronic wound on the lateral portion of the foot with a black eschar. No obvious drainage. NEUROLOGIC: Focally intact. Speech was fluent. LABORATORY DATA: Creatinine is 1.5 mg/dL. Hemoglobin 11.5 g, white count 12,000. X-rays of the left foot shows no acute fractures or foreign body. ASSESSMENT: 1. A 40-year-old gentleman with cellulitis of the left foot extending up to his knees. 2. Poorly controlled diabetes mellitus. 3. Morbid obesity. 4. History of sleep apnea. 5. Peripheral neuropathy. PLAN: 1. Admit to the inpatient unit. 2. IV vancomycin and Zosyn has been ordered. 3. Serial chemistries. 4. Lasix to help with swelling. 5. Continue home meds. ABRAHAM/AUBRIE DR: Ernestina TID: [id number] CC: HUSEYIN JOHANSEN
[2020-10-14] MEDS: ONDANSETRON ODT 4 MG TAB.RAPDIS PO PRN ×2 (12:05→21:39)
[2020-10-14 15:29] VITALS: BP 133/76
[2020-10-14] MEDS: METFORMIN HCL 750 MG PO SCH (17:00)
--- NOTE | 2020-10-14 17:05 | NUR ---
Wound Care Wound Type/Assessment: patient seen per wound care consult. see wound assessment. patient has a DFU to the left lateral foot, the wound has some darkened tissue with periwound callous and redness that extends up the leg. patient is familiar to the wound care team for previous treatment in the outpatient wound clinic at [place]. the wound was cleaned, and redressed with Medihoney alginate with a foam dressing over, patient also has a hard callous to the left great toe, the skin is intact at this time,- patient would benefit from callous debridement. patient has a small opening on the left lower leg, the area was cleaned and redressed with a silver contact layer and foam. Treatment Recommendations/Plan: Recommendations for patient to be seen by wound care physician. At this time recommendations for dressing to the left lateral foot, cleanse the wound then apply Medihoney alginate with a foam dressing, change every 2-3 days. recommendations to the left lower leg cleanse the wound then apply a silver contact layer with a foam dressing, change every 2-3 days. Recommended Referrals/Tests: Recommended Referral to Wound Care Physician. Will notify the wound care team of the recommendations Discharge Recommendations for dressings: Would recommend the patient to f/u in the outpatient wound clinic at discharge. wound care will continue to f/u while patient is inpatient.
[2020-10-14 18:49] VITALS: BP 131/81
[2020-10-14] MEDS: INSULIN GLARGINE SYRINGE. SQ SCH (21:36)
[2020-10-14] MEDS: QUEtiapine 50 MG TABLET. PO SCH (21:37)
[2020-10-14] MEDS: MELOXICAM 7.5 MG TABLET PO SCH (21:37)
[2020-10-14] MEDS: EMPAGLIFLOZIN 25 MG TABLET. PO SCH (21:37)
[2020-10-14] MEDS: lamoTRIgine 100 MG TABLET. PO SCH (21:38)
[2020-10-14] MEDS: PANTOPRAZOLE 40 MG TABLET. PO SCH (21:38)
[2020-10-14] MEDS: traZODone 150 MG TABLET. PO SCH (21:38)
[2020-10-14 23:55] VITALS: BP 108/62
[2020-10-15 01:32] LABS: VANC TR 22.8 mcg/mL (10.0-20.0)
[2020-10-15] MEDS: VANCOMYCIN 1.5 GM in IV NORMAL SALINE 500ML 500 ML IV SCH ×2 (01:36→12:50)
[2020-10-15] MEDS: VANCOMYCIN PER PHARMACY MC PRN (01:47)
--- NOTE | 2020-10-15 01:51 | NUR ---
Pharmacy Vancomycin Dosing Note S:Consulted to monitor and dose vancomycin started 10/14/20. O:CORIN ISBELL is a 40 year old M with Cellulitis, . Height: 6 feet, 6 inches Weight: 175.0 kg [place] Body Weight: 91.40 Adjusted Body Weight: 124.84 Dosing Weight: Actual Other Antibiotics: LABS: Last BUN: 15 Last Creatinine: 1.5 Creatinine Clearance: 112 Last WBC: 12 Last Procalcitonin: Tmax (past 24 hours): Microbiology: I/O: Drug Levels: Last Trough level: 22.8 on 10/15/20 at 0045 Last dose given 10/14/20 at 1634 Vancomycin Dosing: Loading Dose: 2000 mg x1 Dosing Weight: Actual Target Trough: 10-20 A: Based on: SUPRATHERAPEUTIC TROUGH, P: 1. INITIATE NEW REGIMEN OF Vancomycin 1500 mg IV q12h 2. Follow up Trough level on 10/17/20 at 0030 3. Pharmacy will continue to monitor, follow and adjust therapy as needed. GEENA RAMIREZ [facility], 10/15/20 0151
[2020-10-15] MEDS: PIPERACILLIN/TAZOBACTAM 3.375 GM in IV NORMAL SALINE 50ML 50 ML IV SCH ×4 (05:43→23:43)
[2020-10-15] MEDS: HEPARIN for SUB-Q USE 5,000 UNIT/ML VIAL. SQ SCH ×3 (06:14→20:40)
[2020-10-15 06:15] VITALS: BP 103/68
[2020-10-15] MEDS: INSULIN LISPRO 300 UNITS/3 ML VIAL. SQ SCH ×6 (08:00→17:18)
[2020-10-15] MEDS: LACTOBACILLUS RHAMNOSUS GG 1 CAPSULE. PO SCH ×2 (08:30→20:42)
[2020-10-15] MEDS: VENLAFAXINE 50 MG TABLET. PO SCH ×3 (08:31→20:43)
[2020-10-15] MEDS: GABAPENTIN 400 MG CAPSULE. PO SCH ×4 (08:31→20:42)
--- NOTE | 2020-10-15 09:14 | PN ---
DATE: 10/15/2020 DATE OF SERVICE: 10/15/2020 ATTENDING PHYSICIAN: Dr. Shoemaker. SUBJECTIVE: No new complaints. He is tolerating the pain. It is better controlled. He is on CPAP. He denies any nausea. OBJECTIVE FINDINGS: VITAL SIGNS: Blood pressure this morning is 103/68. He is afebrile, temperature 97.4 degrees Fahrenheit, oxygen saturation 95% on CPAP. HEENT: Head is without trauma. Pupils are reactive. Sclerae nonicteric. Oropharynx clear. NECK: Supple, no bruits identified. LUNGS: Clear. CARDIOVASCULAR: Regular heart tones. No gallops. ABDOMEN: Obese, protuberant. No organomegaly. Bowel sounds are hypoactive. EXTREMITIES: Showed decreased swelling, erythema of the left leg. The redness and erythema is dissipating, swelling has improved. He has better range of motion in the ankle. LABORATORY DATA: Sugars have been in the mid 150's. ASSESSMENT: 1. This 40-year-old gentleman has cellulitis of the left leg, which is improving with vancomycin. 2. Poorly controlled diabetes mellitus. 3. Morbid obesity. 4. Sleep apnea. 5. Peripheral neuropathy. PLAN: 1. Continue vancomycin for another day, dosage per pharmacy. 2. P.r.n. pain control. 3. Diabetic diet. 4. CPAP ordered at night. 5. Tentative discharge plan for tomorrow. ABRAHAM/SWATHI DR: Ernestina TID: [id number]
[2020-10-15 11:02] VITALS: BP 116/70
[2020-10-15] MEDS ORDERED: LIDOCAINE 2% JELLY 6ML IN APPLICATOR. TP ONE (12:15)
[2020-10-15] MEDS ORDERED: ACETAMINOPHEN 325 MG TABLET PO PRN (13:45)
[2020-10-15 16:10] VITALS: BP 130/81
[2020-10-15] MEDS: METFORMIN HCL 750 MG PO SCH (17:00)
[2020-10-15 20:27] VITALS: BP 105/70
[2020-10-15] MEDS: MELOXICAM 7.5 MG TABLET PO SCH (20:41)
[2020-10-15] MEDS: PANTOPRAZOLE 40 MG TABLET. PO SCH (20:42)
[2020-10-15] MEDS: traZODone 150 MG TABLET. PO SCH (20:42)
[2020-10-15] MEDS: QUEtiapine 50 MG TABLET. PO SCH (20:42)
[2020-10-15] MEDS: lamoTRIgine 100 MG TABLET. PO SCH (20:42)
[2020-10-15] MEDS: EMPAGLIFLOZIN 25 MG TABLET. PO SCH (20:43)
[2020-10-15] MEDS: INSULIN GLARGINE SYRINGE. SQ SCH (21:00)
[2020-10-16] MEDS: VANCOMYCIN 1.5 GM in IV NORMAL SALINE 500ML 500 ML IV SCH ×2 (00:49→13:06)
[2020-10-16] MEDS: PIPERACILLIN/TAZOBACTAM 3.375 GM in IV NORMAL SALINE 50ML 50 ML IV SCH ×4 (05:30→22:53)
[2020-10-16] MEDS: HEPARIN for SUB-Q USE 5,000 UNIT/ML VIAL. SQ SCH ×3 (05:32→22:51)
[2020-10-16 06:10] LABS: CREATININE 1.5 mg/dL (0.7-1.3); GFR 51.3
[2020-10-16 06:45] VITALS: BP 96/65
[2020-10-16] MEDS ORDERED: LIDOCAINE 2% VISCOUS 15 ML SOLUTION. TOP ONE (07:30)
[2020-10-16] MEDS: INSULIN LISPRO 300 UNITS/3 ML VIAL. SQ SCH ×6 (08:00→17:25)
[2020-10-16] MEDS: VENLAFAXINE 50 MG TABLET. PO SCH ×3 (09:00→22:47)
[2020-10-16] MEDS ORDERED: FUROSEMIDE 40 MG/4 ML VIAL IVP ONE (09:00)
[2020-10-16] MEDS: GABAPENTIN 400 MG CAPSULE. PO SCH ×4 (09:00→22:47)
[2020-10-16] MEDS: LACTOBACILLUS RHAMNOSUS GG 1 CAPSULE. PO SCH ×2 (09:00→22:47)
--- NOTE | 2020-10-16 09:14 | PN ---
DATE: 10/16/2020 ATTENDING PHYSICIAN: Dr. Shoemaker. SUBJECTIVE: He is comfortable. Unfortunately, he is still drinking quite a bit of fluids and the swelling in the right leg has increased. The wound was also debrided this morning. OBJECTIVE FINDINGS: VITAL SIGNS: Blood pressure is 100/60, pulse is regular. He is afebrile. Oxygen saturation 95% on room air. HEENT: Head is without trauma. Pupils are reactive. Sclerae nonicteric. The oropharynx is clear. NECK: Supple, no bruits. LUNGS: Clear. CARDIOVASCULAR: Regular heart tones. ABDOMEN: Soft. EXTREMITIES: Show 2+ edema, left lower extremity. The eschar and wound of the left lateral foot was debrided unfortunately extends all the way down to the bone. SKIN: Warm and dry. LABORATORY DATA: Creatinine is 1.5 mg/dL. Nonfasting blood sugar 135. ASSESSMENT: 1. A 32-year-old male with cellulitis of the left leg, improving with vancomycin. 2. Poorly controlled diabetes mellitus. 3. Foot wound extending fairly deep into the tissue, rule out osteomyelitis. 4. Sleep apnea. 5. Peripheral neuropathy. PLAN: 1. Lasix ordered for swelling. 2. Continue vancomycin for another day. 3. We will schedule him as an outpatient on 10/20 for an MRI of the foot to rule out osteomyelitis. 4. CPAP at night. 5. Tentative discharge plans for home tomorrow with followup visit Monday at [facility]. RICCARDO DR: ABRAHAM/elsa TID: [id number] CC: HUSEYIN HECTOR
[2020-10-16 12:44] VITALS: BP 110/61
--- NOTE | 2020-10-16 13:04 | PDOC2 ---
CONSULT DOS: DATE: 10/16/20 TIME: 0745 Reason for Consult: Hospital protocol for unstable DFU Referring Physician: Dr Shoemaker Chief Complaint Left lower extremity cellulitis with left lateral foot, unstable, DFU Problem List Problems Medical Problems: (1) Cellulitis Status: Acute (2) Diabetic foot ulcer Status: Acute (3) Failure of outpatient treatment Status: Acute History of Present Illness Patient consulted per hospital protocol for DFU to his left lateral foot. Pat ient reports he first noticed the ulcer approximately 3 weeks ago. Patient states that it began as a thickened callus that was darker in presentation. Patient states approximately 1 week ago he began to notice drainage and odor from the affected area. Patient states about that same time he began to notice redness, warmth and increased pain in his left carnes region. Patient known to this nurse practitioner from previous follow-up visits at [place] outpatient wound clinic for multiple DFUs. Pt with hx of osteomyelitis in the left great toe, treated and healed out with IV abx and HBO. Due to underlying neuropathy, pt denies painful symptoms of the foot, however states he currently has pain 4/10 in his left carnes region. Past Medical History DM2, morbid obesity, testosterone deficiency, sleep apnea and peripheral neuropathy. Social History Prior to hospitalization, patient lived at home with his mother. Patient denies history of tobacco use, alcohol use or illicit drug use. Patient ambulatory without the use of assistive devices and is independent with ADLs. Current Medications Current Medications Vancomycin HCl (Vanco Per Pharmacy) 1 each PRN DAILY PRN MC SEE COMMENTS Last administered on 10/15/20at 01:47; Start 10/13/20 at 23:45 Vancomycin HCl 2 gm/Sodium Chloride 500 ml @ 250 mls/hr 1X ONCE IV Last administered on 10/14/20at 01:01; Start 10/14/20 at 00:00; Stop 10/14/20 at 01:59; Status DC Ondansetron HCl (Zofran) 4 mg 1X ONCE IVP Last administered on 10/14/20at 00:58; Start 10/14/20 at 00:30; Stop 10/14/20 at 00:31; Status DC Famotidine (Pepcid Vial) 20 mg 1X ONCE IVP Last administered on 10/14/20at 00:58; Start 10/14/20 at 00:30; Stop 10/14/20 at 00:31; Status DC Fentanyl Citrate (Fentanyl 2ml Vial) 50 mcg 1X ONCE IVP Last administered on 10/14/20at 00:58; Start 10/14/20 at 00:30; Stop 10/14/20 at 00:31; Status DC Sodium Chloride 1,000 ml @ 1,000 mls/hr 1X ONCE IV Last administered on 10/14/20at 01:01; Start 10/14/20 at 00:30; Stop 10/14/20 at 01:29; Status DC Ondansetron HCl (Zofran) 4 mg PRN Q4HRS PRN IVP SEVERE NAUSEA/VOMITING Last administered on 10/14/20at 07:49; Start 10/14/20 at 00:15; Stop 10/15/20 at 00:14; Status DC Fentanyl Citrate (Fentanyl 2ml Vial) 50 mcg PRN Q2HR PRN IVP PAIN Last administered on 10/14/20at 11:53; Start 10/14/20 at 00:15; Stop 10/14/20 at 12:29; Status DC Acetaminophen (Tylenol) 650 mg PRN Q4HRS PRN PO FEVER > 100.3'F Last administered on 10/14/20at 18:33; Start 10/14/20 at 00:15; Stop 10/15/20 at 00:14; Status DC Insulin Human Lispro (HumaLOG) 0-5 UNITS TIDWMEALS SQ Last administered on 10/14/20at 16:44; Start 10/14/20 at 08:00 Dextrose (Dextrose 50%-Water Syringe) 12.5 gm PRN Q15MIN PRN IV SEE COMMENTS; Start 10/14/20 at 00:15 Sodium Chloride 500 ml @ As Directed STK-MED ONCE .ROUTE ; Start 10/14/20 at 00:54; Stop 10/14/20 at 00:55; Status DC Vancomycin HCl (Vancomycin) 1 gm STK-MED ONCE .ROUTE ; Start 10/14/20 at 00:55; Stop 10/14/20 at 00:55; Status DC Vancomycin HCl (Vancomycin) 1 gm STK-MED ONCE .ROUTE ; Start 10/14/20 at 01:00; Stop 10/14/20 at 01:00; Status DC Vancomycin HCl 1.5 gm/Sodium Chloride 500 ml @ 250 mls/hr Q8H IV Last administered on 10/14/20at 16:34; Start 10/14/20 at 09:00; Stop 10/15/20 at 01:41; Status DC Vancomycin HCl (Vancomycin Trough Level) 1 each 1X ONCE MC Last administered on 10/15/20at 00:41; Start 10/15/20 at 00:30; Stop 10/15/20 at 00:31; Status DC Diphenhydramine HCl (Benadryl) 25 mg PRN Q8HRS PRN PO ITCHING Last administered on 10/14/20at 21:39; Start 10/14/20 at 04:30 Empaglifozin (Jardiance) 25 mg HS PO Last administered on 10/15/20at 20:43; Start 10/14/20 at 21:00 Ketoconazole (Nizoral 2% Topical) 1 sridhar PRN BID PRN TP yeast; Start 10/14/20 at 04:30 Quetiapine Fumarate (SEROquel) 50 mg HS PO Last administered on 10/15/20at 20:42; Start 10/14/20 at 21:00 Quetiapine Fumarate (SEROquel) 50 mg PRN DAILY PRN PO ANXIETY; Start 10/14/20 at 04:30 Trazodone HCl (Desyrel) 150 mg HS PO Last administered on 10/15/20at 20:42; Start 10/14/20 at 21:00 Gabapentin (Neurontin) 800 mg QID PO Last administered on 10/16/20at 09:00; Start 10/14/20 at 09:00 Insulin Human Lispro (HumaLOG) 10 units TIDWMEALS SQ Last administered on 10/15/20at 17:18; Start 10/14/20 at 08:00 Insulin Glargine (Lantus Syringe) 30 unit QHS SQ Last administered on 10/15/20at 21:00; Start 10/14/20 at 21:00 Lamotrigine (LaMICtal) 300 mg HS PO Last administered on 10/15/20at 20:42; Start 10/14/20 at 21:00 Non-Formulary Medication (Metformin Hcl (Metformin Hcl Er)) 750 mg DAILYWSUP PO ; Start 10/14/20 at 17:00; Status UNV Meloxicam (Mobic) 7.5 mg HS PO Last administered on 10/15/20 20:41; Start 10/14/20 at 21:00 Pantoprazole Sodium (Protonix) 40 mg HS PO Last administered on 10/15/20 20:42; Start 10/14/20 at 21:00 Ondansetron HCl (Zofran Odt) 8 mg PRN Q8HRS PRN PO MILD-MOD NAUSEA/VOMITING Last administered on 10/14/20at 21:39; Start 10/14/20 at 05:15 Venlafaxine HCl (Effexor) 50 mg TID PO Last administered on 10/16/20 09:00; Start 10/14/20 at 09:00 Piperacillin Sod/ Tazobactam Sod (Zosyn Per Pharmacy) 1 each PRN DAILY PRN MC SEE COMMENTS; Start 10/14/20 at 05:00 Piperacillin Sod/ Tazobactam Sod 3.375 gm/Sodium Chloride 50 ml @ 100 mls/hr Q6HRS IV Last administered on 10/16/20at 11:25; Start 10/14/20 at 06:00 Enoxaparin Sodium (Lovenox 60mg Syringe) 60 mg Q12HR SQ ; Start 10/14/20 at 09:00; Stop 10/14/20 at 07:11; Status DC Heparin Sodium (Porcine) (Heparin Sodium) 5,000 unit Q8HRS SQ Last administered on 10/16/20at 05:32; Start 10/14/20 at 07:15 Lactobacillus Rhamnosus (Culturelle) 1 cap BID PO Last administered on 10/16/20at 09:00; Start 10/14/20 at 09:00 Furosemide (Lasix) 80 mg 1X ONCE IVP Last administered on 10/14/20at 11:50; Start 10/14/20 at 11:45; Stop 10/14/20 at 11:46; Status DC Fentanyl Citrate (Fentanyl 2ml Vial) 75 mcg PRN Q2HR PRN IVP PAIN Last administered on 10/14/20at 18:46; Start 10/14/20 at 12:30; Stop 10/14/20 at 20:21; Status DC Fentanyl Citrate (Fentanyl 2ml Vial) 100 mcg PRN Q2HR PRN IVP PAIN Last administered on 10/16/20at 11:25; Start 10/14/20 at 20:30 Vancomycin HCl 1.5 gm/Sodium Chloride 500 ml @ 250 mls/hr Q12H IV Last administered on 10/16/20at 00:49; Start 10/15/20 at 13:00 Vancomycin HCl (Vancomycin Trough Level) 1 each 1X ONCE MC ; Start 10/17/20 at 00:30; Stop 10/17/20 at 00:31 Lidocaine HCl (Glydo (Lidocaine) Jelly) 1 sridhar 1X ONCE TP ; Start 10/15/20 at 12:15; Stop 10/15/20 at 12:16; Status DC Acetaminophen (Tylenol) 650 mg PRN BID PRN PO MILD PAIN / TEMP > 100.3'F; Start 10/15/20 at 13:45 Lidocaine HCl (Viscous Lidocaine) 15 ml 1X ONCE TOP Last administered on 10/16/20at 07:30; Start 10/16/20 at 07:30; Stop 10/16/20 at 07:31; Status DC Furosemide (Lasix) 80 mg 1X ONCE IVP Last administered on 10/16/20at 09:00; Start 10/16/20 at 09:00; Stop 10/16/20 at 09:01; Status DC Active Scripts Active Reported Levemir Flextouch (Insulin Detemir) 100 Unit/1 Ml Insuln.pen 30 Unit SQ HS Insulin Aspart Flexpen (Insulin Aspart) 100 Unit/1 Ml Insuln.pen 10 Unit SQ TIDWMEALS Trazodone Hcl 150 Mg Tablet 150 Mg PO HS Ondansetron Odt (Ondansetron) 8 Mg Tab.rapdis 8 Mg PO PRN Q8HRS PRN Jardiance (Empagliflozin) 25 Mg Tablet 25 Mg PO HS Nabumetone 500 Mg Tablet 500 Mg PO HS Ketoconazole 15 Gm Cream..g. 1 Sridhar TP PRN BID PRN Seroquel (Quetiapine Fumarate) 50 Mg Tablet 50 Mg PO PRN DAILY PRN Seroquel (Quetiapine Fumarate) 50 Mg Tablet 50 Mg PO HS Omeprazole 40 Mg Capsule.dr 40 Mg PO HS Lamotrigine 300 Mg Tab.er.24 300 Mg PO HS Metformin Hcl Er (Metformin Hcl) 750 Mg Tab.er.24h 750 Mg PO DAILYWSUP Vitamin D3 (Cholecalciferol (Vitamin D3)) 1,000 Unit Tablet 1 Tab PO DAILY Benadryl (Diphenhydramine Hcl) 25 Mg Capsule 25 Mg PO Q8HRS PRN LAST DOSE GIVEN: DATE: TODAY TIME: 10 AM NEXT DOSE DUE: DATE: TODAY TIME: IF AND WHEN NEEDED Venlafaxine Hcl Er (Venlafaxine Hcl) 150 Mg Cap.er.24h 150 Mg HS NOT GIVEN IN THE HOSPITAL NEXT DOSE DUE: DATE: RESTART TODAY TIME: AT BEDTIME Gabapentin 800 Mg Tablet 800 Mg PO QID LAST DOSE GIVEN: DATE: TODAY TIME: AFTERNOON NEXT DOSE DUE: DATE: TODAY TIME: PM Axiron (Testosterone) 30 Mg/1.5 Ml Wandy.glove cutter 30 Mg TD DAILY NOT GIVEN IN THE HOSPITAL NEXT DOSE DUE: DATE: RESTART TONITE TIME: AT BEDTIME Allergies: Coded Allergies: No Known Drug Allergies (Unverified , 12/20/19) Review of System Patient states that he is feeling well this morning. Patient states that he continues to have a good appetite and is eating and drinking well without nausea, vomiting or diarrhea. Patient denies headache or mood swings. Patient denies chest pain, shortness of breath or cough. Patient denies fevers or flulike symptoms. Physical Exam Patient awake and alert 40-year-old male in no apparent distress. Patient pleasant in conversation is a good historian. Vital signs are stable. Patient is afebrile. Respirations are even and unlabored. Patient is on room air not requiring supplemental oxygen at this time. Bilateral lower extremities with 2+ pitting edema. Abdomen is soft, nondistended and nontender to palpation. Left lower extremity with mild erythema over the left carnes. Outer l imits previously outlined, current erythema within those boundaries. Left medial great toe with significant callus overgrowth with darker pigmentation. No surrounding erythema or edema present. The left lateral foot presents with a 1 x 1.9 cm ulceration with 100% boggy slough. Undermining is present. Surrounding tissue with erythema and edema that is warm to touch. Following patient consent and application of topical lidocaine, sterile curette, sterile scissors and pickups used to excisional debride nonviable tissue from wound bed. Patient tolerated without complaints of painful symptoms. Minimal bleeding controlled with pressure. Following debridement wound measures 1 x 1.9 x 1 cm. Undermining is present from 6-12 o'clock with a max depth of 1.2. Bone is palpable, remainder of wound bed 60% granulation with 40% slough. Quanta flow was obtained at [facility] on 12/12/2019 were 1.35 on the left. X-rays obtained at [place] on 10/14/2020 were negative for osseous abnormality. Most recent hemoglobin A1c 11, history of greater than 14. VITALS Vital Signs Date Time Temp Pulse Resp B/P (MAP) Pulse Ox O2 Delivery O2 Flow Rate FiO2 10/16/20 11:54 18 95 Room Air 10/16/20 06:45 60 96/65 (75) 10/15/20 16:10 98.1 10/14/20 23:55 Labs Laboratory Tests Test 10/14/20 16:24 10/14/20 21:07 10/15/20 00:45 10/15/20 11:59 Glucose (Fingerstick) 171 mg/dL (70-99) 155 mg/dL (70-99) 148 mg/dL (70-99) Vancomycin Level Trough 22.8 mcg/mL (10.0-20.0) Vancomycin Last Dose Date 10/15/20 Vancomycin Last Dose Time 1700 Test 10/15/20 17:13 10/15/20 21:41 10/16/20 05:53 10/16/20 07:31 Glucose (Fingerstick) 136 mg/dL (70-99) 135 mg/dL (70-99) 133 mg/dL (70-99) Creatinine 1.5 mg/dL (0.7-1.3) Estimated GFR (Cockcroft-Gault) 51.3 Test 10/16/20 11:54 Glucose (Fingerstick) 141 mg/dL (70-99) Assessment/Plan 1) Left lower extremity cellulitis -Currently on vancomycin per IV -Leukocytosis and erythema to left carnes region has improved since admission 2) Left lateral foot DFU - Excisionally debrided at bedside due to unstable eschar/slough. 1.6cm of undermining with bone palpable post debridement. - Recommend MRI with contrast to r/o osteomyelitis with continuation of IV abx. - Recommend Arterial Doppler to ensure adequate blood flow for wound healing. - Surgical shoe with minimal ambulation for offloading - Serial debridement needed with possible OR debridement in the near future. TOY [facility] October 16, 2020 13:04
[2020-10-16] MEDS: HYDROmorphone PF 1 MG/ML DISP.SYRIN IVP PRN ×3 (14:45→22:53)
[2020-10-16] MEDS: METFORMIN HCL 750 MG PO SCH (15:16)
[2020-10-16 15:33] VITALS: BP 110/75
--- NOTE | 2020-10-16 18:11 | NUR ---
SHIFT NOTE Pt seen by wound care today and complains of pain to area that was cared for. Multiple rounds of fentanyl given with little relief. Order for Dilaudid obtained and pt states it is helping his pain. IV abx continued and pt to discharge tomorrow. Will continue to monitor. ADRIAN, RN
[2020-10-16 19:00] VITALS: BP 109/72
[2020-10-16] MEDS: ONDANSETRON ODT 4 MG TAB.RAPDIS PO PRN (19:34)
[2020-10-16] MEDS: lamoTRIgine 100 MG TABLET. PO SCH (22:47)
[2020-10-16] MEDS: MELOXICAM 7.5 MG TABLET PO SCH (22:48)
[2020-10-16] MEDS: PANTOPRAZOLE 40 MG TABLET. PO SCH (22:48)
[2020-10-16] MEDS: traZODone 150 MG TABLET. PO SCH (22:48)
[2020-10-16] MEDS: QUEtiapine 50 MG TABLET. PO SCH (22:50)
[2020-10-16] MEDS: EMPAGLIFLOZIN 25 MG TABLET. PO SCH (22:50)
[2020-10-16] MEDS: INSULIN GLARGINE SYRINGE. SQ SCH (22:52)
[2020-10-17 00:04] VITALS: BP 111/68
[2020-10-17 02:28] LABS: VANC TR 18.6 mcg/mL (10.0-20.0)
[2020-10-17] MEDS: VANCOMYCIN 1.5 GM in IV NORMAL SALINE 500ML 500 ML IV SCH (02:50)
[2020-10-17] MEDS: VANCOMYCIN PER PHARMACY MC PRN (03:12)
--- NOTE | 2020-10-17 03:19 | NUR ---
Pharmacy Vancomycin Dosing Note S:Consulted to monitor and dose vancomycin started 10/14/20. O:CORIN ISBELL is a 40 year old M with Cellulitis, . Height: 6 feet, 6 inches Weight: 178.5 kg [place] Body Weight: 91.40 Adjusted Body Weight: 126.24 Dosing Weight: Actual Other Antibiotics: LABS: Last BUN: 16 Last Creatinine: 1.5 Creatinine Clearance: 112 Last WBC: 12 Last Procalcitonin: Tmax (past 24 hours): 98.1 Microbiology: 10/17 BCX NGTD I/O: 1250/2 VOIDS Drug Levels: Last Trough level: 18.6, drawn late, true trough ~20.5 on 10/17/20 at 0125 Last dose given 10/17/20 at 0250 Vancomycin Dosing: Loading Dose: 2000 mg x1 Dosing Weight: Actual Target Trough: 10-20 A: Based on: ELEVATED TRUE TROUGH, DESIRE FOR LOWER TROUGH GOAL (10-20), P: 1. INITIATE NEW REGIMEN OF Vancomycin 1250 mg IV q12h 2. Follow up Trough level NEEDED 3. Pharmacy will continue to monitor, follow and adjust therapy as needed. GEENA RAMIREZ [facility], 10/17/20 [id number]
--- NOTE | 2020-10-17 04:36 | NUR ---
Nursing note: Pt c/o pain, relieved by dilaudid. Pt bandage on L lateral foot came lose, re-dressed with honey alginate and mepilex per orders from wound care. Vanc trough 18.6, continuing dose at 1.5 g/500mL per pharmacy.
[2020-10-17] MEDS: PIPERACILLIN/TAZOBACTAM 3.375 GM in IV NORMAL SALINE 50ML 50 ML IV SCH (06:23)
[2020-10-17] MEDS: HEPARIN for SUB-Q USE 5,000 UNIT/ML VIAL. SQ SCH (06:24)
[2020-10-17 07:31] LABS: CREATININE 1.7 mg/dL (0.7-1.3); GFR 44.4
[2020-10-17] MEDS: INSULIN LISPRO 300 UNITS/3 ML VIAL. SQ SCH ×2 (08:00→09:08)
[2020-10-17] MEDS: VENLAFAXINE 50 MG TABLET. PO SCH (09:05)
[2020-10-17] MEDS: LACTOBACILLUS RHAMNOSUS GG 1 CAPSULE. PO SCH (09:05)
[2020-10-17] MEDS: GABAPENTIN 400 MG CAPSULE. PO SCH (09:05)
[2020-10-17] MEDS: ONDANSETRON ODT 4 MG TAB.RAPDIS PO PRN (09:15)
[2020-10-17] MEDS: HYDROmorphone PF 1 MG/ML DISP.SYRIN IVP PRN (09:16)
--- NOTE | 2020-10-17 11:08 | NUR ---
DISCHARGE Pt discharged today by Dr. Shoemaker. Pt verbalized understanding of discharge paperwork and hard copy prescriptions. All questions addressed. Pt WC to the entrance and picked up by . Pt ambulated out of hospital entrance. CC, RN
--- NOTE | 2020-10-17 14:32 | DS ---
DATE OF DISCHARGE: 10/17/2020 ATTENDING PHYSICIAN: Dr. Shoemaker. FINAL DISCHARGE DIAGNOSES: 1. Diabetic foot ulcer, left foot. 2. Cellulitis refractory to outpatient care. 3. Morbid obesity. 4. Poorly controlled diabetes. 5. Underlying sleep apnea. 6. Peripheral neuropathy. 7. Insomnia. HISTORY AND PHYSICAL: The patient is a 40-year-old gentleman with known diabetes. He has a diabetic foot ulcer that has led to cellulitis extending all the way up to his left leg to his knee, refractory to outpatient care. He was admitted for further treatment and evaluation. There is a wound to the lateral portion of the foot, which was debrided. PHYSICAL EXAMINATION: Please see the dictated note. PERTINENT LABORATORY AND X-RAY STUDIES: Admission hemoglobin was 12.5 g/dL, white count 10,100. Chemistry panel showed creatinine of 1.7 mg/dL. Nonfasting blood sugar 201. Liver panel unremarkable. Toxicology: Vancomycin levels were drawn. Urinalysis was unremarkable. COURSE IN THE HOSPITAL: The patient was admitted. He received 4 full days of intravenous antibiotics including Zosyn and vancomycin. There is improvement in the redness and erythema subsided and swelling was improved with Lasix. There was a consult to the wound team. They were able to debride the wound. It does extend fairly deep into the tissue all the way to near the bone. An MRI of the foot was recommended. This will be done as an outpatient since we do not have MRI capabilities here at this hospital. Therefore, on the 4th hospital day, the patient was discharged home with 10 more days of Bactrim-DS 1 b.i.d. along with doxycycline 100 mg p.o. b.i.d. In addition, I wrote him a script for Dilaudid 4 mg p.o. every 6 hours p.r.n. pain, #20 with no refill, in addition Lasix 80 mg p.o. q.a.m. as needed and finally Restoril 30 mg at bedtime p.r.n. insomnia in place of his trazodone. Other home meds are unchanged. They include the following: He will continue his insulin as scheduled, Jardiance as scheduled vitamin D, Neurontin, ketaconazole, Lamictal, omeprazole, Seroquel p.r.n., testosterone injections, and finally Effexor 150 mg at bedtime. For now, we held his nabumetone, ondansetron and trazodone. He has a followup appointment with the wound clinic at [place] on Monday on 10/20. At that time, they will schedule an MRI of the foot as an outpatient. If indeed osteomyelitis is indicated, he may need to return for long-term IV antibiotics. Total discharge time is 48 minutes. ABRAHAM/GALINA/REBECCA DR: Ernestina TID: [id number] CC: TOMEKA LEWIS
[2020-10-17] MEDS ORDERED: VANCOMYCIN 1.25 GM in IV NORMAL SALINE 250ML 250 ML IV SCH (15:00)
== END 2020-10-17 11:05 | disposition home or self-care (01) | DRG 623 ==
LOC: EEVIPCON 23:17 → ER 23:17 → 1 SOUTH 10-14 00:13
PROVIDERS: ADMIT Internal Medicine; ATTEND Internal Medicine
PROC: 5A09357 Assistance with Respiratory Ventilation, Less than 24 Consecutive Hours, Continuous Positive Airway Pressure (ICD-10-PCS; 2020-10-14)
PROC: 5A09357 Assistance with Respiratory Ventilation, Less than 24 Consecutive Hours, Continuous Positive Airway Pressure (ICD-10-PCS; 2020-10-15)
PROC: 0JBR0ZZ Excision of Left Foot Subcutaneous Tissue and Fascia, Open Approach (ICD-10-PCS; principal; 2020-10-16)
PROC: 5A09357 Assistance with Respiratory Ventilation, Less than 24 Consecutive Hours, Continuous Positive Airway Pressure (ICD-10-PCS; 2020-10-16)
DX: E11.628 Type 2 diabetes mellitus with other skin complications (principal); L03.116 Cellulitis of left lower limb; L97.422 Non-pressure chronic ulcer of left heel and midfoot with fat layer exposed; Z68.42 Body mass index [BMI] 45.0-49.9, adult; E11.621 Type 2 diabetes mellitus with foot ulcer; E11.42 Type 2 diabetes mellitus with diabetic polyneuropathy; E11.65 Type 2 diabetes mellitus with hyperglycemia; E66.01 Morbid (severe) obesity due to excess calories; G47.00 Insomnia, unspecified; G47.30 Sleep apnea, unspecified; L97.509 Non-pressure chronic ulcer of other part of unspecified foot with unspecified severity; E29.1 Testicular hypofunction; M79.89 Other specified soft tissue disorders
CPT/HCPCS: 36415; 73630; 80053; 80202; 82565; 82947; 83605; 83735; 85025; 85651; 86140; 87040; 96365; 96375; J1170; J1644; J1815; J1940; J2405; J2543; J3010; J3370; J3490; J7040; Q0162; Q0163; 99285-25; J7030

== ENCOUNTER 2020-12-14 15:15 | Emergency (ER) | payer OTHER ==
[~2020-12-14] VITALS: Ht 200.7 cm; Wt 163.6 kg
[~2020-12-14 15:15] MED LIST changes: +EMPA25TA PO; +INSU100I27 SQ; +INSU100I53 SQ; +KETO15CR2 TP; +LAMO300T2 PO; +METF750T39 PO; +NABU500T11 PO; +OMEP40CA7 PO; +ONDA8TAB15 PO; +QUET50TA5 PO; +TRAZ150T49 PO
--- NOTE | 2020-12-14 16:00 | RAD ---
PA and lateral views of the chest. Comparison: 11/08/2020. Indication: Chest pain Findings: Right-sided PICC line is seen with tip in the SVC right atrial junction. The heart size is enlarged b ut stable. No pneumothorax or effusion. No air space or interstitial disease. The bony structures ar e intact. Impression: 1. No acute cardiopulmonary process. Electronically signed by: Lanre Stanley MD (12/14/2020 3:58 PM) [facility]
[2020-12-14 16:15] LABS: BASO # 0.1 x10^3/uL (0.0-0.2); BASO % 1 % (0-3); EOS # 0.3 x10^3/uL (0.0-0.7); EOS % 3 % (0-3); HEMATOCRIT 48.9 % (39.0-53.0); LYMPH % 22 % (24-48); MEAN CORPUSCULAR HEMOGLOBIN 28 pg (25-35); MEAN CORPUSCULAR HGB CONC 33 g/dL (31-37); MEAN CORPUSCULAR VOLUME 87 fL (79-100); MONO # 0.6 x10^3/uL (0.0-1.1); MONO % 6 % (0-9); NEUT # 6.1 x10^3uL (1.8-7.7); NEUT % 68 % (31-73); PLATELET COUNT 338 x10^3/uL (140-400); RED BLOOD COUNT 5.62 x10^6/uL (4.30-5.70); RED CELL DISTRIBUTION WIDTH 15.6 % (11.5-14.5)
[2020-12-14 16:27] LABS: CALCIUM 8.7 mg/dL (8.5-10.1); CREATININE 1.9 mg/dL (0.7-1.3); GFR 39.1; POTASSIUM 4.3 mmol/L (3.5-5.1)
--- NOTE | 2020-12-14 16:56 | PHYS DOC ---
Past History Past Medical History: Diabetes, Pancreatitis Additional Past Medical Histor: testosterone deficiency, neuropathy, kleinsfelter syndrome,osteomyolytis (ALBANIA MONTOYA APRN) Past Surgical History: Other Additional Past Surgical Histo: ortho(left foot), shoulder repair, rt elbow repair (ALBANIA MONTOYA APRN) Smoking: Non-smoker Alcohol Use: None Drug Use: None (ALBANIA MONTOYA APRN) General Adult EDM: Chief Complaint: CHEST PAIN HPI: HPI: Patient is a 40-year-old male being seen in the ER for epigastric chest pain that started around 1530 today. Patient reports the chest pain started when he was having his PICC line flushed by his home health nurse. Along with the chest pain he started experiencing lightheadedness, shortness of breath, nausea. He describes the chest pain as sharp and rates it 7 out of 10. Patient reports that he had similar symptoms 2 weeks ago and was diagnosed with a PE. He is taking 15 mg of Xarelto twice a day. He denies missing any doses. Patient has a PICC line for a wound VAC to his left lower extremity from osteomyelitis. Patient denies fever, cough. (ALBANIA MONTOYA APRN) Review of Systems: Review of Systems: 14 body systems of the review of systems have been reviewed. See HPI for pertinent positive and negative responses, otherwise all other systems are negative, nonpertinent or noncontributory (ALBANIA MONTOYA APRN) Allergies: Allergies: Allergies Coded Allergies Type Severity Reaction Last Updated Verified No Known Drug Allergies 12/20/19 No (ALBANIA MONTOYA APRN) Physical Exam: PE: Constitutional: Well developed, well nourished, no acute distress, non-toxic appearance. [] HENT: Normocephalic, atraumatic Eyes: PERRL, conjunctiva normal, no discharge. [] Neck: Normal range of motion, no stridor Cardiovascular:Heart rate regular rhythm, no murmur, epigastric pain worse with palpation, no edema [] Lungs & Thorax: Bilateral breath sounds clear to auscultation [] Abdomen: Bowel sounds normal, soft, epigastric pain with palpation, no masses, no pulsatile masses. [] Skin: Warm, dry, no erythema, no rash, wound VAC to left lateral lower extremity, wound VAC and dressing intact with no surrounding signs of infection such as redness, warmth, swelling, neuro intact bilateral lower extremities. [] Back: Normal range of motion Extremities: No tenderness, no cyanosis, no clubbing, ROM intact, no edema. [] Neurologic: Alert and oriented X 3, normal motor function, normal sensory function, no focal deficits noted. [] Psychologic: Affect normal, judgement normal, mood normal. [] (ALBANIA MONTOYA APRN) Current Patient Data: Labs: Laboratory Tests Test 12/14/20 15:53 White Blood Count 9.0 x10^3/uL (4.0-11.0) Red Blood Count 5.62 x10^6/uL (4.30-5.70) Hemoglobin 16.0 g/dL (13.0-17.5) Hematocrit 48.9 % (39.0-53.0) Mean Corpuscular Volume 87 fL (79-100) Mean Corpuscular Hemoglobin 28 pg (25-35) Mean Corpuscular Hemoglobin Concent 33 g/dL (31-37) Red Cell Distribution Width 15.6 % (11.5-14.5) H Platelet Count 338 x10^3/uL (140-400) Neutrophils (%) (Auto) 68 % (31-73) Lymphocytes (%) (Auto) 22 % (24-48) L Monocytes (%) (Auto) 6 % (0-9) Eosinophils (%) (Auto) 3 % (0-3) Basophils (%) (Auto) 1 % (0-3) Neutrophils # (Auto) 6.1 x10^3uL (1.8-7.7) Lymphocytes # (Auto) 2.0 x10^3/uL (1.0-4.8) Monocytes # (Auto) 0.6 x10^3/uL (0.0-1.1) Eosinophils # (Auto) 0.3 x10^3/uL (0.0-0.7) Basophils # (Auto) 0.1 x10^3/uL (0.0-0.2) Sodium Level 142 mmol/L (136-145) Potassium Level 4.3 mmol/L (3.5-5.1) Chloride Level 107 mmol/L (98-107) Carbon Dioxide Level 22 mmol/L (21-32) Anion Gap 13 (6-14) Blood Urea Nitrogen 15 mg/dL (8-26) Creatinine 1.9 mg/dL (0.7-1.3) H Estimated GFR (Cockcroft-Gault) 39.1 Glucose Level 204 mg/dL (70-99) H Calcium Level 8.7 mg/dL (8.5-10.1) Troponin I Quantitative < 0.017 ng/mL (0-0.055) Vital Signs: Vital Signs Date Time Temp Pulse Resp B/P (MAP) Pulse Ox O2 Delivery O2 Flow Rate FiO2 12/14/20 15:29 98.0 87 14 130/87 97 Room Air (ALBANIA MONTOYA APRN) EKG: EKG: EKG performed by ER staff at 1637 shows sinus rhythm, no STEMI as read by Dr. Montalvo (ALBANIA MONTOYA APRN) Radiology/Procedures: Radiology/Procedures: REASON: chest pain PROCEDURE: CHEST PA & LATERAL PA and lateral views of the chest. Comparison: 11/08/2020. Indication: Chest pain Findings: Right-sided PICC line is seen with tip in the SVC right atrial junction. The heart size is enlarged but stable. No pneumothorax or effusion. No air space or interstitial disease. The bony structures are intact. Impression: 1. No acute cardiopulmonary process. Electronically signed by: Lanre Stanley MD (12/14/2020 3:58 PM) [facility] DICTATED AND SIGNED BY: LANRE STANLEY MD DATE: 12/14/20 1557 CC: TOMEKA LEWIS; ALBANIA MONTOYA APRN ~MTH0 0 (ALBANIA MONTOYA APRN) Heart Score: C/O Chest Pain: Yes HEART Score for Chest Pain: HEART Score for Chest Pain Response (Comments) Value History Moderately Suspicious 1 ECG Normal 0 Age < 45 0 Risk Factors >3 Risk Factors or Hx CAD 2 Troponin < Normal Limit 0 Total 3 Risk Factors: Risk Factors: DM, Current or recent (<one month) smoker, HTN, HLP, family history of CAD, obesity. Risk Scores: Score 0 - 3: 2.5% MACE over next 6 weeks - Discharge Home Score 4 - 6: 20.3% MACE over next 6 weeks - Admit for Clinical Observation Score 7 - 10: 72.7% MACE over next 6 weeks - Early Invasive Strategies (ALBANIA MONTOYA APRN) Course & Med Decision Making: Course & Med Decision Making Pertinent Labs and Imaging studies reviewed. (See chart for details) Patient is a 40-year-old male being seen in the ER today for epigastric chest pain accompanied by shortness of breath, nausea, lightheadedness. Patient has a history of a PE 2 weeks ago and is on Xarelto. Patient has extensive medical history including osteomyelitis. Work-up in the ER included blood work, chest x-ray, EKG. EKG shows sinus rhythm, blood work was unremarkable, chest x-ray negative for any acute findings. I discussed these findings with patient. He is concerned because his home health nurse could not flush his PICC line and we were unable to flush it in the ER. Spoke with Dr. Shoemaker regarding admission of patient for PICC line team evaluation. Patient to return in the morning for outpatient procedure with the PICC line team. RN spoke with JESSICA Shah with PICC line team and she is aware of patient. Patient given his Zosyn and daptomycin in the ER prior to discharge. I discussed with patient all findings and diagnostic testing as well as the need to follow-up with PCP for further evaluation and treatment or return to the ER if any new or worsening symptoms. Strict return precautions were also discussed at length. Patient voiced understanding and agreement with the plan. Patient is hemodynamically stable at the time of disposition. (ALBANIA MONTOYA APRN) Dragon Disclaimer: Dragon Disclaimer: This electronic medical record was generated, in whole or in part, using a voice recognition dictation system. (ALBANIA MONTOYA APRN) Attending Co-Sign The patient was seen and interviewed as well as examined at the bedside. The chart was reviewed. The case was discussed. Agree with the plan of care. (SAHRA ZALDIVAR DO) Departure Departure: Impression: Primary Impression: Chest pain Qualified Codes: R07.9 - Chest pain, unspecified Additional Impression: Occlusion of peripherally inserted central catheter (PICC) line Qualified Codes: T82.898A - Other specified complication of vascular prosthetic devices, implants and grafts, initial encounter Disposition: HOME / SELF CARE / HOMELESS Condition: GOOD Referrals: TOMEKA LEWIS (PCP) Patient Instructions: Chest Pain (Nonspecific), PICC Home Guide Additional Instructions: You were seen in the ER today for chest pain. Your work-up was unremarkable. You should follow-up with your primary care provider tomorrow regarding your ER visit today. Regarding your PICC line, you need to follow-up outpatient tomorrow at [facility] for PICC line evaluation. Please call in the morning to set up an appointment with the PICC line nurse. You were given your first dose of your antibiotics in the ER. If you develop chest pain, shortness of breath, dizziness, fevers, nausea, vomiting please return to the ER immediately. EMERGENCY DEPARTMENT GENERAL DISCHARGE INSTRUCTIONS Thank you for coming to [facility] (ED) today and trusting us with you care. We trust that you had a positivie experience in our Emergency Department. If you wish to speak to the department management, you may call the director at [phone]. YOUR FOLLOW UP INSTRUCTIONS ARE FOLLOWS: 1. Do you have a private Doctor? If you do not have a private doctor, please ask for a resource list of physicians or clinics that may be able to assist you with follow up care. 2. The Emergency Physician has interpreted your x-rays. The X-Ray specialist will also review them. If there is a change in the findings, you will be notified in 48 hours when at all possible. 3. A lab test or culture has been done, your results will be reviewed and you will be notified if you need a change in treatment. ADDITIONAL INSTRUCTIONS AND INFORMATION: 1. Your care today has been supervised by a physician who is specially trained in emergency care. Many problems require more than one evaluation for a complete diagnosis and treatment. We recommend that you schedule your follow up appointment as recommended to ensure complete treatment of you illness or injury. If you are unable to obtain follow up care and continue to have a problem, or if your condition worsens, we recommend that you return to the ED. 2. We are not able to safely determine your condition over the phone nor are we able to give sound medical advice over the phone. For these safety reasons, if you call for medical advice we will ask you to come to the ED for further evaluation. 3. If you have any questions regarding these discharge instructions please call the ED at [phone]. SAFETY INFORMATION: In the interest of safety, wellness, and injury prevention; we encourage you to wear your sealbelt, if you smoke; quite smoking, and we encourage family to use a protective helmet for bicycling and other sporting events that present an increased risk for head injury. IF YOUR SYMPTOMS WORSEN OR NEW SYMPTOMS DEVELOP, OR YOU HAVE CONCERNS ABOUT YOUR CONDITION; OR IF YOUR CONDITION WORSENS WHILE YOU ARE WAITING FOR YOUR FOLLOW UP APPOINTMENT; EITHER CONTACT YOUR PRIMARY CARE DOCTOR, THE PHYSICIAN WHOSE NAME AND NUMBER YOU WERE GIVEN, OR RETURN TO THE ED IMMEDIATELY. ALBANIA MONTOYA APRN Dec 14, 2020 16:56 SAHRA ZALDIVAR DO Dec 15, 2020 05:59
[2020-12-14] MEDS ORDERED: PIPERACILLIN/TAZOBACTAM 4.5 GM in IV NORMAL SALINE 50ML 50 ML IV ONE (20:15)
[2020-12-14] MEDS ORDERED: DAPTOMYCIN IV ONE (20:15)
[2020-12-14] MEDS ORDERED: NORMAL SALINE IV ONE (20:15)
--- NOTE | 2020-12-14 20:42 | EKG ---
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
--- NOTE | 2020-12-14 20:44 | EKG ---
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
[2020-12-14] MEDS ORDERED: IV NORMAL SALINE 50ML 50 ML ONE (22:01)
[2020-12-14] MEDS ORDERED: PIPERACILLIN/TAZOBACTAM 4.5 GM VIAL IV ONE (22:01)
[2020-12-14 23:25] VITALS: BP 140/71
== END 2020-12-14 23:25 | disposition home or self-care (01) ==
LOC: ER 15:15
DX: T82.898A Other specified complication of vascular prosthetic devices, implants and grafts, initial encounter (principal); R07.89 Other chest pain; R10.13 Epigastric pain; E11.40 Type 2 diabetes mellitus with diabetic neuropathy, unspecified
CPT/HCPCS: 36415; 71046; 80048; 84484; 85025; 85379; 93005; 96365; 96367; 96375; 96376; 99285; J0878; J2543; J3010

== ENCOUNTER 2021-01-31 15:18 | Emergency (ER) | payer OTHER ==
[~2021-01-31] VITALS: Ht 200.7 cm; Wt 163.6 kg
[2021-01-31 15:18] VITALS: BP 88/62
[2021-01-31] MEDS ORDERED: ONDANSETRON PF 4 MG/2 ML VIAL. ONE (16:16)
--- NOTE | 2021-01-31 16:56 | RAD ---
XR CHEST 1V CLINICAL INDICATIONS: Shortness of air, nausea, fever COMPARISON: December 14, 2020. Findings: No acute lung infiltrate or pleural effusion or pulmonary edema or lung mass or pneumothora x is seen. The heart size, pulmonary vasculature, mediastinum and both wan are stable. IMPRESSION: No acute radiographic abnormality is seen. Electronically signed by: Billy Tolliver MD (01/31/2021 4:54 PM) [id number]
--- NOTE | 2021-01-31 17:13 | PHYS DOC ---
Past History Past Medical History: Diabetes, Pancreatitis Additional Past Medical Histor: testosterone deficiency, neuropathy, kleinsfelter syndrome,osteomyolytis Past Surgical History: Other Additional Past Surgical Histo: ortho(left foot), shoulder repair, rt elbow repair Smoking: Non-smoker Alcohol Use: None Drug Use: None General Adult EDM: Chief Complaint: FEVER HPI: HPI: 40-year-old male past medical history of insulin-dependent diabetes and obesity, presents the ED with complaints of fever, chills, dry mouth, headache and nausea and vomiting. Patient states his glucose is normally in the 120s but has been in the 240s today. Received his moderna vaccine in August. RN informed me pt was tahcycardic and had a fever. Review of Systems: Review of Systems: Constitutional: Denies confusion or lethargy Eyes: Denies change in visual acuity HENT: Denies nasal congestion or sore throat Respiratory: Denies cough or shortness of breath or hemoptysis Cardiovascular: Denies chest pain or edema or syncope GI: Denies abdominal pain, bloody stools or diarrhea : Denies dysuria or hematuria Musculoskeletal: Denies back pain or joint pain Integument: Denies rash or diaphoresis Neurologic: Denies headache or neck stiffness Endocrine: Denies polyuria or polydipsia Lymphatic: Denies swollen glands Psychiatric: Denies depression or anxiety Current Medications: Current Meds: Current Medications Medications (Trade) Dose Ordered Sig/Dalton Start Time Stop Time Status Last Admin Dose Admin Acetaminophen (Tylenol) 650 mg 1X ONCE 01/31/21 16:30 01/31/21 16:31 DC Ondansetron HCl (Zofran) 4 mg 1X ONCE 01/31/21 16:15 01/31/21 16:24 DC Sodium Chloride 1,000 ml @ 1,000 mls/hr Q1H 01/31/21 16:15 01/31/21 17:14 Allergies: Allergies: Allergies Coded Allergies Type Severity Reaction Last Updated Verified No Known Drug Allergies 12/20/19 No Physical Exam: PE: Constitutional: Well developed, well nourished, no acute distress, non-toxic appearance. HENT: Normocephalic, atraumatic, dry mucous membranes Eyes: EOMI, conjunctiva normal, no discharge. Neck: Normal range of motion, supple, Cardiovascular: S1/2 present, regular rhythm on monitor during my presentation Lungs & Thorax: Speaking in full sentences, bilateral equal chest rise, no tachypnea or increased work of breathing Abdomen: soft, no tenderness, Skin: Warm, dry, no erythema, no rash. [] Extremities: No tenderness, no cyanosis, Neurologic: Alert and oriented X 3, normal motor function, normal sensory function, no focal deficits noted. [] Psychologic: Affect normal, judgement normal, mood normal. [] EKG: EKG: [] Radiology/Procedures: Radiology/Procedures: IMAGING REPORT Signed PATIENT: CORIN ISBELL ACCOUNT: [id number] : 1980 LOCATION: ER AGE: 40 SEX: M EXAM STATUS: REG ER ORD. PHYSICIAN: TOY NICHOLE DO REASON: soa, nausea, fever PROCEDURE: PORTABLE CHEST 1V XR CHEST 1V CLINICAL INDICATIONS: Shortness of air, nausea, fever COMPARISON: December 14, 2020. Findings: No acute lung infiltrate or pleural effusion or pulmonary edema or lung mass or pneumothorax is seen. The heart size, pulmonary vasculature, mediastinum and both wan are stable. IMPRESSION: No acute radiographic abnormality is seen. Electronically signed by: Renzo Tolliver MD (01/31/2021 4:54 PM) [id number] DICTATED AND SIGNED BY: RENZO TOLLIVER MD DATE: 01/31/211652 CC: TOMEKA LEWIS; TOY NICHOLE DO ~MTH0 0 Heart Score: C/O Chest Pain: No Risk Factors: Risk Factors: DM, Current or recent (<one month) smoker, HTN, HLP, family history of CAD, obesity. Risk Scores: Score 0 - 3: 2.5% MACE over next 6 weeks - Discharge Home Score 4 - 6: 20.3% MACE over next 6 weeks - Admit for Clinical Observation Score 7 - 10: 72.7% MACE over next 6 weeks - Early Invasive Strategies Course & Med Decision Making: Course & Med Decision Making Pertinent Labs and Imaging studies reviewed. (See chart for details) COVID-19 CRITERIA: The patient was evaluated during the global COVID-19 pandemic, and that diagnosis was suspected/considered upon their initial presentation. Their evaluation, treatment and testing was consistent with current guidelines for patients who present with complaints or symptoms that may be related to COVID-19. Concern for fever in the setting of nausea, vomiting and headache. Symptoms could represent an upper respiratory infection, Covid test pending. Chest x-ray with no infiltrates. Urinalysis with no signs of infection. Tachycardia resolved with IV fluids. Labs show chronic kidney disease with no leukocytosis or anion gap. Lactic acid slightly elevated which is nonspecific could be related to dehydration. Will discharge home with strict ED return precautions were given for persistent fever, dehydration, chest pain, dyspnea, increased work of breathing or neurologic deficits. Encouraged urgent outpatient follow-up with PMD for reevaluation. Life-threatening processes were considered but are low suspicion at this time, given history, physical exam and ED workup. Pt was educated on all prescription medications and adverse effects. All patient's questions were answered and pt was stable at time of discharge. Life/limb-threatening differential includes but is not limited to, surgical abdomen (appendicitis, cholecystitis, diverticulitis, inflammatory bowel disease, abscess, perforation), meningitis, encephalitis, Jay's angina, endocarditis, myocarditis, life-threatening rash (necrotizing fasciitis), gyne cologic and urologic emergencies (endometritis, ovarian/testicular torsion, TOA, obstructive nephropathy, prostatitis), head and neck abscess, infection concerning for sepsis or shock, or respiratory failure. I have spoken with the patient and/or caregivers. I explained the patient's condition, diagnoses and treatment plan based on the information available to me at this time. I have answered the patient and/or caregiver's questions and addressed any concerns. The patient and/or caregivers have a good understanding of patient's diagnosis, condition and treatment plan as can be expected at this point. Vital signs have been stable. Patient's condition is stable and appropriate for discharge from the emergency department. Patient will pursue further outpatient evaluation with primary care physician or other designated or consulting physician as outlined in the discharge instruc tions. The patient and/or caregivers are agreeable to this plan of care and follow-up instructions have been explained in detail. The patient and/or caregivers have received these instructions in written form and have expressed an understanding of the discharge instructions. The patient and/or caregivers are aware that any significant change of condition or worsening of symptoms should prompt immediate return to this or the closest emergency department or call to 911. Josefina Disclaimer: Josefina Disclaimer: This electronic medical record was generated, in whole or in part, using a voice recognition dictation system. Departure Departure: Impression: Primary Impression: Fever of unknown origin Additional Impressions: Person under investigation for COVID-19 CKD (chronic kidney disease) Disposition: HOME / SELF CARE / HOMELESS Condition: STABLE Referrals: TOMEKA LEWIS (PCP) Follow-up with your primary care physician in 24 to 48 hours OR FOLLOW UP WITH FAMILY MEDICINE: [address], [address] [place] [address] Patient Instructions: Fever of Unknown Origin, Fever, Adult Additional Instructions: Return to ED immediately if your oxygen level drops below 90% (purchase a pulse oximetry at a medical supply store), difficulties breathing including rapid breathing or increased work of breathing (skin sucking under ribs), chest pain or stroke-like symptoms (facial droop, speech changes, arm/leg weakness). You have been tested for or diagnosed with COVID-19. It is an infection caused by a new type of coronavirus. COVID-19 will cause cold-like or mild flu symptoms in most. It can cause more severe symptoms like problems breathing in some. There is no treatment for COVID-19. The body will clear the infection over time. Self-care will help to ease discomfort. Steps to Take: Self-Care Rest as needed. Healthy habits may help you feel better. Steps include: Choose healthy foods including fruits and vegetables. Drink water throughout the day. Get plenty of sleep each night. If you smoke, try to quit. It may ease breathing. Avoid alcohol. Keep Others Healthy The virus can spread to others. Droplets are released every time you sneeze or cough. The droplets can get into the mouth, nose, or eyes of people near you and lead to infection. To lower the chances of spreading COVID-19 to others: Stay at home until your doctor has said it is safe to leave. If you tested positive this will mean staying isolated until both of the following are true: At least 7 days have passed since the start of illness. You are free of fever for at least 72 hours without the use of medicine. During this time: - Avoid public areas, events, or transportation. Do not return to work or school until your doctor has said it is safe to do so. - Call ahead if you need to go to a medical center. Let them know you may have COVID-19. It will help them guide you where to go. They may also ask you to wear a facemask when you come to the office. - If you call for emergency medical services, let them know you may have COVID- 19. While at home: - Try to avoid close contact with others. Stay about 6 feet away. - If possible, spend most of your time in a separate room from others. - Use a face mask if you will be in close contact with others such as sharing a room or vehicle. - Have someone wipe down common surfaces in the home. Use household furniture repairer every day on areas like doorknobs, counters, or sinks. - Cough or sneeze into a tissue. Throw the tissue away right after use. If a tissue is not available, cough or sneeze into your elbow. - Wash your hands often. Wash them after sneezing or coughing. Use soap and water and wash for at least 20 seconds. Alcohol based hand fish cleaner machine tender can be used if soap and water is not available. - Do not prepare food for others. Avoid sharing personal items like forks, spoons, or toothbrushes. - Avoid close contact with pets while you are sick. There is no evidence of the virus passing to pets. This is a safety step until more is known about this virus. Isolation can be frustrating. Social interaction can help. Keep in touch with friends and family through phone and tech options. You can still interact with others in your home, just keep a safe distance of about 6 feet. Follow-up: Your doctors office will check in with you to see if there are any changes in your health. You may be asked to keep track of symptoms to share with them. They will also let you know when you are clear to be in public again. Problems to Look Out For: Contact your doctor if your recovery is not going as you expect. Get emergency care if you have problems such as: - Trouble breathing - Nonstop chest pain or pressure - Changes in awareness, confusion, or problems waking - Lips or face have bluish color - Worsening of symptoms If you think you have an emergency, call for emergency medical services right away. As taken from [facility],TOY Dupree DO Jan 31, 2021 17:13
[2021-01-31] MEDS: ACETAMINOPHEN 325 MG TABLET PO ONE (17:23)
[2021-01-31] MEDS: ONDANSETRON PF 4 MG/2 ML VIAL. IVP ONE (17:24)
[2021-01-31] MEDS: IV NORMAL SALINE 1,000ML 1,000 ML IV SCH (17:24)
[2021-01-31 17:27] LABS: BASO % 0 % (0-3); EOS # 0.1 x10^3/uL (0.0-0.7); EOS % 1 % (0-3); HEMATOCRIT 58.5 % (39.0-53.0); HEMOGLOBIN 17.6 g/dL (13.0-17.5); LYMPH # 0.3 x10^3/uL (1.0-4.8); LYMPH % 3 % (24-48); MEAN CORPUSCULAR HEMOGLOBIN 26 pg (25-35); MEAN CORPUSCULAR HGB CONC 30 g/dL (31-37); MEAN CORPUSCULAR VOLUME 87 fL (79-100); MONO # 0.4 x10^3/uL (0.0-1.1); MONO % 4 % (0-9); NEUT # 9.8 x10^3uL (1.8-7.7); NEUT % 92 % (31-73); PLATELET COUNT 244 x10^3/uL (140-400); RED BLOOD COUNT 6.76 x10^6/uL (4.30-5.70); RED CELL DISTRIBUTION WIDTH 16.4 % (11.5-14.5); WHITE BLOOD COUNT 10.7 x10^3/uL (4.0-11.0)
[2021-01-31 17:52] LABS: ALBUMIN 3.6 g/dL (3.4-5.0); DIRECT BILIRUBIN 0.1 mg/dL (0.0-0.2); MAGNESIUM 2.2 mg/dL (1.8-2.4); POTASSIUM 4.7 mmol/L (3.5-5.1); TOTAL BILIRUBIN 0.4 mg/dL (0.2-1.0); TOTAL PROTEIN 7.7 g/dL (6.4-8.2)
[2021-01-31 17:53] LABS: BARBITURATES NEG (NEG); BENZODIAZEPINES NEG (NEG); CANNABINOIDS NEG (NEG); COCAINE NEG (NEG); METHADONE NEG (NEG); OPIATES NEG (NEG); PHENCYCLIDINE NEG (NEG)
[2021-01-31 17:56] LABS: AMPHETAMINE/METHAMPHETAMINE NEG (NEG)
[2021-01-31 18:10] LABS: BACTERIA,URINE 0 /HPF (0-FEW); BILIRUBIN,URINE NEG (NEG); CLARITY,URINE CLEAR; COLOR,URINE YELLOW; GLUCOSE,URINE >=1000 mg/dL (NEG); NITRITE,URINE NEG (NEG); RBC,URINE 0 /HPF (0-2); UROBILINOGEN,URINE 0.2 mg/dL (0.2 mg/dL); WBC,URINE 0 /HPF (0-4)
[2021-01-31 18:23] LABS: CALCIUM 8.6 mg/dL (8.5-10.1); CREATININE 1.8 mg/dL (0.7-1.3); GFR 41.6
--- NOTE | 2021-01-31 21:57 | EKG ---
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
--- NOTE | 2021-02-02 12:07 | NUR ---
IP: Informed pt of negative covid test. Pt verbalized understanding.
== END 2021-01-31 18:40 | disposition home or self-care (01) ==
LOC: ER 15:18
DX: N18.9 Chronic kidney disease, unspecified (principal); E11.22 Type 2 diabetes mellitus with diabetic chronic kidney disease; E11.40 Type 2 diabetes mellitus with diabetic neuropathy, unspecified; R51.9 Headache, unspecified; R11.2 Nausea with vomiting, unspecified; Z20.822 Contact with and (suspected) exposure to COVID-19
CPT/HCPCS: 36415; 71045; 80048; 80076; 80307; 81001; 82010; 82550; 83605; 83690; 83735; 83880; 84484; 85025; 87040; 93005; 96361; 96374; 99285; C9803; J2405; J7030; U0003

== ENCOUNTER 2021-10-10 05:05 | Emergency (ER) | payer OTHER ==
[~2021-10-10] VITALS: Ht 200.7 cm; Wt 163.6 kg
[~2021-10-10 05:05] MED LIST changes: +CLIN-95 PO; -CLIN300C9 PO; -EMPA25TA PO; +EMPA25TA3 PO; -LEVO500T8 PO; +LEVO500T9 PO; +TIZA-75 PO; -TIZA4TAB2 PO
[2021-10-10] MEDS ORDERED: LIDOCAINE 2%/EPI 1:100,000 20 ML VIAL. ONE (05:19)
[2021-10-10 05:22] VITALS: BP 152/97
[2021-10-10] MEDS: HYDROcodone/APAP 5/325MG 1 TAB TABLET PO ONE (05:30)
[2021-10-10] MEDS: LIDOCAINE 2%/EPI 1:100,000 20 ML VIAL. IJ ONE (05:31)
--- NOTE | 2021-10-10 05:35 | PHYS DOC ---
Past History Past Medical History: Diabetes, Pancreatitis Additional Past Medical Histor: testosterone deficiency, neuropathy, kleinsfelter syndrome,osteomyolytis Past Surgical History: Other Additional Past Surgical Histo: ortho(left foot), shoulder repair, rt elbow repair Smoking: Non-smoker Alcohol Use: None Drug Use: None Adult General Chief Complaint Chief Complaint: HEAD INJURY/TRAUMA [facility] HPI Patient is a 41-year-old male presenting to the emergency department for evaluation of head injury that was sustained shortly prior to arrival. Patient says that he was leaning back in his chair and fell and hit up against his bed. He has a laceration to his posterior scalp and says that his tetanus is up-to-date. He initially said that he was on many medications and thought that he was on blood thinners however after further discussion he may have been confusing blood pressure medications for blood thinners. Patient admits that he has been drinking alcohol but he is alert and orient x3 and ambulates with a steady gait. He said he hurts in his head neck and mid back but denies any low back chest abdomen or extremity pain and no weakness numbness or tingling. He is in no acute distress. Review of Systems Review of Systems Constitutional: Denies fever or chills [] Eyes: Denies change in visual acuity, redness, or eye pain [] Respiratory: Denies cough or shortness of breath [] Cardiovascular: No additional information not addressed in HPI [] GI: Denies abdominal pain, nausea, vomiting, bloody stools or diarrhea [] Musculoskeletal: + back pain. No joint pain [] Integument: + laceration Neurologic: + headache. No focal weakness or sensory changes [] All other systems were reviewed and found to be within normal limits, except as documented in this note. Current Medications Current Medications Current Medications Medications (Trade) Dose Ordered Sig/Dalton Start Time Stop Time Status Last Admin Dose Admin Acetaminophen/ Hydrocodone Bitart (Lortab 5/325) 2 tab 1X ONCE 10/10/21 06:00 10/10/21 06:01 Lidocaine/ Epinephrine (Xylocaine 2%-Epi 1:100,000) 20 ml STK-MED ONCE 10/10/21 05:19 10/10/21 05:20 DC Allergies Allergies Allergies Coded Allergies Type Severity Reaction Last Updated Verified No Known Drug Allergies 12/20/19 No Physical Exam Physical Exam Constitutional: Well developed, well nourished, no acute distress, non-toxic appearance. [] HENT: Normocephalic, bilateral external ears normal, oropharynx moist, no oral exudates, nose normal. [] Eyes: PERRLA, EOMI, conjunctiva normal, no discharge. [] Neck: Normal range of motion, + midline C spine tenderness, supple, no stridor. [] Cardiovascular:Heart rate regular rhythm, no murmur [] Lungs & Thorax: Bilateral breath sounds clear to auscultation [] Abdomen: Bowel sounds normal, soft, no tenderness, no masses, no pulsatile masses. [] Skin: Midline posterior parietal scalp region with an approximate 5 cm vertical laceration with no deeper structures or foreign body visualized. Back: Midline cervical and thoracic tenderness to palpation but no obvious step- off or deformity and there is no midline lumbar tenderness to palpation. Extremities: No tenderness, no cyanosis, no clubbing, ROM intact, no edema. [] Neurologic: Alert and oriented X 3, normal motor function, normal sensory function, no focal deficits noted. [] Current Patient Data Vital Signs Vital Signs Date Time Temp Pulse Resp B/P (MAP) Pulse Ox O2 Delivery O2 Flow Rate FiO2 10/10/21 05:22 98.2 109 18 152/97 (115) 97 Room Air EKG EKG [] Radiology/Procedures Radiology/Procedures Indication: [Scalp laceration] Procedure: The patient was placed in the appropriate position and anesthesia around the wound approximately 6 cc of 2% lidocaine with epinephrine was used to anesthetize the wound with good anesthesia. The area was then [cleansed with Hibiclens and irrigated copiously with saline]. The laceration was then closed with 6 tami Total repaired wound length: 5 cm Other Items: The patient tolerated the procedure well Complications: None Heart Score C/O Chest Pain: No Risk Factors: Risk Factors: DM, Current or recent (<one month) smoker, HTN, HLP, family history of CAD, obesity. Risk Scores: Risk Factors: DM, Current or recent (<one month) smoker, HTN, HLP, family history of CAD, obesity. Course & Med Decision Making Course & Med Decision Making Patient with mechanical fall posteriorly out of his chair. His laceration was closed and he was told to have the tami removed in 7 to 10 days with his primary care provider or come back to emergency department to have them removed. His CT scans showed no acute pathology but all incidental findings and the need for follow-up with primary care provider within 1 week were discussed with the patient. Patient aware and agreeable with plan for discharge and verbalized understanding the need for short-term follow-up and strict ED return precautions discussed can worsening pain neurologic changes or other general concerns. Dragon Disclaimer Dragon Disclaimer This electronic medical record was generated, in whole or in part, using a voice recognition dictation system. Departure Departure: Impression: Primary Impression: CHI (closed head injury) Additional Impressions: Scalp laceration Acute cervical sprain Thoracic back sprain Disposition: HOME / SELF CARE / HOMELESS Condition: STABLE Referrals: TOMEKA LEWIS (PCP) Patient Instructions: Laceration Care, Adult Problem Qualifiers Primary Impression: CHI (closed head injury) Encounter type: initial encounter Qualified Codes: S09.90XA - Unspecified injury of head, initial encounter Additional Impressions: Scalp laceration Encounter type: initial encounter Qualified Codes: S01.01XA - Laceration without foreign body of scalp, initial encounter Acute cervical sprain Encounter type: initial encounter Qualified Codes: S13.9XXA - Sprain of joints and ligaments of unspecified parts of neck, initial encounter Thoracic back sprain Encounter type: initial encounter Qualified Codes: S23.9XXA - Sprain of unspecified parts of thorax, initial encounter KP HSIEH DO October 10, 2021 05:35
--- NOTE | 2021-10-10 05:55 | RAD ---
CT Head W/O Contrast: History: Reason: pain s/p fall / Spl. Instructions: / History: Comparison: none Axial images were obtained without contrast. The boles and white matter appears normal and symmetrical for the patients age. There is no mass effe ct, extraaxial fluid collections or hydrocephalus. There is no gross bleed. There is no focal loss of boles-white matter distinction to suggest acute ischemia, i.e. stroke. Impression: No acute findings. End of impression CT C-Spine without contrast: Clinical History: Reason: pain s/p fall / Spl. Instructions: / History: Technique: Axial helical images of the cervical spine were obtained without contrast, axial coronal and sagittal reconstruction was performed. Findings: There is no loss of vertebral body stature. There is no prevertebral soft tissue swelling. The vert ebral bodies are well aligned. The C1-C2 relationship is normal. The visualized osseous structures a ppear normal. There is straightening of the normal cervical lordosis which can be positional or can b e secondary to muscle spasm. Evaluation of the central canal is limited without contrast. Impression: No acute findings. Clinical correlation suggested. Impression CT thoracic spine without contrast History: Reason: pain s/p fall / Spl. Instructions: / History: Axial helical images of the thoracic spine were obtained without contrast. Axial, coronal and sagitta l reconstruction was performed. Findings: The vertebral bodies are aligned. There is no loss of vertebral body stature. Evaluation of the central canal is limited without contrast. There is no evidence of significant cent ral or neuroforaminal stenosis. Impression: No acute findings. PQRS Compliance Statement: One or more of the following individualized dose reduction techniques were utilized for this examinat ion: 1. Automated exposure control 2. Adjustment of the mA and/or kV according to patient size 3. Use of iterative reconstruction technique Electronically signed by: Yon Angela III, MD (10/10/2021 5:53 AM) [facility]
[2021-10-10] MEDS: MORPHINE SULFATE 4 MG/ML DISP.SYRIN. IM ONE (05:58)
[2021-10-10] MEDS ORDERED: HYDR-2155 PO (06:00)
[2021-10-10] MEDS ORDERED: diazePAM 5 MG TABLET. PO ONE (06:30)
== END 2021-10-10 06:07 | disposition home or self-care (01) ==
LOC: ER 05:05
DX: S01.01XA Laceration without foreign body of scalp, initial encounter (principal); S23.3XXA Sprain of ligaments of thoracic spine, initial encounter; S13.9XXA Sprain of joints and ligaments of unspecified parts of neck, initial encounter; E11.40 Type 2 diabetes mellitus with diabetic neuropathy, unspecified; W07.XXXA Fall from chair, initial encounter; Y93.89 Activity, other specified; Y92.89 Other specified places as the place of occurrence of the external cause; Y99.8 Other external cause status
CPT/HCPCS: 12002; 70450; 72125; 72128; 96372; 99284; J2270